=== PATIENT | female | born 1950 | race Hispanic/Latino ===

== ENCOUNTER 2022-09-12 08:51 | Emergency (ER) | payer OTHER ==
--- OUTSIDE RECORDS SUMMARY | 2022-09-12 09:04 | XMS REPORT | Continuity of Care Document ---
:1950 Author Organization [facility] t Address [address] [place] [address] Care Team Providers Name Role Phone Blane Cartwright MD Primary Care Physician DARWIN HONEYCUTT Attending Clinician Unavailable BLANE CARTWRIGHT Attending Clinician Unavailable Gypsy Edwards Attending Clinician GYPSY THOMAS Attending Clinician Unavailable Blane Cartwright MD Attending Clinician IRMA FUENTES Attending Clinician Unavailable Irma Desai Attending Clinician Doctor Unassigned, [place] Attending Clinician Unavailable Pob, [facility] Main Attending Clinician Unavailable Kristina Thomas LVN Attending Clinician Unavailable RADIOLOGY Attending Clinician Unavailable DARRYL DOTY Attending Clinician Unavailable Darryl Doty MD Attending Clinician Dashawn White MD Attending Clinician DASHAWN WHITE Attending Clinician Unavailable JACKIE DESHPANDE Attending Clinician Unavailable Jackie Willard Attending Clinician Radiology Attending Clinician Unavailable Lab, Ang - Db Attending Clinician Unavailable LAXMI REJI S Attending Clinician Unavailable Reji López S Attending Clinician JENNIFER SERNA Attending Clinician Unavailable Jennifer Serna DO Attending Clinician Katrina Sullivan MD Attending Clinician KATRINA SULLIVAN Attending Clinician Unavailable RIKKI CARTER Attending Clinician Unavailable RIKKI CARTER Attending Clinician Unavailable Rikki Carter MD Attending Clinician , [facility] Sleep Lab Bed Attending Clinician Unavailable Omaghansa MATERIALS BRANCH CHIEFThongayemgerardo Attending Clinician Gina Light Attending Clinician GINA CASTANEDA Attending Clinician Unavailable Provider, [facility] Attending Clinician Unavailable [facility], [facility] Fam Pob I Attending Clinician Unavailable NORA HAYDEN Attending Clinician Unavailable Ashvin Sarmiento DO Attending Clinician GARY MCGILL Attending Clinician Unavailable Manjit Candelaria MD Attending Clinician MANJIT CANDELARIA Attending Clinician Unavailable Kg Villegas MD Attending Clinician KG VILLEGAS Attending Clinician Unavailable Zi Story MD Attending Clinician David Mcguire MD Attending Clinician DARWIN HONEYCUTT Admitting Clinician Unavailable EMMA GRAY Admitting Clinician Unavailable CARLINE ESPINAL Admitting Clinician Unavailable Payers Payer Name Policy Type Policy Number Effective Date Expiration Date S pako MEDICARE PART [id number] 2015 A \T\ B 00:00:00 [id number] 2021 00:00:00 [employer] [id number] 2014 [facility] [id number] 00:00:00 [facility] [id number]-PresentTri Branch care Problems Condition Condition Condition Status Onset Resolution Last Treating Co mments Source Name Details Category Date Date Treatment Clinician Date Oral Oral Disease Active 2021-10 Univers lesion lesion 11-06 ity of 00:00: [place] 00 Medical Branch Urge Urge Disease Active Overview: Univer s incontinen incontinen 06-01 Formattin ity of ce ce 00:00: g of this [place] 00 note Medical might be Branch different from the original. Added automatic ally from request for surgery [id number] Neuropathy Neuropathy Disease Active U nivers 2-07 ity of 00:00: [place] [facility] Rash Rash Disease Active Univers 2-07 ity of 00:00: [place] 00 Medical Branch OAB OAB Disease Active Univers (overactiv (overactiv 2-05 it y of e bladder) e bladder[place] [facility] [place] Screening Screening Disease Active Overview: Univers for for 05-31 Formattin ity of colorectal colorectal 00:00: g of this [place] cancer cancer 00 note Medical might be Branch different from the original. Added automatic ally from request for surgery [id number] Elevated Elevated Disease Active Unive rs AST (SGOT) AST (SGOT) 6-15 it y of 00:00: [place] 00 Medical Branch Anxiety Anxiety Disease Active Univers 3-08 ity of 00:00: [place] 00 Medical Branch Other Other Disease Active Univers fatigue fatigue 3-08 ity of 00:00: [place] 00 Medical Branch Depression Depression Disease Active 2014-10 U nivers 1-19 ity of 00:00: [place] 00 Medical Branch Herpes Herpes Disease Active 2014-10 Univers simplex simplex 1-19 ity of without without 00:00: [place] complicati complicati 00 Me dical on on Branch Insomnia Insomnia Disease Active 2014-10 Unive rs 1-19 ity of 00:00: [place] 00 Medical Branch Reflux Reflux Disease Active 2014-10 Univers esophagiti esophagiti -19 it y of s s 00:00: [place] 00 Medical Branch Hyperlipid Hyperlipid Disease Active 2014-10 U nivers emia emia -19 ity of 00:00: [place] 00 Medical Branch Menopausal Menopausal Disease Active 2014-10 U nivers syndrome syndrome -19 ity of 00:00: [place] 00 Medical Branch Migraine Migraine Disease Active 2014-10 Unive rs 1-19 ity of 00:00: [place] 00 Medical Branch Hypothyroi Hypothyroi Disease Active 2014-10 U nivers dism dism - ity of 00:00: [place] 00 Medical Branch Hypertensi Hypertensi Disease Active U nivers on on 12-21 ity of 00:00: [place] 00 Medical Branch Chronic Chronic Disease Active Univers pain pain -12 ity of disorder disorder 00:00: [place] 00 Medical [place] Allergies, Adverse Reactions, Alerts Allergy Allergy Status Severity Reaction(s) Onset Inactive Treating Comm ents Source Name Type Date Date Clinician HYDROXYC DRUG Active High Rash Univers HLOROQUI INGREDI 06-04 ity of NE 00:00: [place] 00 Medical Branch Hydroxyc Propensi Active Rash Patient Unive rs hloroqui ty to 06-04 reports ity of ne adverse 00:00: sever [place] reaction 00 rash. Medical s to Branch drug NO KNOWN Drug Active Univers ALLERGIE Class ity of S [facility] Social History Social Habit Start Date Stop Date Quantity Comments Source Exposure to 2022-08-27 2022-09-06 Not sure [facility] SARS-CoV-2 00:00:00 10:39:00 [facility] [place] [facility] (event) [place] Alcohol intake 2022-09-06 2022-09-06 0 /d University of 00:00:00 00:00:00 [facility] Tobacco use and 2022-04-29 2022-04-29 Smokeless tobacco Un iversity of exposure 00:00:00 00:00:00 non-user [facility] Sex [birth year] At [birth year] Universit y of 00:00:00 00:00:00 [facility] Smoking Status Start Date Stop Date Source Never smoked tobacco [facility] Medications Ordered Filled Start Stop Current Ordering Indication Dosage Frequency Signature Comments Components Source Medication Medication Date Date Medication? Clinician (SIG) Name Name predniSONE 2021-10 Yes [id number] 20mg Take 1 Univers 20 mg 1- 07 tablet by ity of tablet 00:00: mouth in [place] 00 the Medical morning. Branch predniSONE 2021-10 Yes [id number] 20mg Take 1 Univers 20 mg 1- 07 tablet by ity of tablet 00:00: mouth in [place] 00 the Medical morning. Branch predniSONE 2021-10 Yes [id number] 20mg Take 1 Univers 20 mg 1- 07 tablet by ity of tablet 00:00: mouth in [place] 00 the Medical morning. Branch nystatin 2021-10 Yes [id number] Apply to Univers 100,000 1-09 area(s) 2 ity of unit/gram 00:00: (two) [place] cream 00 times Medical daily. Branch triamcinolo 2021- Yes [id number] Apply TID Univers ne 10-18 07 after ity of acetonide 00:00: meals. [place] 0.1 % 00 Follow-up Medical dental with Branch paste dentist. nystatin 2021-10 Yes [id number] Apply to Univers 100,000 1-09 area(s) 2 ity of unit/gram 00:00: (two) [place] cream 00 times Medical daily. Branch triamcinolo 2021- Yes [id number] Apply TID Univers ne 10-18 07 after ity of acetonide 00:00: meals. [place] 0.1 % 00 Follow-up Medical dental with Branch paste dentist. nystatin 2021-10 Yes [id number] Apply to Univers 100,000 1-09 area(s) 2 ity of unit/gram 00:00: (two) [place] cream 00 times Medical daily. Branch triamcinolo 2021- Yes [id number] Apply TID Univers ne 10-18 07 after ity of acetonide 00:00: meals. [place] 0.1 % 00 Follow-up Medical dental with Branch paste dentist. nystatin 2021-10 Yes [id number] Apply to Univers 100,000 1-09 area(s) 2 ity of unit/gram 00:00: (two) [place] cream 00 times Medical daily. Branch triamcinolo 2021- Yes [id number] Apply TID Univers ne 10-18 07 after ity of acetonide 00:00: meals. [place] 0.1 % 00 Follow-up Medical dental with Branch paste dentist. nystatin 2021-10 Yes [id number] Apply to Univers 100,000 1-09 area(s) 2 ity of unit/gram 00:00: (two) [place] cream 00 times Medical daily. Branch triamcinolo 2021- Yes [id number] Apply TID Univers ne 1 07 after ity of acetonide 00:00: meals. [place] 0.1 % 00 Follow-up Medical dental with Branch paste dentist. nystatin 2021-10 Yes [id number] Apply to Univers 100,000 10-18 area(s) 2 ity of unit/gram 00:00: (two) [place] cream 00 times Medical daily. Branch triamcinolo 2021-10 Yes [id number] Apply TID Univers ne 10-18 07 after ity of acetonide 00:00: meals. [place] 0.1 % 00 Follow-up Medical dental with Branch paste dentist. nystatin 2021-10 Yes [id number] Apply to Univers 100,000 10-18 area(s) 2 ity of unit/gram 00:00: (two) [place] cream 00 times Medical daily. Branch triamcinolo 2021-10 Yes [id number] Apply TID Univers ne 10-18 07 after ity of acetonide 00:00: meals. [place] 0.1 % 00 Follow-up Medical dental with Branch paste dentist. HYDROcodone 2021-10 Yes [id number] 1{tbl} Take 1 Un enrique -acetaminop 1-03 tablet by ity of hen 10-325 00:00: mouth [place] mg tablet 00 every 6 Medical (six) Branch hours as needed for Pain (scale 4-6). Indication s: chronic pain valACYclovi 2021-10 Yes [id number] 500mg Take 1 Univers r (VALTREX) 1-03 tablet by ity of 500 mg 00:00: mouth in [place] tablet 00 the Medical morning Branch and 1 tablet at noon and 1 tablet in the evening. HYDROcodone 2021-10 Yes [id number] 1{tbl} Take 1 Un enrique -acetaminop 1-03 tablet by ity of hen 10-325 00:00: mouth [place] mg tablet 00 every 6 Medical (six) Branch hours as needed for Pain (scale 4-6). Indication s: chronic pain valACYclovi 2021-10 Yes [id number] 500mg Take 1 Univers r (VALTREX) 1-03 tablet by ity of 500 mg 00:00: mouth in [place] tablet 00 the Medical morning Branch and 1 tablet at noon and 1 tablet in the evening. HYDROcodone 2021-10 Yes [id number] 1{tbl} Take 1 Un enrique -acetaminop 1-03 tablet by ity of hen 10-325 00:00: mouth [place] mg tablet 00 every 6 Medical (six) Branch hours as needed for Pain (scale 4-6). Indication s: chronic pain valACYclovi 2021-10 Yes [id number] 500mg Take 1 Univers r (VALTREX) 1-03 tablet by ity of 500 mg 00:00: mouth in [place] tablet 00 the Medical morning Branch and 1 tablet at noon and 1 tablet in the evening. HYDROcodone 2021-10 Yes [id number] 1{tbl} Take 1 Un enrique -acetaminop 1-03 tablet by ity of hen 10-325 00:00: mouth [place] mg tablet 00 every 6 Medical (six) Branch hours as needed for Pain (scale 4-6). Indication s: chronic pain valACYclovi 2021-10 Yes [id number] 500mg Take 1 Univers r (VALTREX) 1-03 tablet by ity of 500 mg 00:00: mouth in [place] tablet 00 the Medical morning Branch and 1 tablet at noon and 1 tablet in the evening. HYDROcodone 2021-10 Yes [id number] 1{tbl} Take 1 Un enrique -acetaminop 1-03 tablet by ity of hen 10-325 00:00: mouth [place] mg tablet 00 every 6 Medical (six) Branch hours as needed for Pain (scale 4-6). Indication s: chronic pain valACYclovi 2021-10 Yes [id number] 500mg Take 1 Univers r (VALTREX) 1-03 tablet by ity of 500 mg 00:00: mouth in [place] tablet the Medical morning Branch and 1 tablet at noon and 1 tablet in the evening. HYDROcodone 2021-10 Yes [id number] 1{tbl} Take 1 Un enrique -acetaminop 1-03 tablet by ity of hen 10-325 00:00: mouth [place] mg tablet 00 every 6 Medical (six) Branch hours as needed for Pain (scale 4-6). Indication s: chronic pain valACYclovi 2021-10 Yes [id number] 500mg Take 1 Univers r (VALTREX) 1-03 tablet by ity of 500 mg 00:00: mouth in [place] tablet 00 the Medical morning Branch and 1 tablet at noon and 1 tablet in the evening. HYDROcodone 2021-10 Yes [id number] 1{tbl} Take 1 Un enrique -acetaminop 1-03 tablet by ity of hen 10-325 00:00: mouth [place] mg tablet 00 every 6 Medical (six) Branch hours as needed for Pain (scale 4-6). Indication s: chronic pain valACYclovi 2021-10 Yes [id number] 500mg Take 1 Univers r (VALTREX) 1-03 tablet by ity of 500 mg 00:00: mouth in [place] tablet 00 the Medical morning Branch and 1 tablet at noon and 1 tablet in the evening. HYDROcodone 2021-10 Yes [id number] 1{tbl} Take 1 Un enrique -acetaminop 1-03 tablet by ity of hen 10-325 00:00: mouth [place] mg tablet 00 every 6 Medical (six) Branch hours as needed for Pain (scale 4-6). Indication s: chronic pain valACYclovi 2021-10 Yes [id number] 500mg Take 1 Univers r (VALTREX) 1-03 tablet by ity of 500 mg 00:00: mouth in [place] tablet 00 the Medical morning Branch and 1 tablet at noon and 1 tablet in the evening. HYDROcodone 2021-10 Yes [id number] 1{tbl} Take 1 Un enrique -acetaminop 1-03 tablet by ity of hen 10-325 00:00: mouth [place] mg tablet 00 every 6 Medical (six) Branch hours as needed for Pain (scale 4-6). Indication s: chronic pain valACYclovi 2021-10 Yes [id number] 500mg Take 1 Univers r (VALTREX) 1-03 tablet by ity of 500 mg 00:00: mouth in [place] tablet 00 the Medical morning Branch and 1 tablet at noon and 1 tablet in the evening. HYDROcodone 2021-10 Yes [id number] 1{tbl} Take 1 Un enrique -acetaminop 1-03 tablet by ity of hen 10-325 00:00: mouth [place] mg tablet 00 every 6 Medical (six) Branch hours as needed for Pain (scale 4-6). Indication s: chronic pain valACYclovi 2021-10 Yes [id number] 500mg Take 1 Univers r (VALTREX) 1-03 tablet by ity of 500 mg 00:00: mouth in [place] tablet 00 the Medical morning Branch and 1 tablet at noon and 1 tablet in the evening. valACYclovi 2021-10 [id number] 500mg Take 1 Univers r (VALTREX) 1-03 11-03 tablet by it y of 500 mg 00:00: 00:00 mouth in [place] tablet 00 :00 the Medical morning Branch and 1 tablet at noon and 1 tablet in the evening. HYDROcodone 2021-10 No [id number] 1{tbl} Take 1 U nivers -acetaminop 10-12 tablet by it y of hen 10-325 00:00: 00:00 mouth [place] mg tablet 00 :00 every 6 Medical (six) Branch hours as needed for Pain (scale 4-6). Indication s: chronic pain valACYclovi 2021-10- No [id number] 500mg Take 1 Univers r (VALTREX) 10-12 tablet by it y of 500 mg 00:00: 00:00 mouth in [place] tablet 00 :00 the Medical morning Branch and 1 tablet at noon and 1 tablet in the evening. HYDROcodone 2021-10 No [id number] 1{tbl} Take 1 U nivers -acetaminop 10-12 tablet by it y of hen 10-325 00:00: 00:00 mouth [place] mg tablet 00 :00 every 6 Medical (six) Branch hours as needed for Pain (scale 4-6). Indication s: chronic pain lovastatin 2021-10 Yes [id number] 40mg Take 1 Univers 40 mg 1-01 tablet by ity of tablet 00:00: mouth at [place] [address] bedtime. Medical Branch lovastatin 2021-10 Yes [id number] 40mg Take 1 Univers 40 mg 1-01 tablet by ity of tablet 00:00: mouth at [place] [address] bedtime. Medical Branch lovastatin 2021-10 Yes [id number] 40mg Take 1 Univers 40 mg 1-01 tablet by ity of tablet 00:00: mouth at [place] [address] bedtime. Medical Branch lovastatin 2021-10 Yes [id number] 40mg Take 1 Univers 40 mg 1-01 tablet by ity of tablet 00:00: mouth at [place] [address] bedtime. Medical Branch lovastatin 2021-10 Yes [id number] 40mg Take 1 Univers 40 mg 1-01 tablet by ity of tablet 00:00: mouth at [place] [address] bedtime. Medical Branch lovastatin 2021-10 Yes [id number] 40mg Take 1 Univers 40 mg 1-01 tablet by ity of tablet 00:00: mouth at [place] [address] bedtime. Medical Branch lovastatin 2021-10 Yes [id number] 40mg Take 1 Univers 40 mg 1-01 tablet by ity of tablet 00:00: mouth at [place] [address] bedtime. [facility] lovastatin 2021-10 Yes [id number] 40mg Take 1 Univers 40 mg 1-01 tablet by ity of tablet 00:00: mouth at [place] 00 bedtime. [facility] lovastatin 2021-10 Yes [id number] 40mg Take 1 Univers 40 mg 1-01 tablet by ity of tablet 00:00: mouth at [place] 00 bedtime. [facility] lovastatin 2021-10 Yes [id number] 40mg Take 1 Univers 40 mg 1-01 tablet by ity of tablet 00:00: mouth at [place] 00 bedtime. [facility] lovastatin 2021-10 Yes [id number] 40mg Take 1 Univers 40 mg 1-01 tablet by ity of tablet 00:00: mouth at [place] 00 bedtime. [facility] lovastatin 2021-10 Yes [id number] 40mg Take 1 Univers 40 mg 1-01 tablet by ity of tablet 00:00: mouth at [place] [address] bedtime. [facility] levothyroxi 2021-10 Yes [id number] TAKE ONE Univers ne 0-25 TABLET BY ity of (SYNTHROID) 00:00: MOUTH [place] 50 mcg 00 EVERY DAY Medical tablet IN THE [place] MORNING levothyroxi 2021-10 Yes [id number] TAKE ONE Univers ne 0-25 TABLET BY ity of (SYNTHROID) 00:00: MOUTH [place] 50 mcg 00 EVERY DAY Medical tablet IN THE [facility] levothyroxi 2021-10 Yes [id number] TAKE ONE Univers ne 0-25 TABLET BY ity of (SYNTHROID) 00:00: MOUTH [place] 50 mcg 00 EVERY DAY Medical tablet IN THE [place] MORNING levothyroxi 2021-10 Yes [id number] TAKE ONE Univers ne 0-25 TABLET BY ity of (SYNTHROID) 00:00: MOUTH [place] 50 mcg 00 EVERY DAY Medical tablet IN THE [place] MORNING levothyroxi 2021-10 Yes [id number] TAKE ONE Univers ne 0-25 TABLET BY ity of (SYNTHROID) 00:00: MOUTH [place] 50 mcg 00 EVERY DAY Medical tablet IN THE [place] MORNING levothyroxi 2021-10 Yes [id number] TAKE ONE Univers ne 0-25 TABLET BY ity of (SYNTHROID) 00:00: MOUTH [place] 50 mcg 00 EVERY DAY Medical tablet IN THE [place] MORNING levothyroxi 2021-10 Yes [id number] TAKE ONE Univers ne 0-25 TABLET BY ity of (SYNTHROID) 00:00: MOUTH [place] 50 mcg 00 EVERY DAY Medical tablet IN THE [place] MORNING levothyroxi 2021-10 Yes [id number] TAKE ONE Univers ne 0-25 TABLET BY ity of (SYNTHROID) 00:00: MOUTH [place] 50 mcg 00 EVERY DAY Medical tablet IN THE [place] MORNING levothyroxi 2021-10 Yes [id number] TAKE ONE Univers ne 0-25 TABLET BY ity of (SYNTHROID) 00:00: MOUTH [place] 50 mcg 00 EVERY DAY Medical tablet IN THE [place] MORNING levothyroxi 2021-10 Yes [id number] TAKE ONE Univers ne 0-25 TABLET BY ity of (SYNTHROID) 00:00: MOUTH [place] 50 mcg 00 EVERY DAY Medical tablet IN THE [place] MORNING levothyroxi 2021-10 Yes [id number] TAKE ONE Univers ne 0-25 TABLET BY ity of (SYNTHROID) 00:00: MOUTH [place] 50 mcg 00 EVERY DAY Medical tablet IN THE [place] MORNING levothyroxi 2021-10 Yes [id number] TAKE ONE Univers ne 0-25 TABLET BY ity of (SYNTHROID) 00:00: MOUTH [place] 50 mcg 00 EVERY DAY Medical tablet IN THE [place] MORNING levothyroxi 2021-10 Yes [id number] TAKE ONE Univers ne 0-25 TABLET BY ity of (SYNTHROID) 00:00: MOUTH [place] 50 mcg 00 EVERY DAY Medical tablet IN THE [place] MORNING azithromyci 2021-10 Yes [id number] 250mg Z-Giacomo = Univers n 250 mg 0-20 500 mg day ity o f tablet 00:00: 1, then [place] 00 250 mg Medical days 2 to Branch 5. azithromyci 2021-10 Yes [id number] 250mg Z-Giacomo = Univers n 250 mg 0-20 500 mg day ity o f tablet 00:00: 1, then [place] 00 250 mg Medical days 2 to Branch 5. azithromyci 2021-10 Yes [id number] 250mg Z-Giacomo = Univers n 250 mg 0-20 500 mg day ity o f tablet 00:00: 1, then [place] 00 250 mg Medical days 2 to Branch 5. azithromyci 2021-10 Yes [id number] 250mg Z-Giacomo = Univers n 250 mg 0-20 500 mg day ity o f tablet 00:00: 1, then [place] 00 250 mg Medical days 2 to Branch 5. azithromyci 2021-10 Yes [id number] 250mg Z-Giacomo = Univers n 250 mg 0-20 500 mg day ity o f tablet 00:00: 1, then [place] 00 250 mg Medical days 2 to Branch 5. azithromyci 2021-10 Yes [id number] 250mg Z-Giacomo = Univers n 250 mg 0-20 500 mg day ity o f tablet 00:00: 1, then [place] 00 250 mg Medical days 2 to Branch 5. azithromyci 2021-10 Yes [id number] 250mg Z-Giacomo = Univers n 250 mg 0-20 500 mg day ity o f tablet 00:00: 1, then [place] 00 250 mg Medical days 2 to Branch 5. azithromyci 2021-10 Yes [id number] 250mg Z-Giacomo = Univers n 250 mg 0-20 500 mg day ity o f tablet 00:00: 1, then [place] 00 250 mg Medical days 2 to Branch 5. azithromyci 2021-10 Yes [id number] 250mg Z-Giacomo = Univers n 250 mg 0-20 500 mg day ity o f tablet 00:00: 1, then [place] 00 250 mg Medical days 2 to Branch 5. azithromyci 2021-10- No [id number] 250mg Z-Giacomo = Univers n 250 mg 0-20 11-09 500 mg day ity of tablet 00:00: 00:00 1, then [place] 00 :00 250 mg Medical days 2 to Branch 5. azithromyci 2021-10- No [id number] 250mg Z-Giacomo = Univers n 250 mg 0-20 11-09 500 mg day ity of tablet 00:00: 00:00 1, then [place] 00 :00 250 mg Medical days 2 to Branch 5. montelukast 2021-10 Yes [id number] 10mg Take 1 Univers 10 mg 0-13 tablet by ity of tablet 00:00: mouth in [place] 00 the Medical morning. Branch montelukast 2021-10 Yes [id number] 10mg Take 1 Univers 10 mg 0-13 tablet by ity of tablet 00:00: mouth in [place] 00 the Medical morning. Branch montelukast 2021-10 Yes [id number] 10mg Take 1 Univers 10 mg 0-13 tablet by ity of tablet 00:00: mouth in [place] 00 the Medical morning. Branch montelukast 2021-10 Yes [id number] 10mg Take 1 Univers 10 mg 0-13 tablet by ity of tablet 00:00: mouth in [place] 00 the Medical morning. Branch montelukast 2021-10 Yes [id number] 10mg Take 1 Univers 10 mg 0-13 tablet by ity of tablet 00:00: mouth in [place] 00 the Medical morning. Branch montelukast 2021-10 Yes [id number] 10mg Take 1 Univers 10 mg 0-13 tablet by ity of tablet 00:00: mouth in [place] 00 the Medical morning. Branch montelukast 2021-10 Yes [id number] 10mg Take 1 Univers 10 mg 0-13 tablet by ity of tablet 00:00: mouth in [place] 00 the Medical morning. [place] montelukast 2021-10 Yes [id number] 10mg Take 1 Univers 10 mg 0-13 tablet by ity of tablet 00:00: mouth in [place] the Medical morning. [place] montelukast 2021-10 Yes [id number] 10mg Take 1 Univers 10 mg 0-13 tablet by ity of tablet 00:00: mouth in [place] 00 the Medical morning. [place] montelukast 2021-10 Yes [id number] 10mg Take 1 Univers 10 mg 0-13 tablet by ity of tablet 00:00: mouth in [place] 00 the Medical morning. [place] montelukast 2021-10 Yes [id number] 10mg Take 1 Univers 10 mg 0-13 tablet by ity of tablet 00:00: mouth in [place] 00 the Medical morning. [place] montelukast 2021-10 Yes [id number] 10mg Take 1 Univers 10 mg 0-13 tablet by ity of tablet 00:00: mouth in [place] 00 the Medical morning. [place] montelukast 2021-10 Yes [id number] 10mg Take 1 Univers 10 mg 0-13 tablet by ity of tablet 00:00: mouth in [place] 00 the Medical morning. [place] montelukast 2021-10 Yes [id number] 10mg Take 1 Univers 10 mg 0-13 tablet by ity of tablet 00:00: mouth in [place] 00 the Medical morning. [place] montelukast 2021-10 Yes [id number] 10mg Take 1 Univers 10 mg 0-13 tablet by ity of tablet 00:00: mouth in [place] 00 the Medical morning. Branch montelukast 2021-10 Yes [id number] 10mg Take 1 Univers 10 mg 0-13 tablet by ity of tablet 00:00: mouth in [place] the Medical morning. Branch montelukast 2021-10 Yes [id number] 10mg Take 1 Univers 10 mg 0-13 tablet by ity of tablet 00:00: mouth in [place] the morning. Branch montelukast 2021-10 Yes [id number] 10mg Take 1 Univers 10 mg 0-13 tablet by ity of tablet 00:00: mouth in [place] the Medical morning. Branch montelukast 2021-10 Yes [id number] 10mg Take 1 Univers 10 mg 0-13 tablet by ity of tablet 00:00: mouth in [place] the Medical morning. Branch econazole 2021-10 Yes ON THE Univer s nitrate 1 % 0-11 SKIN ity o f cream 00:00: DIRECTED [place] 00 APPLY A Medical THIN FILM Branch TO AFFECTED AREAS OF FEET ONCE DAILY AFTER SHOWER econazole 2021-10 Yes ON THE Univer s nitrate 1 % 0-11 SKIN ity o f cream 00:00: DIRECTED [place] 00 APPLY A Medical THIN FILM Branch TO AFFECTED AREAS OF FEET ONCE DAILY AFTER SHOWER econazole 2021-10 Yes ON THE Univer s nitrate 1 % 0-11 SKIN ity o f cream 00:00: DIRECTED [place] 00 APPLY A Medical THIN FILM Branch TO AFFECTED AREAS OF FEET ONCE DAILY AFTER SHOWER econazole 2021-10 Yes ON THE Univer s nitrate 1 % 0-11 SKIN ity o f cream 00:00: DIRECTED [place] 00 APPLY A Medical THIN FILM Branch TO AFFECTED AREAS OF FEET ONCE DAILY AFTER SHOWER econazole 2021-10 Yes ON THE Univer s nitrate 1 % 0-11 SKIN ity o f cream 00:00: DIRECTED [place] 00 APPLY A Medical THIN FILM Branch TO AFFECTED AREAS OF FEET ONCE DAILY AFTER SHOWER econazole 2021-10 Yes ON THE Univer s nitrate 1 % 0-11 SKIN ity o f cream 00:00: DIRECTED [place] 00 APPLY A Medical THIN FILM Branch TO AFFECTED AREAS OF FEET ONCE DAILY AFTER SHOWER econazole 2021-10 Yes ON THE Univer s nitrate 1 % 0-11 SKIN ity o f cream 00:00: DIRECTED [place] 00 APPLY A Medical THIN FILM Branch TO AFFECTED AREAS OF FEET ONCE DAILY AFTER SHOWER econazole 2021-10 Yes ON THE [facility] nitrate 1 % 0-11 SKIN ity o f cream 00:00: DIRECTED [place] 00 APPLY A Medical THIN FILM Branch TO AFFECTED AREAS OF FEET ONCE DAILY AFTER SHOWER econazole 2021-10 Yes ON THE [facility] nitrate 1 % 0-11 SKIN ity o f cream 00:00: DIRECTED [place] 00 APPLY A Medical THIN FILM Branch TO AFFECTED AREAS OF FEET ONCE DAILY AFTER SHOWER econazole 2021-10 202- No ON THE Un[facility] rs nitrate 1 % 0-11 11-09 SKIN ity of cream 00:00: 00:00 DIRECTED [place] 00 :00 APPLY A Medical THIN FILM Branch TO AFFECTED AREAS OF FEET ONCE DAILY AFTER SHOWER econazole 2021-10- No ON THE Un[facility] rs nitrate 1 % 0-11 11-09 SKIN ity of cream 00:00: 00:00 DIRECTED [place] 00 :00 APPLY A Medical THIN FILM Branch TO AFFECTED AREAS OF FEET ONCE DAILY AFTER SHOWER traMADoL 50 2021-10 Yes TAKE 1 Univ ers mg tablet 0-07 TABLET BY ity o f 00:00: MOUTH 00 TWICE A Medical DAY FOR 15 Branch DAYS traMADoL 50 2021-10 Yes TAKE 1 Univ ers mg tablet 0-07 TABLET BY ity o f 00:00: MOUTH 00 TWICE A Medical DAY FOR 15 Branch DAYS traMADoL 50 2021-10 Yes TAKE 1 [facility] ers mg tablet 0-07 TABLET BY ity o f 00:00: MOUTH 00 TWICE A Medical DAY FOR 15 Branch DAYS traMADoL 50 2021-10 Yes TAKE 1 [facility] mg tablet 0-07 TABLET BY ity o f 00:00: MOUTH [place] 00 TWICE A Medical DAY FOR 15 Branch DAYS traMADoL 50 2021-10 Yes TAKE 1 [facility] mg tablet 0-07 TABLET BY ity o f 00:00: MOUTH 00 TWICE A Medical DAY FOR 15 Branch DAYS traMADoL 50 2021-10 Yes TAKE 1 [facility] mg tablet 0-07 TABLET BY ity o f 00:00: MOUTH 00 TWICE A Medical DAY FOR 15 Branch DAYS traMADoL 50 2021-10 Yes TAKE 1 [facility] mg tablet 0-07 TABLET BY ity o f 00:00: MOUTH 00 TWICE A Medical DAY FOR 15 Branch DAYS traMADoL 50 2021-10 Yes TAKE 1 [facility] mg tablet 0-07 TABLET BY ity o f 00:00: MOUTH [place] 00 TWICE A Medical DAY FOR 15 Branch DAYS traMADoL 50 2021-10 Yes TAKE 1 [facility] mg tablet 0-07 TABLET BY ity o f 00:00: MOUTH [place] 00 TWICE A Medical DAY FOR 15 Branch DAYS traMADoL 50 2021-10 Yes TAKE 1 [facility] mg tablet 0-07 TABLET BY ity o f 00:00: MOUTH [place] 00 TWICE A Medical DAY FOR 15 Branch DAYS traMADoL 50 2021-10 Yes TAKE 1 [facility] mg tablet 0-07 TABLET BY ity o f 00:00: MOUTH [place] 00 TWICE A Medical DAY FOR 15 Branch DAYS traMADoL 50 2021-10 Yes TAKE 1 [facility] mg tablet 0-07 TABLET BY ity o f 00:00: MOUTH [place] 00 TWICE A Medical DAY FOR 15 Branch DAYS traMADoL 50 2021-10 Yes TAKE 1 [facility] mg tablet 0-07 TABLET BY ity o f 00:00: MOUTH [place] 00 TWICE A Medical DAY FOR 15 Branch DAYS traMADoL 50 2021-10 Yes TAKE 1 [facility] mg tablet 0-07 TABLET BY ity o f 00:00: MOUTH [place] 00 TWICE A Medical DAY FOR 15 Branch DAYS traMADoL 50 2021-10 Yes TAKE 1 [facility] mg tablet 0-07 TABLET BY ity o f 00:00: MOUTH [place] 00 TWICE A Medical DAY FOR 15 Branch DAYS traMADoL 50 2021-10 Yes TAKE 1 [facility] mg tablet 0-07 TABLET BY ity o f 00:00: MOUTH [place] 00 TWICE A Medical DAY FOR 15 Branch DAYS traMADoL 50 2021-10 Yes TAKE 1 [facility] mg tablet 0-07 TABLET BY ity o f 00:00: MOUTH [place] 00 TWICE A Medical DAY FOR 15 Branch DAYS traMADoL 50 2021-10 Yes TAKE 1 [facility] mg tablet 0-07 TABLET BY ity o f 00:00: MOUTH [place] 00 TWICE A Medical DAY FOR 15 Branch DAYS traMADoL 50 2021-10 Yes TAKE 1 [facility] mg tablet 0-07 TABLET BY ity o f 00:00: MOUTH [place] 00 TWICE A Medical DAY FOR 15 Branch DAYS olmesartan Yes [id number] 20mg Take 1 U nivers 20 mg 9-19 tablet by ity of tablet 00:00: mouth in [place] 00 the Medical morning. Branch olmesartan Yes [id number] 20mg Take 1 U nivers 20 mg 9-19 tablet by ity of tablet 00:00: mouth in [place] 00 the Medical morning. Branch olmesartan 2022-0 Yes [id number] 20mg Take 1 U nivers 20 mg 9-19 tablet by ity of tablet 00:00: mouth in [place] 00 the Medical morning. Branch olmesartan 2022-0 Yes [id number] 20mg Take 1 [facility]ivers 20 mg 9-19 tablet by ity of tablet 00:00: mouth in [place] 00 the Medical morning. Branch olmesartan 2022-0 Yes [id number] 20mg Take 1 [facility] 20 mg 9-19 tablet by ity of tablet 00:00: mouth in [place] the Medical morning. Branch olmesartan 2022-0 Yes [id number] 20mg Take 1 U [facility] 20 mg 9-19 tablet by ity of tablet 00:00: mouth in [place] the Medical morning. Branch olmesartan 2022-0 Yes [id number] 20mg Take 1 U [facility]ivers 20 mg 9-19 tablet by ity of tablet 00:00: mouth in [place] the Medical morning. Branch olmesartan 2022-0 Yes [id number] 20mg Take 1 [facility]ivers 20 mg 9-19 tablet by ity of tablet 00:00: mouth in [place] the Medical morning. Branch olmesartan 2022-0 Yes [id number] 20mg Take 1 [facility] 20 mg 9-19 tablet by ity of tablet 00:00: mouth in [place] the Medical morning. Branch olmesartan 2022-0 Yes [id number] 20mg Take 1 U nivers 20 mg 9-19 tablet by ity of tablet 00:00: mouth in [place] the Medical morning. Branch olmesartan 2022-0 Yes [id number] 20mg Take 1 [facility] 20 mg 9-19 tablet by ity of tablet 00:00: mouth in [place] 00 the Medical morning. Branch olmesartan 2022-0 Yes [id number] 20mg Take 1 [facility]ivers 20 mg 9-19 tablet by ity of tablet 00:00: mouth in [place] 00 the Medical morning. Branch olmesartan 2022-0 Yes [id number] 20mg Take 1 [facility]ivers 20 mg 9-19 tablet by ity of tablet 00:00: mouth in [place] 00 the Medical morning. Branch olmesartan 2022-0 Yes [id number] 20mg Take 1 U [facility]ivers 20 mg 9-19 tablet by ity of tablet 00:00: mouth in [place] the Medical morning. Branch olmesartan 2021-0 Yes [id number] 20mg Take 1 U nivers 20 mg 9-19 tablet by ity of tablet 00:00: mouth in [place] the Medical morning. Branch olmesartan 2021-0 Yes [id number] 20mg Take 1 U nivers 20 mg 9-19 tablet by ity of tablet 00:00: mouth in [place] the Medical morning. Branch olmesartan 2021-0 Yes [id number] 20mg Take 1 U [facility]ivers 20 mg 9-19 tablet by ity of tablet 00:00: mouth in [place] the morning. Branch olmesartan 2021-0 Yes [id number] 20mg Take 1 [facility] 20 mg 9-19 tablet by ity of tablet 00:00: mouth in [place] the morning. Branch olmesartan 2021-0 Yes [id number] 20mg Take 1 U [facility] 20 mg 9-19 tablet by ity of tablet 00:00: mouth in [place] the morning. Branch olmesartan 2021-0 Yes [id number] 20mg Take 1 [facility] 20 mg 9-19 tablet by ity of tablet 00:00: mouth in [place] the morning. Branch aspirin 81 0 Yes 81mg Take 81 mg U nivers mg EC 9-02 by mouth ity of tablet 23:26: in the [place] morning. Medical Branch conjugated 0 Yes 1g Insert 1 g U nivers estrogens 06-11 into ity of (PREMARIN) 23:26: vagina 2 [place] 0.625 03 (two) Medical mg/gram times per Branch vaginal week. cream cycloSPORIN 0 Yes 1[drp] Place 1 U nivers E 9-02 Drop in ity of (RESTASIS) 23:26: both eyes [place] 0.05 % 03 every 12 Medical drops (twelve) Branch hours. OXcarbazepi 0 Yes 150mg Take 150 U nivers ne 150 mg 9-02 mg by ity of tablet 23:26: mouth in [place] 03 the Medical morning Branch and 150 mg in the evening. aspirin 81 2021-0 Yes 81mg Take 81 mg U nivers mg EC 9-02 by mouth ity of tablet 23:26: in the [place] 03 morning. Medical Branch conjugated 2-0 Yes 1g Insert 1 g U nivers estrogens 9-02 into ity of (PREMARIN) 23:26: vagina 2 [place] 0.625 03 (two) Medical mg/gram times per Branch vaginal week. cream cycloSPORIN 2022-0 Yes 1[drp] Place 1 U nivers E 9-02 Drop in ity of (RESTASIS) 23:26: both eyes [place] 0.05 % 03 every 12 Medical drops (twelve) Branch hours. OXcarbazepi 2022-0 Yes 150mg Take 150 U nivers ne 150 mg 9-02 mg by ity of tablet 23:26: mouth in [place] 03 the Medical morning Branch and 150 mg in the evening. aspirin 81 2-0 Yes 81mg Take 81 mg U nivers mg EC 9-02 by mouth ity of tablet 23:26: in the [place] morning. Medical Branch conjugated 2-0 Yes 1g Insert 1 g U nivers estrogens - into ity of (PREMARIN) 23:26: vagina 2 [place] 0.625 03 (two) Medical mg/gram times per Branch vaginal week. cream cycloSPORIN 2-0 Yes 1[drp] Place 1 U nivers E 9-02 Drop in ity of (RESTASIS) 23:26: both eyes [place] 0.05 % 03 every 12 Medical drops (twelve) Branch hours. OXcarbazepi 2022-0 Yes 150mg Take 150 U nivers ne 150 mg 9-02 mg by ity of tablet 23:26: mouth in [place] 03 the Medical morning Branch and 150 mg in the evening. aspirin 81 2-0 Yes 81mg Take 81 mg U nivers mg EC 9-02 by mouth ity of tablet 23:26: in the [place] 03 morning. Medical Branch conjugated 2-0 Yes 1g Insert 1 g U nivers estrogens 9-02 into ity of (PREMARIN) 23:26: vagina 2 [place] 0.625 03 (two) Medical mg/gram times per Branch vaginal week. cream cycloSPORIN 2022-0 Yes 1[drp] Place 1 U nivers E 9-02 Drop in ity of (RESTASIS) 23:26: both eyes [place] 0.05 % 03 every 12 Medical drops (twelve) Branch hours. OXcarbazepi 2022-0 Yes 150mg Take 150 U nivers ne 150 mg 9-02 mg by ity of tablet 23:26: mouth in [place] 03 the Medical morning Branch and 150 mg in the evening. aspirin 81 2022-0 Yes 81mg Take 81 mg U nivers mg EC 9-02 by mouth ity of tablet 23:26: in the [place] 03 morning. Medical Branch conjugated 2022-0 Yes 1g Insert 1 g U nivers estrogens 9-02 into ity of (PREMARIN) 23:26: vagina 2 [place] 0.625 03 (two) Medical mg/gram times per Branch vaginal week. cream cycloSPORIN 2022-0 Yes 1[drp] Place 1 U nivers E 9-02 Drop in ity of (RESTASIS) 23:26: both eyes [place] 0.05 % 03 every 12 Medical drops (twelve) Branch hours. OXcarbazepi 2022-0 Yes 150mg Take 150 U nivers ne 150 mg 9-02 mg by ity of tablet 23:26: mouth in [place] the Medical morning Branch and 150 mg in the evening. aspirin 81 2022-0 Yes 81mg Take 81 mg U nivers mg EC 9-02 by mouth ity of tablet 23:26: in the [place] morning. Medical Branch conjugated 2-0 Yes 1g Insert 1 g U nivers estrogens 9-02 into ity of (PREMARIN) 23:26: vagina 2 [place] 0.625 03 (two) Medical mg/gram times per Branch vaginal week. cream cycloSPORIN 2022-0 Yes 1[drp] Place 1 U nivers E 9-02 Drop in ity of (RESTASIS) 23:26: both eyes [place] 0.05 % 03 every 12 Medical drops (twelve) Branch hours. OXcarbazepi 2022-0 Yes 150mg Take 150 U nivers ne 150 mg 9-02 mg by ity of tablet 23:26: mouth in [place] the Medical morning Branch and 150 mg in the evening. aspirin 81 2022-0 Yes 81mg Take 81 mg U nivers mg EC 9-02 by mouth ity of tablet 23:26: in the [place] 03 morning. Medical Branch conjugated 2022-0 Yes 1g Insert 1 g U nivers estrogens 9-02 into ity of (PREMARIN) 23:26: vagina 2 [place] 0.625 03 (two) Medical mg/gram times per Branch vaginal week. cream cycloSPORIN 2022-0 Yes 1[drp] Place 1 U nivers E 9-02 Drop in ity of (RESTASIS) 23:26: both eyes [place] 0.05 % 03 every 12 Medical drops (twelve) Branch hours. OXcarbazepi 2022-0 Yes 150mg Take 150 U nivers ne 150 mg 9-02 mg by ity of tablet 23:26: mouth in [place] 03 the Medical morning Branch and 150 mg in the evening. aspirin 81 2-0 Yes 81mg Take 81 mg U nivers mg EC 9-02 by mouth ity of tablet 23:26: in the [place] 03 morning. Medical Branch conjugated 2021-0 Yes 1g Insert 1 g U nivers estrogens - into ity of (PREMARIN) 23:26: vagina 2 [place] 0.625 03 (two) Medical mg/gram times per Branch vaginal week. cream cycloSPORIN 2022-0 Yes 1[drp] Place 1 U nivers E 9-02 Drop in ity of (RESTASIS) 23:26: both eyes [place] 0.05 % 03 every 12 Medical drops (twelve) Branch hours. OXcarbazepi 2022-0 Yes 150mg Take 150 U nivers ne 150 mg 9-02 mg by ity of tablet 23:26: mouth in [place] 03 the Medical morning Branch and 150 mg in the evening. aspirin 81 2022-0 Yes 81mg Take 81 mg U nivers mg EC 9-02 by mouth ity of tablet 23:26: in the [place] 03 morning. Medical Branch conjugated 2-0 Yes 1g Insert 1 g U nivers estrogens 9-02 into ity of (PREMARIN) 23:26: vagina 2 [place] 0.625 03 (two) Medical mg/gram times per Branch vaginal week. cream cycloSPORIN 2022-0 Yes 1[drp] Place 1 U nivers E 9-02 Drop in ity of (RESTASIS) 23:26: both eyes [place] 0.05 % 03 every 12 Medical drops (twelve) Branch hours. OXcarbazepi 2022-0 Yes 150mg Take 150 U nivers ne 150 mg 9-02 mg by ity of tablet 23:26: mouth in [place] 03 the Medical morning Branch and 150 mg in the evening. aspirin 81 2022-0 Yes 81mg Take 81 mg U nivers mg EC 9-02 by mouth ity of tablet 23:26: in the [place] morning. Medical Branch conjugated 2-0 Yes 1g Insert 1 g U nivers estrogens - into ity of (PREMARIN) 23:26: vagina 2 [place] 0.625 03 (two) Medical mg/gram times per Branch vaginal week. cream cycloSPORIN 2022-0 Yes 1[drp] Place 1 U nivers E 9-02 Drop in ity of (RESTASIS) 23:26: both eyes [place] 0.05 % 03 every 12 Medical drops (twelve) Branch hours. OXcarbazepi 2022-0 Yes 150mg Take 150 U nivers ne 150 mg 9-02 mg by ity of tablet 23:26: mouth in [place] the Medical morning Branch and 150 mg in the evening. aspirin 81 2-0 Yes 81mg Take 81 mg U nivers mg EC 06-11 by mouth ity of tablet 23:26: in the [place] morning. Medical Branch conjugated 2021-0 Yes 1g Insert 1 g U nivers estrogens - into ity of (PREMARIN) 23:26: vagina 2 [place] 0.625 03 (two) Medical mg/gram times per Branch vaginal week. cream cycloSPORIN 2-0 Yes 1[drp] Place 1 U nivers E 9-02 Drop in ity of (RESTASIS) 23:26: both eyes [place] 0.05 % 03 every 12 Medical drops (twelve) Branch hours. OXcarbazepi 2022-0 Yes 150mg Take 150 U nivers ne 150 mg 9-02 mg by ity of tablet 23:26: mouth in [place] the Medical morning Branch and 150 mg in the evening. aspirin 81 2022-0 Yes 81mg Take 81 mg U nivers mg EC 9-02 by mouth ity of tablet 23:26: in the [place] morning. Medical Branch conjugated 2-0 Yes 1g Insert 1 g U nivers estrogens -02 into ity of (PREMARIN) 23:26: vagina 2 [place] 0.625 03 (two) Medical mg/gram times per Branch vaginal week. cream cycloSPORIN 2022-0 Yes 1[drp] Place 1 U nivers E 9-02 Drop in ity of (RESTASIS) 23:26: both eyes [place] 0.05 % 03 every 12 Medical drops (twelve) Branch hours. OXcarbazepi 2022-0 Yes 150mg Take 150 U nivers ne 150 mg 9-02 mg by ity of tablet 23:26: mouth in [place] 03 the Medical morning Branch and 150 mg in the evening. aspirin 81 2-0 Yes 81mg Take 81 mg U nivers mg EC 9-02 by mouth ity of tablet 23:26: in the [place] 03 morning. Medical Branch conjugated 2021-0 Yes 1g Insert 1 g U nivers estrogens 9-02 into ity of (PREMARIN) 23:26: vagina 2 [place] 0.625 03 (two) Medical mg/gram times per Branch vaginal week. cream cycloSPORIN 2-0 Yes 1[drp] Place 1 U nivers E 9-02 Drop in ity of (RESTASIS) 23:26: both eyes [place] 0.05 % 03 every 12 Medical drops (twelve) Branch hours. OXcarbazepi 2022-0 Yes 150mg Take 150 U nivers ne 150 mg 9-02 mg by ity of tablet 23:26: mouth in [place] the Medical morning Branch and 150 mg in the evening. aspirin 81 2-0 Yes 81mg Take 81 mg U nivers mg EC 9-02 by mouth ity of tablet 23:26: in the [place] 03 morning. Medical Branch conjugated 2021-0 Yes 1g Insert 1 g U nivers estrogens 9-02 into ity of (PREMARIN) 23:26: vagina 2 [place] 0.625 03 (two) Medical mg/gram times per Branch vaginal week. cream cycloSPORIN 2-0 Yes 1[drp] Place 1 U nivers E 9-02 Drop in ity of (RESTASIS) 23:26: both eyes [place] 0.05 % 03 every 12 Medical drops (twelve) Branch hours. OXcarbazepi 2022-0 Yes 150mg Take 150 U nivers ne 150 mg 9-02 mg by ity of tablet 23:26: mouth in [place] 03 the Medical morning Branch and 150 mg in the evening. aspirin 81 2022-0 Yes 81mg Take 81 mg U nivers mg EC 9-02 by mouth ity of tablet 23:26: in the [place] 03 morning. Medical Branch conjugated 2-0 Yes 1g Insert 1 g U nivers estrogens 9-02 into ity of (PREMARIN) 23:26: vagina 2 [place] 0.625 03 (two) Medical mg/gram times per Branch vaginal week. cream cycloSPORIN 2022-0 Yes 1[drp] Place 1 U nivers E 9-02 Drop in ity of (RESTASIS) 23:26: both eyes [place] 0.05 % 03 every 12 Medical drops (twelve) Branch hours. OXcarbazepi 2022-0 Yes 150mg Take 150 U nivers ne 150 mg 9-02 mg by ity of tablet 23:26: mouth in [place] 03 the Medical morning Branch and 150 mg in the evening. aspirin 81 2-0 Yes 81mg Take 81 mg U nivers mg EC 9-02 by mouth ity of tablet 23:26: in the [place] 03 morning. Medical Branch conjugated 2-0 Yes 1g Insert 1 g U nivers estrogens - into ity of (PREMARIN) 23:26: vagina 2 [place] 0.625 03 (two) Medical mg/gram times per Branch vaginal week. cream cycloSPORIN 2022-0 Yes 1[drp] Place 1 U nivers E 9-02 Drop in ity of (RESTASIS) 23:26: both eyes [place] 0.05 % 03 every 12 Medical drops (twelve) Branch hours. OXcarbazepi 2022-0 Yes 150mg Take 150 U nivers ne 150 mg 9-02 mg by ity of tablet 23:26: mouth in [place] 03 the Medical morning Branch and 150 mg in the evening. aspirin 81 2-0 Yes 81mg Take 81 mg U nivers mg EC 9-02 by mouth ity of tablet 23:26: in the [place] 03 morning. Medical Branch conjugated 2-0 Yes 1g Insert 1 g U nivers estrogens 9-02 into ity of (PREMARIN) 23:26: vagina 2 [place] 0.625 03 (two) Medical mg/gram times per Branch vaginal week. cream cycloSPORIN 2022-0 Yes 1[drp] Place 1 U nivers E 9-02 Drop in ity of (RESTASIS) 23:26: both eyes [place] 0.05 % 03 every 12 Medical drops (twelve) Branch hours. OXcarbazepi 2022-0 Yes 150mg Take 150 U nivers ne 150 mg 9-02 mg by ity of tablet 23:26: mouth in [place] 03 the Medical morning Branch and 150 mg in the evening. aspirin 81 2022-0 Yes 81mg Take 81 mg U nivers mg EC 9-02 by mouth ity of tablet 23:26: in the [place] 03 morning. Medical Branch conjugated 2022-0 Yes 1g Insert 1 g U nivers estrogens 9-02 into ity of (PREMARIN) 23:26: vagina 2 [place] 0.625 03 (two) Medical mg/gram times per Branch vaginal week. cream cycloSPORIN 2022-0 Yes 1[drp] Place 1 U nivers E 9-02 Drop in ity of (RESTASIS) 23:26: both eyes [place] 0.05 % 03 every 12 Medical drops (twelve) Branch hours. OXcarbazepi 2022-0 Yes 150mg Take 150 U nivers ne 150 mg 9-02 mg by ity of tablet 23:26: mouth in [place] the Medical morning Branch and 150 mg in the evening. aspirin 81 2-0 Yes 81mg Take 81 mg U nivers mg EC 9-02 by mouth ity of tablet 23:26: in the [place] 03 morning. Medical Branch conjugated 2-0 Yes 1g Insert 1 g U nivers estrogens 9-02 into ity of (PREMARIN) 23:26: vagina 2 [place] 0.625 03 (two) Medical mg/gram times per Branch vaginal week. cream cycloSPORIN 2022-0 Yes 1[drp] Place 1 U nivers E 9-02 Drop in ity of (RESTASIS) 23:26: both eyes [place] 0.05 % 03 every 12 Medical drops (twelve) Branch hours. OXcarbazepi 2022-0 Yes 150mg Take 150 U nivers ne 150 mg 9-02 mg by ity of tablet 23:26: mouth in [place] 03 the Medical morning Branch and 150 mg in the evening. aspirin 81 2022-0 Yes 81mg Take 81 mg U nivers mg EC 9-02 by mouth ity of tablet 23:26: in the [place] 03 morning. Medical Branch conjugated 2022-0 Yes 1g Insert 1 g U nivers estrogens 9-02 into ity of (PREMARIN) 23:26: vagina 2 [place] 0.625 03 (two) Medical mg/gram times per Branch vaginal week. cream cycloSPORIN Yes 1[drp] Place 1 U nivers E 9-02 Drop in ity of (RESTASIS) 23:26: both eyes [place] 0.05 % 03 every 12 Medical drops (twelve) Branch hours. OXcarbazepi Yes 150mg Take 150 U nivers ne 150 mg 9-02 mg by ity of tablet 23:26: mouth in [place] 03 the Medical morning Branch and 150 mg in the evening. bacteriosta 2021- No PRN, [facility] tic saline 06-10 Starting ity of 0.9 % 15:24: 16:00 on [place] injection 00 :42 06/10/22 at Medic al 1024, Branch Until [place] 06/10/22 at 1100, Routine, Intra-op water for 2021- No PRN, [facility] irrigation 06-10 Starting ity of irrigation 15:18: 16:00 on [facility] [place] solution 00 :42 06/10/22 at Medica l 1018, Branch Until [place] 06/10/22 at 1100, Routine, Intra-op clostridium 2021- No 100U 100 Units, Univers botulinum 06-10 Intramuscu ity of toxin 13:15: 15:24 lar, JAIME, [place] (BOTOX) 00 :00 1 dose, On Medica l injection [place] 06/10/22 Bran ch 100 Units at 0815, Routine, Intra-op<b r>council member approving Restricted medication : DARWIN HONEYCUTT lactated 2021- No 1000mL at 42 [facility] rs ringers IV 06-10 mL/hr, ity of infusion 12:15: 12:16 1,000 mL, [place] 1,000 mL 00 :00 IV Medical Infusion, Branch ONCE, 1 dose, On [place] 06/10/22 at 0715, Routine, [facility] Pre-op lactated 2021- No 1000mL at 42 [facility] rs ringers IV 06-10 mL/hr, ity of infusion 12:15: 12:16 1,000 mL, [place] 1,000 mL 00 :00 IV Medical Infusion, Branch ONCE, 1 dose, On [place] 06/10/22 at 0715, Routine, [facility] Pre-op Milnacipran 2022-0 Yes 100mg Take 100 U nivers 100 mg Tab 9-01 mg by ity of 11:28: mouth 2 [place] [address] (two) Medical times [place] daily. aspirin 81 2022-0 Yes 81mg Take 81 mg U nivers mg EC 9-01 by mouth ity of tablet 11:28: in the [place] [address] morning. Medical Branch conjugated 2022-0 Yes 1g Insert 1 g U nivers estrogens 9-01 into ity of (PREMARIN) 11:28: vagina 2 [place] 0.625 31 (two) Medical mg/gram times per Branch vaginal week. cream cycloSPORIN 2022-0 Yes 1[drp] Place 1 U nivers E 9-01 Drop in ity of (RESTASIS) 11:28: both eyes [place] 0.05 % 31 every 12 Medical drops (twelve) Branch hours. OXcarbazepi 2022-0 Yes 150mg Take 150 U nivers ne 150 mg 9-01 mg by ity of tablet 11:28: mouth in [place] [address] the Medical morning Branch and 150 mg in the evening. Milnacipran 2022-0 Yes 100mg Take 100 U nivers 100 mg Tab 9-01 mg by ity of 11:28: mouth 2 [place] [address] (two) Medical times [place] daily. aspirin 81 2022-0 Yes 81mg Take 81 mg U nivers mg EC 9-01 by mouth ity of tablet 11:28: in the [place] [address] morning. Medical Branch conjugated 2022-0 Yes 1g Insert 1 g U nivers estrogens 9-01 into ity of (PREMARIN) 11:28: vagina 2 [place] 0.625 31 (two) Medical mg/gram times per Branch vaginal week. cream cycloSPORIN 2022-0 Yes 1[drp] Place 1 U nivers E 9-01 Drop in ity of (RESTASIS) 11:28: both eyes [place] 0.05 % 31 every 12 Medical drops (twelve) Branch hours. OXcarbazepi 2022-0 Yes 150mg Take 150 U nivers ne 150 mg 9-01 mg by ity of tablet 11:28: mouth in [place] [address] the Medical morning Branch and 150 mg in the evening. Milnacipran 2022-0 Yes 100mg Take 100 U nivers 100 mg Tab 9-01 mg by ity of 11:28: mouth 2 [place] [address] (two) Medical times Branch daily. aspirin 81 2021-0 Yes 81mg Take 81 mg U nivers mg EC 9-01 by mouth ity of tablet 11:28: in the [place] [address] morning. Medical Branch conjugated 2021-0 Yes 1g Insert 1 g U nivers estrogens 9-01 into ity of (PREMARIN) 11:28: vagina 2 [place] 0.625 31 (two) Medical mg/gram times per Branch vaginal week. cream cycloSPORIN 2021-0 Yes 1[drp] Place 1 U nivers E 9-01 Drop in ity of (RESTASIS) 11:28: both eyes [place] 0.05 % 31 every 12 Medical drops (twelve) Branch hours. OXcarbazepi 2021-0 Yes 150mg Take 150 U nivers ne 150 mg 9-01 mg by ity of tablet 11:28: mouth in [place] [address] the Medical morning Branch and 150 mg in the evening. Milnacipran 2022-0 Yes 100mg Take 100 U nivers 100 mg Tab 9-01 mg by ity of 11:28: mouth 2 [place] [address] (two) Medical times Branch daily. Milnacipran 2022-0 Yes 100mg Take 100 U nivers 100 mg Tab 9-01 mg by ity of 11:28: mouth 2 [place] [address] (two) Medical times Branch daily. Milnacipran 2022-0 Yes 100mg Take 100 U nivers 100 mg Tab 9-01 mg by ity of 11:28: mouth 2 [place] [address] (two) Medical times Branch daily. Milnacipran 2022-0 Yes 100mg Take 100 U nivers 100 mg Tab 9-01 mg by ity of 11:28: mouth 2 [place] [address] (two) Medical times Branch daily. Milnacipran 2022-0 Yes 100mg Take 100 U nivers 100 mg Tab 9-01 mg by ity of 11:28: mouth 2 [place] [address] (two) Medical times Branch daily. Milnacipran 2022-0 Yes 100mg Take 100 U nivers 100 mg Tab 9-01 mg by ity of 11:28: mouth 2 [place] [address] (two) Medical times Branch daily. Milnacipran 2022-0 Yes 100mg Take 100 U nivers 100 mg Tab 9-01 mg by ity of 11:28: mouth 2 [place] [address] (two) Medical times Branch daily. Milnacipran 2022-0 Yes 100mg Take 100 U nivers 100 mg Tab 9-01 mg by ity of 11:28: mouth 2 [place] [address] (two) Medical times Branch daily. Milnacipran 2022-0 Yes 100mg Take 100 U nivers 100 mg Tab 9-01 mg by ity of 11:28: mouth 2 [place] [address] (two) Medical times Branch daily. Milnacipran 2022-0 Yes 100mg Take 100 U nivers 100 mg Tab 9-01 mg by ity of 11:28: mouth 2 [place] [address] (two) Medical times Branch daily. Milnacipran 2022-0 Yes 100mg Take 100 U nivers 100 mg Tab 9-01 mg by ity of 11:28: mouth 2 [place] [address] (two) Medical times Branch daily. Milnacipran 2022-0 Yes 100mg Take 100 U nivers 100 mg Tab 9-01 mg by ity of 11:28: mouth 2 [place] [address] (two) Medical times Branch daily. Milnacipran 2022-0 Yes 100mg Take 100 U nivers 100 mg Tab 9-01 mg by ity of 11:28: mouth 2 [place] [address] (two) Medical times Branch daily. Milnacipran 2022-0 Yes 100mg Take 100 U nivers 100 mg Tab 9-01 mg by ity of 11:28: mouth 2 [place] [address] (two) Medical times Branch daily. Milnacipran 2022-0 Yes 100mg Take 100 [facility] nivers 100 mg Tab 9-01 mg by ity of 11:28: mouth 2 [place] [address] (two) Medical times Branch daily. Milnacipran 2022-0 Yes 100mg Take 100 U nivers 100 mg Tab 9-01 mg by ity of 11:28: mouth 2 [place] [address] (two) Medical times Branch daily. Milnacipran 2022-0 Yes 100mg Take 100 U nivers 100 mg Tab 9-01 mg by ity of 11:28: mouth 2 [place] [address] (two) Medical times Branch daily. Milnacipran 2022-0 Yes 100mg Take 100 U nivers 100 mg Tab 9-01 mg by ity of 11:28: mouth 2 [place] [address] (two) Medical times Branch daily. Milnacipran 2022-0 Yes 100mg Take 100 U nivers 100 mg Tab 9-01 mg by ity of 11:28: mouth 2 [place] 31 (two) Medical times Branch daily. Milnacipran 2022-0 Yes 100mg Take 100 U nivers 100 mg Tab 9-01 mg by ity of 11:28: mouth 2 [place] [address] (two) Medical times Branch daily. Milnacipran 2022-0 Yes 100mg Take 100 U nivers 100 mg Tab 9-01 mg by ity of 11:28: mouth 2 [place] [address] (two) Medical times Branch daily. cycloSPORIN 2021-0 Yes 1[drp] Place 1 U nivers E 8-26 Drop in ity of (RESTASIS) 14:47: both eyes [place] 0.05 % 50 every 12 Medical drops (twelve) Branch hours. OXcarbazepi 2021-0 Yes 150mg Take 150 U nivers ne 150 mg 8-26 mg by ity of tablet 14:47: mouth in [place] 50 the Medical morning Branch and 150 mg in the evening. aspirin 81 2021-0 Yes 81mg Take 81 mg U nivers mg EC 8-26 by mouth ity of tablet 14:45: in the [place] 46 morning. Medical Branch conjugated 2021-0 Yes 1g Insert 1 g U nivers estrogens 8-26 into ity of (PREMARIN) 14:45: vagina 2 [place] 0.625 46 (two) Medical mg/gram times per Branch vaginal week. cream Milnacipran 2021-0 Yes 100mg Take 100 U nivers 100 mg Tab 8-26 mg by ity of 14:43: mouth 2 [place] 09 (two) Medical times Branch daily. Nitrofurant 2021-0 2022- No [id number] 100mg Take 1 [facility] oin&Nit. 05-31- capsule by ity of [place] 00:00: 04:59 mouth at [place] (MACROBID) 00 :00 bedtime Medica l 100 mg for 6 Branch capsule doses. 3 days prior to procedure and 3 days after Nitrofurant 2021-0 202- No [id number] 100mg Take 1 [facility] oin&Nit. 8-31 05-29 capsule by ity of [place] 00:00: 04:59 mouth at [place] (MACROBID) 00 :00 bedtime Medica l 100 mg for 6 Branch capsule doses. 3 days prior to procedure and 3 days after Nitrofurant 2021- No [id number] 100mg Take 1 [facility] oin&Nit. 05-31 capsule by ity of [place] 00:00: 04:59 mouth at [place] (MACROBID) 00 :00 bedtime Medica l 100 mg for 6 Branch capsule doses. 3 days prior to procedure and 3 days after Nitrofurant 2021- No [id number] 100mg Take 1 [facility] oin&Nit. 05-31 capsule by ity of [place] 00:00: 04:59 mouth at [place] (MACROBID) 00 :00 bedtime Medica l 100 mg for 6 Branch capsule doses. 3 days prior to procedure and 3 days after estradioL Yes [id number] Apply 1g [facility] (ESTRACE) 8-15 vaginally ity o f 0.01 % (0.1 00:00: at bedtime [place] mg/gram) 00 every Medical vaginal night for Branch cream 2 weeks and then apply 1g vaginally at bedtime 3 times per week ( dn/ ida) estradioL Yes [id number] Apply 1g [facility] (ESTRACE) 8-15 vaginally ity o f 0.01 % (0.1 00:00: at bedtime [place] mg/gram) 00 every Medical vaginal night for Branch cream 2 weeks and then apply 1g vaginally at bedtime 3 times per week ( dn iday) estradioL Yes [id number] Apply 1g [facility] (ESTRACE) 8-15 vaginally ity o f 0.01 % (0.1 00:00: at bedtime [place] mg/gram) 00 every Medical vaginal night for Branch cream 2 weeks and then apply 1g vaginally at bedtime 3 times per week ( dn iday) estradioL Yes [id number] Apply 1g [facility] (ESTRACE) 8-15 vaginally ity o f 0.01 % (0.1 00:00: at bedtime [place] mg/gram) 00 every Medical vaginal night for Branch cream 2 weeks and then apply 1g vaginally at bedtime 3 times per week ( ida) estradioL Yes [id number] Apply 1g [facility] (ESTRACE) 8-15 vaginally ity o f 0.01 % (0.1 00:00: at bedtime [place] mg/gram) 00 every Medical vaginal night for Branch cream 2 weeks and then apply 1g vaginally at bedtime 3 times per week ( ida) estradioL Yes [id number] Apply 1g [facility] (ESTRACE) 8-15 vaginally ity o f 0.01 % (0.1 00:00: at bedtime [place] mg/gram) 00 every Medical vaginal night for Branch cream 2 weeks and then apply 1g vaginally at bedtime 3 times per week ( ida) estradioL Yes [id number] Apply 1g [facility] (ESTRACE) 8-15 vaginally ity o f 0.01 % (0.1 00:00: at bedtime [place] mg/gram) 00 every Medical vaginal night for Branch cream 2 weeks and then apply 1g vaginally at bedtime 3 times per week ( ida) estradioL Yes [id number] Apply 1g [facility] (ESTRACE) 8-15 vaginally ity o f 0.01 % (0.1 00:00: at bedtime [place] mg/gram) 00 every Medical vaginal night for Branch cream 2 weeks and then apply 1g vaginally at bedtime 3 times per week ( ida) estradioL Yes [id number] Apply 1g [facility] (ESTRACE) 8-15 vaginally ity o f 0.01 % (0.1 00:00: at bedtime [place] mg/gram) 00 every Medical vaginal night for Branch cream 2 weeks and then apply 1g vaginally at bedtime 3 times per week ( ida) estradioL Yes [id number] Apply 1g [facility] (ESTRACE) 8-15 vaginally ity o f 0.01 % (0.1 00:00: at bedtime [place] mg/gram) 00 every Medical vaginal night for Branch cream 2 weeks and then apply 1g vaginally at bedtime 3 times per week ( ida) estradioL Yes [id number] Apply 1g [facility] (ESTRACE) 8-15 vaginally ity o f 0.01 % (0.1 00:00: at bedtime [place] mg/gram) 00 every Medical vaginal night for Branch cream 2 weeks and then apply 1g vaginally at bedtime 3 times per week ( ida) estradioL 2021-0 Yes [id number] Apply 1g [facility] (ESTRACE) 8-15 vaginally ity o f 0.01 % (0.1 00:00: at bedtime [place] mg/gram) 00 every Medical vaginal night for Branch cream 2 weeks and then apply 1g vaginally at bedtime 3 times per week ( dn ida) estradioL Yes [id number] Apply 1g [facility] (ESTRACE) 8-15 vaginally ity o f 0.01 % (0.1 00:00: at bedtime [place] mg/gram) 00 every Medical vaginal night for Branch cream 2 weeks and then apply 1g vaginally at bedtime 3 times per week ( ida) estradioL Yes [id number] Apply 1g [facility] (ESTRACE) 8-15 vaginally ity o f 0.01 % (0.1 00:00: at bedtime [place] mg/gram) 00 every Medical vaginal night for Branch cream 2 weeks and then apply 1g vaginally at bedtime 3 times per week ( ida) estradioL 0 Yes [id number] Apply 1g [facility] (ESTRACE) 8-15 vaginally ity o f 0.01 % (0.1 00:00: at bedtime [place] mg/gram) 00 every Medical vaginal night for Branch cream 2 weeks and then apply 1g vaginally at bedtime 3 times per week ( dn iday) estradioL Yes [id number] Apply 1g [facility] (ESTRACE) 8-15 vaginally ity o f 0.01 % (0.1 00:00: at bedtime [place] mg/gram) 00 every Medical vaginal night for Branch cream 2 weeks and then apply 1g vaginally at bedtime 3 times per week ( dn iday) estradioL Yes [id number] Apply 1g [facility] (ESTRACE) 8-15 vaginally ity o f 0.01 % (0.1 00:00: at bedtime [place] mg/gram) 00 every Medical vaginal night for Branch cream 2 weeks and then apply 1g vaginally at bedtime 3 times per week ( ida) estradioL Yes [id number] Apply 1g [facility] (ESTRACE) 8-15 vaginally ity o f 0.01 % (0.1 00:00: at bedtime [place] mg/gram) 00 every Medical vaginal night for Branch cream 2 weeks and then apply 1g vaginally at bedtime 3 times per week ( ida) estradioL Yes [id number] Apply 1g [facility] (ESTRACE) 8-15 vaginally ity o f 0.01 % (0.1 00:00: at bedtime [place] mg/gram) 00 every Medical vaginal night for Branch cream 2 weeks and then apply 1g vaginally at bedtime 3 times per week ( ida) estradioL Yes [id number] Apply 1g [facility] (ESTRACE) 8-15 vaginally ity o f 0.01 % (0.1 00:00: at bedtime [place] mg/gram) 00 every Medical vaginal night for Branch cream 2 weeks and then apply 1g vaginally at bedtime 3 times per week ( ida) estradioL Yes [id number] Apply 1g [facility] (ESTRACE) 8-15 vaginally ity o f 0.01 % (0.1 00:00: at bedtime [place] mg/gram) 00 every Medical vaginal night for Branch cream 2 weeks and then apply 1g vaginally at bedtime 3 times per week ( ida) estradioL 0 Yes [id number] Apply 1g [facility] (ESTRACE) 8-15 vaginally ity o f 0.01 % (0.1 00:00: at bedtime [place] mg/gram) 00 every Medical vaginal night for Branch cream 2 weeks and then apply 1g vaginally at bedtime 3 times per week ( dn ida) estradioL Yes [id number] Apply 1g [facility] (ESTRACE) 8-15 vaginally ity o f 0.01 % (0.1 00:00: at bedtime [place] mg/gram) 00 every Medical vaginal night for Branch cream 2 weeks and then apply 1g vaginally at bedtime 3 times per week ( ida) estradioL Yes [id number] Apply 1g [facility] (ESTRACE) 8-15 vaginally ity o f 0.01 % (0.1 00:00: at bedtime [place] mg/gram) 00 every Medical vaginal night for Branch cream 2 weeks and then apply 1g vaginally at bedtime 3 times per week ( ida) estradioL Yes [id number] Apply 1g [facility] (ESTRACE) 8-15 vaginally ity o f 0.01 % (0.1 00:00: at bedtime [place] mg/gram) 00 every Medical vaginal night for Branch cream 2 weeks and then apply 1g vaginally at bedtime 3 times per week ( ida) estradioL Yes [id number] Apply 1g [facility] (ESTRACE) 8-15 vaginally ity o f 0.01 % (0.1 00:00: at bedtime [place] mg/gram) 00 every Medical vaginal night for Branch cream 2 weeks and then apply 1g vaginally at bedtime 3 times per week ( ida) estradioL Yes [id number] Apply 1g [facility] (ESTRACE) 8-15 vaginally ity o f 0.01 % (0.1 00:00: at bedtime [place] mg/gram) 00 every Medical vaginal night for Branch cream 2 weeks and then apply 1g vaginally at bedtime 3 times per week ( ida) azelastine Yes [id number] 1{spray Use 1 [facility] 137 mcg 7-21 } [place] in ity of (0.1 %) 00:00: each [place] nasal spray 00 nostril in Me dical the morning and 1 [place] in the evening. Use in each nostril as directed azelastine Yes [id number] 1{spray Use 1 [facility] 137 mcg 7-21 } [place] in ity of (0.1 %) 00:00: each [place] nasal spray 00 nostril in [facility] the morning and 1 [place] in the evening. Use in each nostril as directed azelastine 2022-0 Yes [id number] 1{spray Use 1 [facility] 137 mcg 7-21 } [place] in ity of (0.1 %) 00:00: each [place] nasal spray 00 nostril in [facility] the Branch morning and 1 [place] in the evening. Use in each nostril as directed azelastine 2022-0 Yes [id number] 1{spray Use 1 [facility] 137 mcg 7-21 } [place] in ity of (0.1 %) 00:00: each [place] nasal spray 00 nostril in [place] the Branch morning and 1 [place] in the evening. Use in each nostril as directed azelastine 2022-0 Yes [id number] 1{spray Use 1 [facility] 137 mcg 7-21 } [place] in ity of (0.1 %) 00:00: each [place] nasal spray 00 nostril in [place] the Branch morning and 1 [place] in the evening. Use in each nostril as directed azelastine 2022-0 Yes [id number] 1{spray Use 1 [facility] 137 mcg 7-21 } [place] in ity of (0.1 %) 00:00: each [place] nasal spray 00 nostril in [place] the Branch morning and 1 [place] in the evening. Use in each nostril as directed azelastine 2022-0 Yes [id number] 1{spray Use 1 [facility] 137 mcg 7-21 } [place] in ity of (0.1 %) 00:00: each [place] nasal spray 00 nostril in [place] [facility] the Branch morning and 1 [place] in the evening. Use in each nostril as directed azelastine 2022-0 Yes [id number] 1{spray Use 1 [facility] 137 mcg 7-21 } [place] in ity of (0.1 %) 00:00: each [place] nasal spray 00 nostril in [place] [facility] the Branch morning and 1 [place] in the evening. Use in each nostril as directed azelastine 2022-0 Yes [id number] 1{spray Use 1 [facility] 137 mcg 7-21 } [place] in ity of (0.1 %) 00:00: each [place] nasal spray 00 nostril in [place] [facility] the Branch morning and 1 [place] in the evening. Use in each nostril as directed azelastine 2022-0 Yes [id number] 1{spray Use 1 [facility] 137 mcg 7-21 } [place] in ity of (0.1 %) 00:00: each [place] nasal spray 00 nostril in [facility] the Branch morning and 1 [place] in the evening. Use in each nostril as directed azelastine 2022-0 Yes [id number] 1{spray Use 1 [facility] 137 mcg 7-21 } [place] in ity of (0.1 %) 00:00: each [place] nasal spray 00 nostril in [facility] the Branch morning and 1 [place] in the evening. Use in each nostril as directed azelastine 2022-0 Yes [id number] 1{spray Use 1 [facility] 137 mcg 7-21 } [place] in ity of (0.1 %) 00:00: each [place] nasal spray 00 nostril in [place] [facility] the Branch morning and 1 [place] in the evening. Use in each nostril as directed azelastine 2022-0 Yes [id number] 1{spray Use 1 [facility] 137 mcg 7-21 } [place] in ity of (0.1 %) 00:00: each [place] nasal spray 00 nostril in [place] [facility] the Branch morning and 1 [place] in the evening. Use in each nostril as directed azelastine 2022-0 Yes [id number] 1{spray Use 1 [facility] 137 mcg 7-21 } [place] in ity of (0.1 %) 00:00: each [place] nasal spray 00 nostril in [place] [facility] the Branch morning and 1 [place] in the evening. Use in each nostril as directed azelastine 2022-0 Yes [id number] 1{spray Use 1 [facility] 137 mcg 7-21 } [place] in ity of (0.1 %) 00:00: each [place] nasal spray 00 nostril in [place] [facility] the Branch morning and 1 [place] in the evening. Use in each nostril as directed azelastine 2022-0 Yes [id number] 1{spray Use 1 [facility] 137 mcg 7-21 } [place] in ity of (0.1 %) 00:00: each [place] nasal spray 00 nostril in [place] [facility] the Branch morning and 1 [place] in the evening. Use in each nostril as directed azelastine 2022-0 Yes [id number] 1{spray Use 1 [facility] 137 mcg 7-21 } [place] in ity of (0.1 %) 00:00: each [place] nasal spray 00 nostril in [place] [facility] the Branch morning and 1 [place] in the evening. Use in each nostril as directed azelastine 2022-0 Yes [id number] 1{spray Use 1 [facility] 137 mcg 7-21 } [place] in ity of (0.1 %) 00:00: each [place] nasal spray 00 nostril in [place] [facility] the Branch morning and 1 [place] in the evening. Use in each nostril as directed azelastine 2022-0 Yes [id number] 1{spray Use 1 [facility] 137 mcg 7-21 } [place] in ity of (0.1 %) 00:00: each [place] nasal spray 00 nostril in [place] [facility] the Branch morning and 1 [place] in the evening. Use in each nostril as directed azelastine 2-0 Yes [id number] 1{spray Use 1 [facility] 137 mcg 7-21 } [place] in ity of (0.1 %) 00:00: each [place] nasal spray 00 nostril in [place] [facility] the Branch morning and 1 [place] in the evening. Use in each nostril as directed azelastine 2-0 Yes [id number] 1{spray Use 1 [facility] 137 mcg 7-21 } [place] in ity of (0.1 %) 00:00: each [place] nasal spray 00 nostril in [facility] the Branch morning and 1 [place] in the evening. Use in each nostril as directed azelastine 2022-0 Yes [id number] 1{spray Use 1 [facility] 137 mcg 7-21 } [place] in ity of (0.1 %) 00:00: each [place] nasal spray 00 nostril in [place] [facility] the Branch morning and 1 [place] in the evening. Use in each nostril as directed azelastine 2022-0 Yes [id number] 1{spray Use 1 [facility] 137 mcg 7-21 } [place] in ity of (0.1 %) 00:00: each [place] nasal spray 00 nostril in [place] [facility] the Branch morning and 1 [place] in the evening. Use in each nostril as directed azelastine 2022-0 Yes [id number] 1{spray Use 1 [facility] 137 mcg 7-21 } [place] in ity of (0.1 %) 00:00: each [place] nasal spray 00 nostril in [facility] the Branch morning and 1 [place] in the evening. Use in each nostril as directed azelastine 2-0 Yes [id number] 1{spray Use 1 [facility] 137 mcg 7-21 } [place] in ity of (0.1 %) 00:00: each [place] [facility] and 1 [place] in the evening. Use in each nostril as directed azelastine 2-0 Yes [id number] 1{spray Use 1 [facility] 137 mcg 7-21 } [place] in ity of (0.1 %) 00:00: each [place] nasal spray 00 nostril in [facility] the Branch morning and 1 [place] in the evening. Use in each nostril as directed azelastine 2021-0 Yes [id number] 1{spray Use 1 [facility] 137 mcg 7-21 } [place] in ity of (0.1 %) 00:00: each [place] nasal spray 00 nostril in [facility] the [place] morning and 1 [place] in the evening. Use in each nostril as directed fenofibrate 2021-0 Yes [id number] 54mg Take 1 [facility] 54 mg 7-18 tablet by ity of tablet 00:00: mouth in [place] the Medical morning. Branch lovastatin 2021-0 Yes [id number] 40mg Take 1 [facility] 40 mg 7-18 tablet by ity of tablet 00:00: mouth at [place] [address] bedtime. Medical Branch fenofibrate 2-0 Yes [id number] 54mg Take 1 [facility] 54 mg 7-18 tablet by ity of tablet 00:00: mouth in [place] the Medical morning. Branch lovastatin 2-0 Yes [id number] 40mg Take 1 [facility] 40 mg 7-18 tablet by ity of tablet 00:00: mouth at [place] [address] bedtime. Medical Branch fenofibrate 2-0 Yes [id number] 54mg Take 1 [facility] 54 mg 7-18 tablet by ity of tablet 00:00: mouth in [place] the Medical morning. Branch lovastatin 2-0 Yes [id number] 40mg Take 1 [facility] 40 mg 7-18 tablet by ity of tablet 00:00: mouth at [place] [address] bedtime. Medical Branch fenofibrate 2021-0 Yes [id number] 54mg Take 1 [facility] 54 mg 7-18 tablet by ity of tablet 00:00: mouth in [place] the Medical morning. Branch lovastatin 2021-0 Yes [id number] 40mg Take 1 [facility] 40 mg 7-18 tablet by ity of tablet 00:00: mouth at [place] [address] bedtime. Medical Branch fenofibrate 2021-0 Yes [id number] 54mg Take 1 [facility] 54 mg 7-18 tablet by ity of tablet 00:00: mouth in [place] the Medical morning. Branch lovastatin 2021-0 Yes [id number] 40mg Take 1 [facility] 40 mg 7-18 tablet by ity of tablet 00:00: mouth at [place] [address] bedtime. Medical Branch fenofibrate 2021-0 Yes [id number] 54mg Take 1 [facility] 54 mg 7-18 tablet by ity of tablet 00:00: mouth in [place] the Medical morning. Branch lovastatin 2021-0 Yes [id number] 40mg Take 1 [facility] 40 mg 7-18 tablet by ity of tablet 00:00: mouth at [place] [address] bedtime. Medical Branch fenofibrate 2021-0 Yes [id number] 54mg Take 1 [facility] 54 mg 7-18 tablet by ity of tablet 00:00: mouth in [place] the Medical morning. Branch lovastatin 2021-0 Yes [id number] 40mg Take 1 [facility] 40 mg 7-18 tablet by ity of tablet 00:00: mouth at [place] [address] bedtime. Medical Branch fenofibrate 2021-0 Yes [id number] 54mg Take 1 [facility] 54 mg 7-18 tablet by ity of tablet 00:00: mouth in [place] the Medical morning. Branch lovastatin 2021-0 Yes [id number] 40mg Take 1 [facility] 40 mg 7-18 tablet by ity of tablet 00:00: mouth at [place] [address] bedtime. Medical Branch fenofibrate 2021-0 Yes [id number] 54mg Take 1 [facility] 54 mg 7-18 tablet by ity of tablet 00:00: mouth in [place] the Medical morning. Branch lovastatin 2-0 Yes [id number] 40mg Take 1 [facility] 40 mg 7-18 tablet by ity of tablet 00:00: mouth at [place] [address] bedtime. Medical Branch fenofibrate 2021-0 Yes [id number] 54mg Take 1 [facility] 54 mg 7-18 tablet by ity of tablet 00:00: mouth in [place] the Medical morning. Branch lovastatin 2021-0 Yes [id number] 40mg Take 1 [facility] 40 mg 7-18 tablet by ity of tablet 00:00: mouth at [place] [address] bedtime. Medical Branch fenofibrate 2021-0 Yes [id number] 54mg Take 1 [facility] 54 mg 7-18 tablet by ity of tablet 00:00: mouth in [place] the Medical morning. Branch lovastatin 2021-0 Yes [id number] 40mg Take 1 [facility] 40 mg 7-18 tablet by ity of tablet 00:00: mouth at [place] 00 bedtime. Medical Branch fenofibrate 2021-0 Yes [id number] 54mg Take 1 [facility] 54 mg 7-18 tablet by ity of tablet 00:00: mouth in [place] the Medical morning. Branch lovastatin 2021-0 Yes [id number] 40mg Take 1 [facility] 40 mg 7-18 tablet by ity of tablet 00:00: mouth at [place] [address] bedtime. Medical Branch fenofibrate 2021-0 Yes [id number] 54mg Take 1 [facility] 54 mg 7-18 tablet by ity of tablet 00:00: mouth in [place] the Medical morning. Branch lovastatin 2021-0 Yes [id number] 40mg Take 1 [facility] 40 mg 7-18 tablet by ity of tablet 00:00: mouth at [place] [address] bedtime. Medical Branch fenofibrate 2021-0 Yes [id number] 54mg Take 1 [facility] 54 mg 7-18 tablet by ity of tablet 00:00: mouth in [place] the Medical morning. Branch lovastatin 2021-0 Yes [id number] 40mg Take 1 [facility] 40 mg 7-18 tablet by ity of tablet 00:00: mouth at [place] [address] bedtime. Medical Branch fenofibrate 2021-0 Yes [id number] 54mg Take 1 [facility] 54 mg 7-18 tablet by ity of tablet 00:00: mouth in [place] the Medical morning. Branch lovastatin 2021-0 Yes [id number] 40mg Take 1 [facility] 40 mg 7-18 tablet by ity of tablet 00:00: mouth at [place] [address] bedtime. Medical Branch fenofibrate 2021-0 Yes [id number] 54mg Take 1 [facility] 54 mg 7-18 tablet by ity of tablet 00:00: mouth in [place] 00 the Medical morning. Branch fenofibrate 2-0 Yes [id number] 54mg Take 1 [facility] 54 mg 7-18 tablet by ity of tablet 00:00: mouth in [place] the Medical morning. Branch fenofibrate 2-0 Yes [id number] 54mg Take 1 [facility] 54 mg 7-18 tablet by ity of tablet 00:00: mouth in [place] the Medical morning. Branch fenofibrate 2-0 Yes [id number] 54mg Take 1 [facility] 54 mg 7-18 tablet by ity of tablet 00:00: mouth in [place] the Medical morning. Branch fenofibrate 2-0 Yes [id number] 54mg Take 1 [facility] 54 mg 7-18 tablet by ity of tablet 00:00: mouth in [place] the Medical morning. Branch fenofibrate 2-0 Yes [id number] 54mg Take 1 [facility] 54 mg 7-18 tablet by ity of tablet 00:00: mouth in [place] the Medical morning. Branch fenofibrate 2-0 Yes [id number] 54mg Take 1 [facility] 54 mg 7-18 tablet by ity of tablet 00:00: mouth in [place] the Medical morning. Branch fenofibrate 2-0 Yes [id number] 54mg Take 1 [facility] 54 mg 7-18 tablet by ity of tablet 00:00: mouth in [place] the Medical morning. Branch fenofibrate 2-0 Yes [id number] 54mg Take 1 [facility] 54 mg 7-18 tablet by ity of tablet 00:00: mouth in [place] the Medical morning. Branch fenofibrate 2-0 Yes [id number] 54mg Take 1 [facility] 54 mg 7-18 tablet by ity of tablet 00:00: mouth in [place] the Medical morning. Branch fenofibrate 2-0 Yes [id number] 54mg Take 1 [facility] 54 mg 7-18 tablet by ity of tablet 00:00: mouth in [place] the Medical morning. Branch fenofibrate 2-0 Yes [id number] 54mg Take 1 [facility] 54 mg 7-18 tablet by ity of tablet 00:00: mouth in [place] 00 the Medical morning. Branch lovastatin 2-0 2022- No [id number] 40mg Take 1 [facility] 40 mg 7-18 10-31 tablet by ity of tablet 00:00: 00:00 mouth at [place] 00 :00 bedtime. Medical Branch amLODIPine 2022-0 Yes [id number] 5mg Take 1 U nivers 5 mg tablet 7-06 tablet by ity of 00:00: mouth [place] 00 daily. Medical Branch amLODIPine 2022-0 Yes [id number] 5mg Take 1 U nivers 5 mg tablet 7-06 tablet by ity of 00:00: mouth [place] 00 daily. Medical Branch amLODIPine 2022-0 Yes [id number] 5mg Take 1 U nivers 5 mg tablet 7-06 tablet by ity of 00:00: mouth [place] 00 daily. Medical Branch amLODIPine 2022-0 Yes [id number] 5mg Take 1 U nivers 5 mg tablet 7-06 tablet by ity of 00:00: mouth [place] 00 daily. Medical Branch amLODIPine 2022-0 Yes [id number] 5mg Take 1 U nivers 5 mg tablet 7-06 tablet by ity of 00:00: mouth [place] 00 daily. Medical Branch amLODIPine 2022-0 Yes [id number] 5mg Take 1 U nivers 5 mg tablet 7-06 tablet by ity of 00:00: mouth [place] 00 daily. Medical Branch amLODIPine 2022-0 Yes [id number] 5mg Take 1 U nivers 5 mg tablet 7-06 tablet by ity of 00:00: mouth [place] 00 daily. Medical Branch amLODIPine 2022-0 Yes [id number] 5mg Take 1 U nivers 5 mg tablet 7-06 tablet by ity of 00:00: mouth [place] 00 daily. Medical Branch amLODIPine 2022-0 Yes [id number] 5mg Take 1 U nivers 5 mg tablet 7-06 tablet by ity of 00:00: mouth [place] 00 daily. Medical Branch amLODIPine 2022-0 Yes [id number] 5mg Take 1 U nivers 5 mg tablet 7-06 tablet by ity of 00:00: mouth [place] 00 daily. Medical Branch amLODIPine 2022-0 Yes [id number] 5mg Take 1 U nivers 5 mg tablet 7-06 tablet by ity of 00:00: mouth [place] 00 daily. Medical Branch amLODIPine 2022-0 Yes [id number] 5mg Take 1 U nivers 5 mg tablet 7-06 tablet by ity of 00:00: mouth [place] 00 daily. Medical Branch amLODIPine 2022-0 Yes [id number] 5mg Take 1 U nivers 5 mg tablet 7-06 tablet by ity of 00:00: mouth [place] 00 daily. Medical Branch amLODIPine 2-0 Yes [id number] 5mg Take 1 U nivers 5 mg tablet 7-06 tablet by ity of 00:00: mouth [place] 00 daily. Medical Branch amLODIPine 2-0 Yes [id number] 5mg Take 1 U nivers 5 mg tablet 7-06 tablet by ity of 00:00: mouth [place] 00 daily. Medical Branch amLODIPine 2-0 Yes [id number] 5mg Take 1 U nivers 5 mg tablet 7-06 tablet by ity of 00:00: mouth [place] 00 daily. Medical Branch amLODIPine 2-0 Yes [id number] 5mg Take 1 [facility] nivers 5 mg tablet 7-06 tablet by ity of 00:00: mouth [place] 00 daily. Medical Branch amLODIPine 2-0 Yes [id number] 5mg Take 1 U nivers 5 mg tablet 7-06 tablet by ity of 00:00: mouth [place] 00 daily. [facility] amLODIPine 2-0 Yes [id number] 5mg Take 1 [facility] nivers 5 mg tablet 7-06 tablet by ity of 00:00: mouth [place] 00 daily. [facility] amLODIPine 2-0 Yes [id number] 5mg Take 1 [facility] 5 mg tablet 7-06 tablet by ity of 00:00: mouth [place] 00 daily. [facility] amLODIPine 2-0 Yes [id number] 5mg Take 1 [facility] 5 mg tablet 7-06 tablet by ity of 00:00: mouth [place] 00 daily. [facility] amLODIPine 2-0 Yes [id number] 5mg Take 1 [facility] n[facility] 5 mg tablet 7-06 tablet by ity of 00:00: mouth [place] 00 daily. [facility] amLODIPine 2022-0 Yes [id number] 5mg Take 1 [facility] n[facility] 5 mg tablet 7-06 tablet by ity of 00:00: mouth [place] 00 daily. [facility] amLODIPine 2022-0 Yes [id number] 5mg Take 1 [facility] 5 mg tablet 7-06 tablet by ity of 00:00: mouth [place] 00 daily. [facility] amLODIPine 2022-0 Yes [id number] 5mg Take 1 [facility] 5 mg tablet 7-06 tablet by ity of 00:00: mouth [place] 00 daily. [facility] Branch amLODIPine 2022-0 Yes [id number] 5mg Take 1 [facility] 5 mg tablet 7-06 tablet by ity of 00:00: mouth [place] 00 daily. [facility] amLODIPine 2021-0 Yes [id number] 5mg Take 1 [facility] nivers 5 mg tablet 7-06 tablet by ity of 00:00: mouth [place] 00 daily. [facility] levothyroxi 2021-0 Yes [id number] TAKE ONE [facility] ne 6-29 TABLET BY ity of (SYNTHROID) 00:00: MOUTH [place] 50 mcg 00 EVERY DAY Medical tablet IN THE [place] MORNING levothyroxi 2021-0 Yes [id number] TAKE ONE [facility] ne 6-29 TABLET BY ity of (SYNTHROID) 00:00: MOUTH [place] 50 mcg 00 EVERY DAY Medical tablet IN THE [place] MORNING levothyroxi 2021-0 Yes [id number] TAKE ONE [facility] ne 6-29 TABLET BY ity of (SYNTHROID) 00:00: MOUTH [place] 50 mcg 00 EVERY DAY Medical tablet IN THE [place] MORNING levothyroxi 2021-0 Yes [id number] TAKE ONE [facility] ne 6-29 TABLET BY ity of (SYNTHROID) 00:00: MOUTH [place] 50 mcg 00 EVERY DAY Medical tablet IN THE [place] MORNING levothyroxi 2021-0 Yes [id number] TAKE ONE [facility] ne 6-29 TABLET BY ity of (SYNTHROID) 00:00: MOUTH [place] 50 mcg 00 EVERY DAY Medical tablet IN THE [place] MORNING levothyroxi 2021-0 Yes [id number] TAKE ONE [facility] ne 6-29 TABLET BY ity of (SYNTHROID) 00:00: MOUTH [place] 50 mcg 00 EVERY DAY Medical tablet IN THE [place] MORNING levothyroxi 2021-0 Yes [id number] TAKE ONE [facility] ne 6-29 TABLET BY ity of (SYNTHROID) 00:00: MOUTH [place] 50 mcg 00 EVERY DAY Medical tablet IN THE [place] MORNING levothyroxi 2021-0 Yes [id number] TAKE ONE [facility] ne 6-29 TABLET BY ity of (SYNTHROID) 00:00: MOUTH [place] 50 mcg 00 EVERY DAY Medical tablet IN THE [place] MORNING levothyroxi 2021-0 Yes [id number] TAKE ONE [facility] ne 6-29 TABLET BY ity of (SYNTHROID) 00:00: MOUTH [place] 50 mcg 00 EVERY DAY Medical tablet IN THE [place] MORNING levothyroxi 2021-0 Yes [id number] TAKE ONE [facility] ne 6-29 TABLET BY ity of (SYNTHROID) 00:00: MOUTH [place] 50 mcg 00 EVERY DAY Medical tablet IN THE Branch MORNING levothyroxi 0 Yes [id number] TAKE ONE [facility] ne 6-29 TABLET BY ity of (SYNTHROID) 00:00: MOUTH [place] 50 mcg 00 EVERY DAY Medical tablet IN THE Branch MORNING levothyroxi 0 Yes [id number] TAKE ONE [facility] ne 6-29 TABLET BY ity of (SYNTHROID) 00:00: MOUTH [place] 50 mcg 00 EVERY DAY Medical tablet IN THE Branch MORNING levothyroxi 0 Yes [id number] TAKE ONE [facility] ne 6-29 TABLET BY ity of (SYNTHROID) 00:00: MOUTH [place] 50 mcg 00 EVERY DAY Medical tablet IN THE Branch MORNING levothyroxi Yes [id number] TAKE ONE [facility] ne 6-29 TABLET BY ity of (SYNTHROID) 00:00: MOUTH [place] 50 mcg 00 EVERY DAY Medical tablet IN THE [place] MORNING levothyroxi 0 2021- No [id number] TAKE ONE [facility] ne 6-29 10-25 TABLET BY ity of (SYNTHROID) 00:00: 00:00 MOUTH [place] 50 mcg 00 :00 EVERY DAY Medical tablet IN THE Branch MORNING Diflupredna 0 Yes INSTILL 1 [facility] nivers te 0.05 % 6-21 DROP TO ity of 00:00: THE LEFT [place] 00 EYE 4 Medical TIMES Branch DAILY atropine 1 0 Yes INSTILL 1 [facility] % 6-21 DROP TO ity of ophthalmic 00:00: THE LEFT [place] drops 00 EYE 4 Medical TIMES Branch DAILY START 04/03/2022* * BESIVANCE 0 Yes INSTILL 1 [facility] vers 0.6 % drops 6-21 DROP TO ity o f 00:00: THE LEFT [place] 00 EYE 2 Medical TIMES A Branch DAY START 04/03/2022* * Diflupredna 2021-0 Yes INSTILL 1 [facility] nivers te 0.05 % 6-21 DROP TO ity of 00:00: THE LEFT [place] 00 EYE 4 Medical TIMES Branch DAILY atropine 1 2021-0 Yes INSTILL 1 [facility] [place] % 6-21 DROP TO ity of ophthalmic 00:00: THE LEFT [place] drops 00 EYE 4 Medical TIMES Branch DAILY START 04/03/2022* * BESIVANCE 2021-0 Yes INSTILL 1 [facility] vers 0.6 % drops 6-21 DROP TO ity o f 00:00: THE LEFT [place] 00 EYE 2 Medical TIMES A Branch DAY START 04/03/2022* * Diflupredna 2021-0 Yes INSTILL 1 [facility] nivers te 0.05 % 6-21 DROP TO ity of 00:00: THE LEFT [place] 00 EYE 4 Medical TIMES Branch DAILY atropine 1 2021-0 Yes INSTILL 1 [facility] [place] % 6-21 DROP TO ity of ophthalmic 00:00: THE LEFT [place] drops 00 EYE 4 Medical TIMES Branch DAILY START 04/03/2022* * BESIVANCE 2021-0 Yes INSTILL 1 [facility] vers 0.6 % drops 6-21 DROP TO ity o f 00:00: THE LEFT [place] 00 EYE 2 Medical TIMES A Branch DAY START 04/03/2022* * Diflupredna 2021-0 Yes INSTILL 1 [facility] nivers te 0.05 % 6-21 DROP TO ity of 00:00: THE LEFT [place] 00 EYE 4 Medical TIMES Branch DAILY atropine 1 2021-0 Yes INSTILL 1 [facility] [place] % 6-21 DROP TO ity of ophthalmic 00:00: THE LEFT [place] drops 00 EYE 4 Medical TIMES Branch DAILY START 04/03/2022* * BESIVANCE 2021-0 Yes INSTILL 1 [facility] vers 0.6 % drops 6-21 DROP TO ity o f 00:00: THE LEFT [place] 00 EYE 2 Medical TIMES A Branch DAY START 04/03/2022* * Diflupredna 2021-0 Yes INSTILL 1 [facility] nivers te 0.05 % 6-21 DROP TO ity of 00:00: THE LEFT [place] 00 EYE 4 Medical TIMES Branch DAILY atropine 1 2021-0 Yes INSTILL 1 [facility] [place] % 6-21 DROP TO ity of ophthalmic 00:00: THE LEFT [place] drops 00 EYE 4 Medical TIMES Branch DAILY START 04/03/2022* * BESIVANCE 2021-0 Yes INSTILL 1 [facility] vers 0.6 % drops 6-21 DROP TO ity o f 00:00: THE LEFT [place] 00 EYE 2 Medical TIMES A Branch DAY START 04/03/2022* * Diflupredna 2021-0 Yes INSTILL 1 [facility] nivers te 0.05 % 6-21 DROP TO ity of 00:00: THE LEFT [place] 00 EYE 4 Medical TIMES Branch DAILY atropine 1 2021-0 Yes INSTILL 1 [facility] [place] % 6-21 DROP TO ity of ophthalmic 00:00: THE LEFT [place] drops 00 EYE 4 Medical TIMES Branch DAILY START 04/03/2022* * BESIVANCE 2021-0 Yes INSTILL 1 [facility] vers 0.6 % drops 6-21 DROP TO ity o f 00:00: THE LEFT [place] 00 EYE 2 Medical TIMES A Branch DAY START 04/03/2022* * Diflupredna 0 Yes INSTILL 1 [facility] nivers te 0.05 % 6-21 DROP TO ity of 00:00: THE LEFT [place] 00 EYE 4 Medical TIMES Branch DAILY atropine 1 2021-0 Yes INSTILL 1 [facility] [place] % 6-21 DROP TO ity of ophthalmic 00:00: THE LEFT [place] drops 00 EYE 4 Medical TIMES Branch DAILY START 04/03/2022* * BESIVANCE 2021-0 Yes INSTILL 1 [facility] vers 0.6 % drops 6-21 DROP TO ity o f 00:00: THE LEFT [place] 00 EYE 2 Medical TIMES A Branch DAY START 04/03/2022* * Diflupredna 2021-0 Yes INSTILL 1 [facility] nivers te 0.05 % 6-21 DROP TO ity of 00:00: THE LEFT [place] 00 EYE 4 Medical TIMES Branch DAILY atropine 1 2021-0 Yes INSTILL 1 [facility] [place] % 6-21 DROP TO ity of ophthalmic 00:00: THE LEFT [place] drops 00 EYE 4 Medical TIMES Branch DAILY START 04/03/2022* * BESIVANCE 2021-0 Yes INSTILL 1 [facility] vers 0.6 % drops 6-21 DROP TO ity o f 00:00: THE LEFT [place] 00 EYE 2 Medical TIMES A Branch DAY START 04/03/2022* * Diflupredna 2021-0 Yes INSTILL 1 [facility] nivers te 0.05 % 6-21 DROP TO ity of 00:00: THE LEFT [place] 00 EYE 4 Medical TIMES Branch DAILY atropine 1 2021-0 Yes INSTILL 1 [facility] [place] % 6-21 DROP TO ity of ophthalmic 00:00: THE LEFT [place] drops 00 EYE 4 Medical TIMES Branch DAILY START 04/03/2022* * BESIVANCE 2021-0 Yes INSTILL 1 [facility] vers 0.6 % drops 6-21 DROP TO ity o f 00:00: THE LEFT [place] 00 EYE 2 Medical TIMES A Branch DAY START 04/03/2022* * Diflupredna 2021-0 Yes INSTILL 1 [facility] nivers te 0.05 % 6-21 DROP TO ity of 00:00: THE LEFT [place] 00 EYE 4 Medical TIMES Branch DAILY atropine 1 2021-0 Yes INSTILL 1 [facility] [place] % 6-21 DROP TO ity of ophthalmic 00:00: THE LEFT [place] drops 00 EYE 4 Medical TIMES Branch DAILY START 04/03/2022* * BESIVANCE 2021-0 Yes INSTILL 1 [facility] vers 0.6 % drops 6-21 DROP TO ity o f 00:00: THE LEFT [place] 00 EYE 2 Medical TIMES A Branch DAY START 04/03/2022* * Diflupredna 2021-0 Yes INSTILL 1 [facility] nivers te 0.05 % 6-21 DROP TO ity of 00:00: THE LEFT [place] 00 EYE 4 Medical TIMES Branch DAILY atropine 1 2021-0 Yes INSTILL 1 [facility] [place] % 6-21 DROP TO ity of ophthalmic 00:00: THE LEFT [place] drops 00 EYE 4 Medical TIMES Branch DAILY START 04/03/2022* * BESIVANCE 2021-0 Yes INSTILL 1 [facility] vers 0.6 % drops 6-21 DROP TO ity o f 00:00: THE LEFT [place] 00 EYE 2 Medical TIMES A Branch DAY START 04/03/2022* * Diflupredna 2021-0 Yes INSTILL 1 [facility] nivers te 0.05 % 6-21 DROP TO ity of 00:00: THE LEFT [place] 00 EYE 4 Medical TIMES Branch DAILY atropine 1 2021-0 Yes INSTILL 1 [place] % 6-21 DROP TO ity of ophthalmic 00:00: THE LEFT [place] drops 00 EYE 4 Medical TIMES Branch DAILY START 04/03/2022* * BESIVANCE 2021-0 Yes INSTILL 1 [facility] vers 0.6 % drops 6-21 DROP TO ity o f 00:00: THE LEFT [place] 00 EYE 2 Medical TIMES A Branch DAY START 04/03/2022* * Diflupredna 2021-0 Yes INSTILL 1 [facility] nivers te 0.05 % 6-21 DROP TO ity of 00:00: THE LEFT [place] 00 EYE 4 Medical TIMES Branch DAILY atropine 1 2021-0 Yes INSTILL 1 [place] % 6-21 DROP TO ity of ophthalmic 00:00: THE LEFT [place] drops 00 EYE 4 Medical TIMES Branch DAILY START 04/03/2022* * BESIVANCE 2021-0 Yes INSTILL 1 [facility] vers 0.6 % drops 6-21 DROP TO ity o f 00:00: THE LEFT [place] 00 EYE 2 Medical TIMES A Branch DAY START 04/03/2022* * Diflupredna 2021-0 Yes INSTILL 1 [facility] nivers te 0.05 % 6-21 DROP TO ity of 00:00: THE LEFT [place] 00 EYE 4 Medical TIMES Branch DAILY atropine 1 2021-0 Yes INSTILL 1 [place] % 6-21 DROP TO ity of ophthalmic 00:00: THE LEFT [place] drops 00 EYE 4 Medical TIMES Branch DAILY START 04/03/2022* * BESIVANCE 2021-0 Yes INSTILL 1 [facility] vers 0.6 % drops 6-21 DROP TO ity o f 00:00: THE LEFT [place] 00 EYE 2 Medical TIMES A Branch DAY START 04/03/2022* * Diflupredna 2021-0 Yes INSTILL 1 [facility] nivers te 0.05 % 6-21 DROP TO ity of 00:00: THE LEFT [place] 00 EYE 4 Medical TIMES Branch DAILY atropine 1 2021-0 Yes INSTILL 1 [place] % 6-21 DROP TO ity of ophthalmic 00:00: THE LEFT [place] drops 00 EYE 4 Medical TIMES Branch DAILY START 04/03/2022* * BESIVANCE 2021-0 Yes INSTILL 1 [facility] vers 0.6 % drops 6-21 DROP TO ity o f 00:00: THE LEFT [place] 00 EYE 2 Medical TIMES A Branch DAY START 04/03/2022* * Diflupredna 2021-0 Yes INSTILL 1 [facility] nivers te 0.05 % 6-21 DROP TO ity of 00:00: THE LEFT [place] 00 EYE 4 Medical TIMES Branch DAILY atropine 1 2021-0 Yes INSTILL 1 [place] % 6-21 DROP TO ity of ophthalmic 00:00: THE LEFT [place] drops 00 EYE 4 Medical TIMES Branch DAILY START 04/03/2022* * BESIVANCE 2021-0 Yes INSTILL 1 [facility] vers 0.6 % drops 6-21 DROP TO ity o f 00:00: THE LEFT [place] 00 EYE 2 Medical TIMES A Branch DAY START 04/03/2022* * Diflupredna 2021-0 Yes INSTILL 1 [facility] nivers te 0.05 % 6-21 DROP TO ity of 00:00: THE LEFT [place] 00 EYE 4 Medical TIMES Branch DAILY atropine 1 2021-0 Yes INSTILL 1 [place] % 6-21 DROP TO ity of ophthalmic 00:00: THE LEFT [place] drops 00 EYE 4 Medical TIMES Branch DAILY START 04/03/2022* * BESIVANCE 2021- Yes INSTILL 1 [facility] vers 0.6 % drops 6-21 DROP TO ity o f 00:00: THE LEFT [place] 00 EYE 2 Medical TIMES A Branch DAY START 04/03/2022* * Diflupredna 2021-0 Yes INSTILL 1 [facility] nivers te 0.05 % 6-21 DROP TO ity of 00:00: THE LEFT [place] 00 EYE 4 Medical TIMES Branch DAILY atropine 1 2021-0 Yes INSTILL 1 [place] % 6-21 DROP TO ity of ophthalmic 00:00: THE LEFT [place] drops 00 EYE 4 Medical TIMES Branch DAILY START 04/03/2022* * BESIVANCE 2021-0 Yes INSTILL 1 [facility] vers 0.6 % drops 6-21 DROP TO ity o f 00:00: THE LEFT [place] 00 EYE 2 Medical TIMES A Branch DAY START 04/03/2022* * Diflupredna 2021-0 Yes INSTILL 1 [facility] nivers te 0.05 % 6-21 DROP TO ity of 00:00: THE LEFT [place] 00 EYE 4 Medical TIMES Branch DAILY atropine 1 2021-0 Yes INSTILL 1 [place] % 6-21 DROP TO ity of ophthalmic 00:00: THE LEFT [place] drops 00 EYE 4 Medical TIMES Branch DAILY START 04/03/2022* * BESIVANCE 2021-0 Yes INSTILL 1 [facility] vers 0.6 % drops 6-21 DROP TO ity o f 00:00: THE LEFT [place] 00 EYE 2 Medical TIMES A Branch DAY START 04/03/2022* * Diflupredna 2021-0 Yes INSTILL 1 [facility] nivers te 0.05 % 6-21 DROP TO ity of 00:00: THE LEFT [place] 00 EYE 4 Medical TIMES Branch DAILY atropine 1 2021-0 Yes INSTILL 1 [place] % 6-21 DROP TO ity of ophthalmic 00:00: THE LEFT [place] drops 00 EYE 4 Medical TIMES Branch DAILY START 04/03/2022* * BESIVANCE 2021-0 Yes INSTILL 1 [facility] vers 0.6 % drops 6-21 DROP TO ity o f 00:00: THE LEFT [place] 00 EYE 2 Medical TIMES A Branch DAY START 04/03/2022* * Diflupredna 2021-0 Yes INSTILL 1 [facility] nivers te 0.05 % 6-21 DROP TO ity of 00:00: THE LEFT [place] 00 EYE 4 Medical TIMES Branch DAILY atropine 1 2021-0 Yes INSTILL 1 [place] % 6-21 DROP TO ity of ophthalmic 00:00: THE LEFT [place] as drops 00 EYE 4 Medical TIMES Branch DAILY START 04/03/2022* * BESIVANCE 2021-0 Yes INSTILL 1 [facility] vers 0.6 % drops 6-21 DROP TO ity o f 00:00: THE LEFT [place] 00 EYE 2 Medical TIMES A Branch DAY START 04/03/2022* * Diflupredna 2021-0 Yes INSTILL 1 [facility] nivers te 0.05 % 6-21 DROP TO ity of 00:00: THE LEFT [place] 00 EYE 4 Medical TIMES Branch DAILY atropine 1 2021-0 Yes INSTILL 1 [place] % 6-21 DROP TO ity of ophthalmic 00:00: THE LEFT [place] drops 00 EYE 4 Medical TIMES Branch DAILY START 04/03/2022* * BESIVANCE 2021-0 Yes INSTILL 1 [facility] vers 0.6 % drops 6-21 DROP TO ity o f 00:00: THE LEFT [place] 00 EYE 2 Medical TIMES A Branch DAY START 04/03/2022* * Diflupredna 2021-0 Yes INSTILL 1 [facility] nivers te 0.05 % 6-21 DROP TO ity of 00:00: THE LEFT [place] 00 EYE 4 Medical TIMES Branch DAILY atropine 1 2021-0 Yes INSTILL 1 [place] % 6-21 DROP TO ity of ophthalmic 00:00: THE LEFT [place] as drops 00 EYE 4 Medical TIMES Branch DAILY START 04/03/2022* * BESIVANCE 2021-0 Yes INSTILL 1 [facility] vers 0.6 % drops 6-21 DROP TO ity o f 00:00: THE LEFT [place] 00 EYE 2 Medical TIMES A Branch DAY START 04/03/2022* * Diflupredna 2021-0 Yes INSTILL 1 [facility] nivers te 0.05 % 6-21 DROP TO ity of 00:00: THE LEFT [place] 00 EYE 4 Medical TIMES Branch DAILY atropine 1 2021-0 Yes INSTILL 1 [place] % 6-21 DROP TO ity of ophthalmic 00:00: THE LEFT [place] as drops 00 EYE 4 Medical TIMES Branch DAILY START 04/03/2022* * BESIVANCE 2021- Yes INSTILL 1 [facility] vers 0.6 % drops 6-21 DROP TO ity o f 00:00: THE LEFT [place] 00 EYE 2 Medical TIMES A Branch DAY START 04/03/2022* * Diflupredna 2021-0 Yes INSTILL 1 [facility] nivers te 0.05 % 6-21 DROP TO ity of 00:00: THE LEFT [place] 00 EYE 4 Medical TIMES Branch DAILY atropine 1 2021-0 Yes INSTILL 1 [place] % 6-21 DROP TO ity of ophthalmic 00:00: THE LEFT [place] drops 00 EYE 4 Medical TIMES Branch DAILY START 04/03/2022* * BESIVANCE 2021-0 Yes INSTILL 1 [facility] vers 0.6 % drops 6-21 DROP TO ity o f 00:00: THE LEFT [place] 00 EYE 2 Medical TIMES A Branch DAY START 04/03/2022* * Diflupredna 2021-0 Yes INSTILL 1 [facility] nivers te 0.05 % 6-21 DROP TO ity of 00:00: THE LEFT [place] 00 EYE 4 Medical TIMES Branch DAILY atropine 1 2021-0 Yes INSTILL 1 [place] % 6-21 DROP TO ity of ophthalmic 00:00: THE LEFT [place] drops 00 EYE 4 Medical TIMES Branch DAILY START 04/03/2022* * BESIVANCE 2022-0 Yes INSTILL 1 [facility] vers 0.6 % drops 6-21 DROP TO ity o f 00:00: THE LEFT [place] 00 EYE 2 Medical TIMES A Branch DAY START 04/03/2022* * Diflupredna Yes INSTILL 1 [facility] nivers te 0.05 % 6-21 DROP TO ity of 00:00: THE LEFT [place] 00 EYE 4 Medical TIMES Branch DAILY atropine 1 Yes INSTILL 1 [place] % 6-21 DROP TO ity of ophthalmic 00:00: THE LEFT [place] drops 00 EYE 4 Medical TIMES Branch DAILY START 04/03/2022* * BESIVANCE Yes INSTILL 1 [facility] vers 0.6 % drops 6-21 DROP TO ity o f 00:00: THE LEFT [place] 00 EYE 2 Medical TIMES A Branch DAY START 04/03/2022* * Milnacipran Yes Take by Uni vers 100 mg Tab 5-19 mouth. ity of 15:12: [address] Branch Milnacipran Yes Take by [facility] vers 100 mg Tab 5-19 mouth. ity of 15:12: [address] HYDROcodone Yes 2745 1{tbl} Take 1 [facility] -acetaminop 5-19 tablet by ity of hen 10-325 00:00: mouth [place] mg tablet 00 every 6 Medical (six) Branch hours as needed for Pain (scale 4-6). Indication s: chronic pain HYDROcodone Yes 2745 1{tbl} Take 1 [facility] -acetaminop 5-19 tablet by ity of hen 10-325 00:00: mouth [place] mg tablet 00 every 6 Medical (six) Branch hours as needed for Pain (scale 4-6). Indication s: chronic pain HYDROcodone Yes 2745 1{tbl} Take 1 [facility] -acetaminop 5-19 tablet by ity of hen 10-325 00:00: mouth [place] mg tablet 00 every 6 Medical (six) Branch hours as needed for Pain (scale 4-6). Indication s: chronic pain HYDROcodone Yes 2745 1{tbl} Take 1 [facility] -acetaminop 5-19 tablet by ity of hen 10-325 00:00: mouth [place] mg tablet 00 every 6 Medical (six) Branch hours as needed for Pain (scale 4-6). Indication s: chronic pain HYDROcodone 2-0 Yes 2745 1{tbl} Take 1 [facility] -acetaminop 5-19 tablet by ity of hen 10-325 00:00: mouth [place] mg tablet 00 every 6 Medical (six) Branch hours as needed for Pain (scale 4-6). Indication s: chronic pain HYDROcodone 2021-0 Yes 2745 1{tbl} Take 1 [facility] -acetaminop 5-19 tablet by ity of hen 10-325 00:00: mouth [place] mg tablet 00 every 6 Medical (six) Branch hours as needed for Pain (scale 4-6). Indication s: chronic pain HYDROcodone 2021-0 Yes 2745 1{tbl} Take 1 [facility] -acetaminop 5-19 tablet by ity of hen 10-325 00:00: mouth [place] mg tablet 00 every 6 Medical (six) Branch hours as needed for Pain (scale 4-6). Indication s: chronic pain HYDROcodone 2021-0 Yes 2745 1{tbl} Take 1 [facility] -acetaminop 5-19 tablet by ity of hen 10-325 00:00: mouth [place] mg tablet 00 every 6 Medical (six) Branch hours as needed for Pain (scale 4-6). Indication s: chronic pain HYDROcodone 2021-0 Yes 2745 1{tbl} Take 1 [facility] -acetaminop 5-19 tablet by ity of hen 10-325 00:00: mouth [place] mg tablet 00 every 6 Medical (six) Branch hours as needed for Pain (scale 4-6). Indication s: chronic pain HYDROcodone 2-0 Yes 2745 1{tbl} Take 1 [facility] -acetaminop 5-19 tablet by ity of hen 10-325 00:00: mouth [place] mg tablet 00 every 6 Medical (six) Branch hours as needed for Pain (scale 4-6). Indication s: chronic pain HYDROcodone 2-0 Yes 2745 1{tbl} Take 1 [facility] -acetaminop 5-19 tablet by ity of hen 10-325 00:00: mouth [place] mg tablet 00 every 6 Medical (six) Branch hours as needed for Pain (scale 4-6). Indication s: chronic pain HYDROcodone 2022-0 Yes 2745 1{tbl} Take 1 [facility] -acetaminop 5-19 tablet by ity of hen 10-325 00:00: mouth [place] mg tablet 00 every 6 Medical (six) Branch hours as needed for Pain (scale 4-6). Indication s: chronic pain HYDROcodone 2021-0 Yes 2745 1{tbl} Take 1 [facility] -acetaminop 5-19 tablet by ity of hen 10-325 00:00: mouth [place] mg tablet 00 every 6 Medical (six) Branch hours as needed for Pain (scale 4-6). Indication s: chronic pain HYDROcodone 2021-0 Yes 2745 1{tbl} Take 1 [facility] -acetaminop 5-19 tablet by ity of hen 10-325 00:00: mouth [place] mg tablet 00 every 6 Medical (six) Branch hours as needed for Pain (scale 4-6). Indication s: chronic pain HYDROcodone 2021-0 Yes 2745 1{tbl} Take 1 [facility] -acetaminop 5-19 tablet by ity of hen 10-325 00:00: mouth [place] mg tablet 00 every 6 Medical (six) Branch hours as needed for Pain (scale 4-6). Indication s: chronic pain HYDROcodone 2021-0 Yes 2745 1{tbl} Take 1 [facility] -acetaminop 5-19 tablet by ity of hen 10-325 00:00: mouth [place] mg tablet 00 every 6 Medical (six) Branch hours as needed for Pain (scale 4-6). Indication s: chronic pain HYDROcodone 2021-0 Yes 2745 1{tbl} Take 1 [facility] -acetaminop 5-19 tablet by ity of hen 10-325 00:00: mouth [place] mg tablet 00 every 6 Medical (six) Branch hours as needed for Pain (scale 4-6). Indication s: chronic pain HYDROcodone 2021-0 2021- No 2745 1{tbl} Take 1 [facility] -acetaminop 5-19 11-03 tablet by it y of hen 10-325 00:00: 00:00 mouth [place] mg tablet 00 :00 every 6 Medical (six) Branch hours as needed for Pain (scale 4-6). Indication s: chronic pain HYDROcodone 2021-0 2021- No 2745 1{tbl} Take 1 [facility] -acetaminop 5-19 11-03 tablet by it y of hen 10-325 00:00: 00:00 mouth [place] mg tablet 00 :00 every 6 Medical (six) Branch hours as needed for Pain (scale 4-6). Indication s: chronic pain mirabegron Yes [id number] 50mg Take 1 [facility] (MYRBETRIQ) 4-13 tablet by ity of 50 mg 00:00: mouth [place] tablet 00 daily. Medical Branch mirabegron Yes [id number] 50mg Take 1 [facility] (MYRBETRIQ) 4-13 tablet by ity of 50 mg 00:00: mouth [place] tablet 00 daily. Medical Branch mirabegron Yes [id number] 50mg Take 1 [facility] (MYRBETRIQ) 4-13 tablet by ity of 50 mg 00:00: mouth [place] tablet 00 daily. Medical Branch mirabegron Yes [id number] 50mg Take 1 [facility] (MYRBETRIQ) 4-13 tablet by ity of 50 mg 00:00: mouth [place] tablet 00 daily. Medical Branch mirabegron Yes [id number] 50mg Take 1 [facility] (MYRBETRIQ) 4-13 tablet by ity of 50 mg 00:00: mouth [place] tablet 00 daily. Medical Branch mirabegron Yes [id number] 50mg Take 1 [facility] (MYRBETRIQ) 4-13 tablet by ity of 50 mg 00:00: mouth [place] tablet 00 daily. Medical Branch mirabegron Yes [id number] 50mg Take 1 [facility] (MYRBETRIQ) 4-13 tablet by ity of 50 mg 00:00: mouth [place] tablet 00 daily. Medical Branch mirabegron Yes [id number] 50mg Take 1 [facility] (MYRBETRIQ) 4-13 tablet by ity of 50 mg 00:00: mouth [place] tablet 00 daily. Medical Branch mirabegron Yes [id number] 50mg Take 1 [facility] (MYRBETRIQ) 4-13 tablet by ity of 50 mg 00:00: mouth [place] tablet 00 daily. Medical Branch mirabegron Yes [id number] 50mg Take 1 [facility] (MYRBETRIQ) 4-13 tablet by ity of 50 mg 00:00: mouth [place] tablet 00 daily. [facility] mirabegron 0 Yes [id number] 50mg Take 1 Univers (MYRBETRIQ) 4-13 tablet by ity of 50 mg 00:00: mouth [place] tablet 00 daily. [facility] mirabegron 0 Yes [id number] 50mg Take 1 Univers (MYRBETRIQ) 4-13 tablet by ity of 50 mg 00:00: mouth [place] tablet 00 daily. [facility] mirabegron 0 Yes [id number] 50mg Take 1 Univers (MYRBETRIQ) 4-13 tablet by ity of 50 mg 00:00: mouth [place] tablet 00 daily. [facility] mirabegron 0 Yes [id number] 50mg Take 1 Univers (MYRBETRIQ) 4-13 tablet by ity of 50 mg 00:00: mouth [place] tablet 00 daily. [facility] mirabegron 0 Yes [id number] 50mg Take 1 Univers (MYRBETRIQ) 4-13 tablet by ity of 50 mg 00:00: mouth [place] tablet 00 daily. [facility] mirabegron 0 Yes [id number] 50mg Take 1 Univers (MYRBETRIQ) 4-13 tablet by ity of 50 mg 00:00: mouth [place] tablet 00 daily. [facility] mirabegron 0 Yes [id number] 50mg Take 1 Univers (MYRBETRIQ) 4-13 tablet by ity of 50 mg 00:00: mouth [place] tablet 00 daily. [facility] mirabegron 0 Yes [id number] 50mg Take 1 [facility] (MYRBETRIQ) 4-13 tablet by ity of 50 mg 00:00: mouth [place] tablet 00 daily. [facility] mirabegron 0 Yes [id number] 50mg Take 1 [facility] (MYRBETRIQ) 4-13 tablet by ity of 50 mg 00:00: mouth [place] tablet 00 daily. [facility] mirabegron 0 Yes [id number] 50mg Take 1 [facility] (MYRBETRIQ) 4-13 tablet by ity of 50 mg 00:00: mouth [place] tablet 00 daily. [facility] mirabegron 0 Yes [id number] 50mg Take 1 [facility] (MYRBETRIQ) 4-13 tablet by ity of 50 mg 00:00: mouth [place] tablet 00 daily. Medical Branch mirabegron 2021-0 Yes [id number] 50mg Take 1 [facility] (MYRBETRIQ) 4-13 tablet by ity of 50 mg 00:00: mouth [place] tablet 00 daily. Medical Branch mirabegron 2021-0 Yes [id number] 50mg Take 1 [facility] (MYRBETRIQ) 4-13 tablet by ity of 50 mg 00:00: mouth [place] tablet 00 daily. Medical Branch mirabegron 2021-0 Yes [id number] 50mg Take 1 [facility] (MYRBETRIQ) 4-13 tablet by ity of 50 mg 00:00: mouth [place] tablet 00 daily. Medical Branch mirabegron 2021-0 Yes [id number] 50mg Take 1 [facility] (MYRBETRIQ) 4-13 tablet by ity of 50 mg 00:00: mouth [place] tablet 00 daily. Medical Branch mirabegron 2021-0 Yes [id number] 50mg Take 1 [facility] (MYRBETRIQ) 4-13 tablet by ity of 50 mg 00:00: mouth [place] tablet 00 daily. Medical Branch mirabegron 2021-0 Yes [id number] 50mg Take 1 [facility] (MYRBETRIQ) 4-13 tablet by ity of 50 mg 00:00: mouth [place] tablet 00 daily. [facility] foLIC acid 2021-0 Yes TAKE 1 [facility] 1 mg tablet 2-23 TABLET BY ity of 00:00: ORAL ROUTE [place] 00 EVERY DAY Medical FOR WITH Branch MTX methotrexat 2021-0 Yes TAKE 4 [facility] e 2.5 mg 2-23 TABLET BY ity of tablet 00:00: ORAL ROUTE [place] 00 EVERY WEEK Medical FOR RA Branch foLIC acid 2021-0 Yes TAKE 1 [facility] 1 mg tablet 2-23 TABLET BY ity of 00:00: ORAL ROUTE [place] 00 EVERY DAY Medical FOR WITH Branch MTX methotrexat 2021-0 Yes TAKE 4 [facility] e 2.5 mg 2-23 TABLET BY ity of tablet 00:00: ORAL ROUTE [place] 00 EVERY WEEK Medical FOR RA Branch foLIC acid 2021-0 Yes TAKE 1 [facility] 1 mg tablet 2-23 TABLET BY ity of 00:00: ORAL ROUTE [place] 00 EVERY DAY Medical FOR WITH Branch MTX methotrexat 2022-0 Yes TAKE 4 [facility] e 2.5 mg 2-23 TABLET BY ity of tablet 00:00: ORAL ROUTE [place] EVERY WEEK Medical FOR RA Branch foLIC acid 2022-0 Yes TAKE 1 [facility] 1 mg tablet 2-23 TABLET BY ity of 00:00: ORAL ROUTE [place] EVERY DAY Medical FOR WITH Branch MTX methotrexat 2022-0 Yes TAKE 4 [facility] e 2.5 mg 2-23 TABLET BY ity of tablet 00:00: ORAL ROUTE [place] EVERY WEEK Medical FOR RA Branch foLIC acid 2022-0 Yes TAKE 1 [facility] 1 mg tablet 2-23 TABLET BY ity of 00:00: ORAL ROUTE [place] EVERY DAY Medical FOR WITH Branch MTX methotrexat 2-0 Yes TAKE 4 [facility] e 2.5 mg 2-23 TABLET BY ity of tablet 00:00: ORAL ROUTE [place] EVERY WEEK Medical FOR RA Branch foLIC acid 2022-0 Yes TAKE 1 [facility] 1 mg tablet 2-23 TABLET BY ity of 00:00: ORAL ROUTE [place] EVERY DAY Medical FOR WITH Branch MTX methotrexat 2022-0 Yes TAKE 4 [facility] e 2.5 mg 2-23 TABLET BY ity of tablet 00:00: ORAL ROUTE [place] EVERY WEEK Medical FOR RA Branch foLIC acid 2022-0 Yes TAKE 1 [facility] 1 mg tablet 2-23 TABLET BY ity of 00:00: ORAL ROUTE [place] EVERY DAY Medical FOR WITH Branch MTX methotrexat 2022-0 Yes TAKE 4 [facility] 2.5 mg 2-23 TABLET BY ity of tablet 00:00: ORAL ROUTE [place] EVERY WEEK Medical FOR RA Branch foLIC acid 2022-0 Yes TAKE 1 [facility] 1 mg tablet 2-23 TABLET BY ity of 00:00: ORAL ROUTE [place] EVERY DAY Medical FOR WITH Branch MTX methotrexat 2022-0 Yes TAKE 4 [facility] e 2.5 mg 2-23 TABLET BY ity of tablet 00:00: ORAL ROUTE [place] EVERY WEEK Medical FOR RA Branch foLIC acid 2022-0 Yes TAKE 1 [facility] 1 mg tablet 2-23 TABLET BY ity of 00:00: ORAL ROUTE [place] EVERY DAY Medical FOR WITH Branch MTX methotrexat 2022-0 Yes TAKE 4 [facility] 2.5 mg 2-23 TABLET BY ity of tablet 00:00: ORAL ROUTE [place] EVERY WEEK Medical FOR RA Branch foLIC acid 2022-0 Yes TAKE 1 [facility] 1 mg tablet 2-23 TABLET BY ity of 00:00: ORAL ROUTE EVERY DAY Medical FOR WITH Branch MTX methotrexat 2022-0 Yes TAKE 4 [facility] 2.5 mg 2-23 TABLET BY ity of tablet 00:00: ORAL ROUTE EVERY WEEK Medical FOR RA Branch foLIC acid 2022-0 Yes TAKE 1 [facility] 1 mg tablet 2-23 TABLET BY ity of 00:00: ORAL ROUTE [place] EVERY DAY Medical FOR WITH Branch MTX methotrexat 2-0 Yes TAKE 4 [facility] e 2.5 mg 2-23 TABLET BY ity of tablet 00:00: ORAL ROUTE EVERY WEEK Medical FOR RA Branch foLIC acid 2-0 Yes TAKE 1 [facility] 1 mg tablet 2-23 TABLET BY ity of 00:00: ORAL ROUTE EVERY DAY Medical FOR WITH Branch MTX methotrexat 2-0 Yes TAKE 4 [facility] 2.5 mg 2-23 TABLET BY ity of tablet 00:00: ORAL ROUTE EVERY WEEK Medical FOR RA Branch foLIC acid 2022-0 Yes TAKE 1 [facility] 1 mg tablet 2-23 TABLET BY ity of 00:00: ORAL ROUTE EVERY DAY Medical FOR WITH Branch MTX methotrexat 2-0 Yes TAKE 4 [facility] 2.5 mg 2-23 TABLET BY it[facility] of tablet 00:00: ORAL ROUTE EVERY WEEK Medical FOR RA Branch foLIC acid 2022-0 Yes TAKE 1 [facility] 1 mg tablet 2-23 TABLET BY ity of 00:00: ORAL ROUTE EVERY DAY Medical FOR WITH Branch MTX methotrexat 2022-0 Yes TAKE 4 [facility] 2.5 mg 2-23 TABLET BY ity of tablet 00:00: ORAL ROUTE EVERY WEEK Medical FOR RA Branch foLIC acid 2022-0 Yes TAKE 1 [facility] 1 mg tablet 2-23 TABLET BY ity of 00:00: ORAL ROUTE EVERY DAY Medical FOR WITH Branch MTX methotrexat 2022-0 Yes TAKE 4 [facility] 2.5 mg 2-23 TABLET BY it[facility] of tablet 00:00: ORAL ROUTE [place] EVERY WEEK Medical FOR RA Branch foLIC acid 2022-0 Yes TAKE 1 [facility] 1 mg tablet 2-23 TABLET BY it[facility] of 00:00: ORAL ROUTE [place] EVERY DAY Medical FOR WITH Branch MTX methotrexat 2022-0 Yes TAKE 4 [facility] 2.5 mg 2-23 TABLET BY ity of tablet 00:00: ORAL ROUTE EVERY WEEK Medical FOR RA Branch foLIC acid 2022-0 Yes TAKE 1 [facility] 1 mg tablet 2-23 TABLET BY ity of 00:00: ORAL ROUTE EVERY DAY Medical FOR WITH Branch MTX methotrexat 2-0 Yes TAKE 4 [facility] 2.5 mg 2-23 TABLET BY it[facility] of tablet 00:00: ORAL ROUTE EVERY WEEK Medical FOR RA Branch foLIC acid 2-0 Yes TAKE 1 [facility] 1 mg tablet 2-23 TABLET BY ity of 00:00: ORAL ROUTE [place] EVERY DAY Medical FOR WITH Branch MTX methotrexat 2-0 Yes TAKE 4 [facility] 2.5 mg 2-23 TABLET BY ity of tablet 00:00: ORAL ROUTE [place] EVERY WEEK Medical FOR RA Branch foLIC acid 2-0 Yes TAKE 1 [facility] 1 mg tablet 2-23 TABLET BY ity of 00:00: ORAL ROUTE [place] EVERY DAY Medical FOR WITH Branch MTX methotrexat 2-0 Yes TAKE 4 [facility] 2.5 mg 2-23 TABLET BY ity of tablet 00:00: ORAL ROUTE [place] EVERY WEEK Medical FOR RA Branch foLIC acid 2-0 Yes TAKE 1 [facility] 1 mg tablet 2-23 TABLET BY it[facility] of 00:00: ORAL ROUTE [place] EVERY DAY Medical FOR WITH Branch MTX methotrexat 2022-0 Yes TAKE 4 [facility] 2.5 mg 2-23 TABLET BY ity of tablet 00:00: ORAL ROUTE [place] EVERY WEEK Medical FOR RA Branch foLIC acid 2022-0 Yes TAKE 1 [facility] 1 mg tablet 2-23 TABLET BY ity of 00:00: ORAL ROUTE [place] EVERY DAY Medical FOR WITH Branch MTX methotrexat 2-0 Yes TAKE 4 [facility] 2.5 mg 2-23 TABLET BY it[facility] of tablet 00:00: ORAL ROUTE [place] EVERY WEEK Medical FOR RA Branch foLIC acid 2022-0 Yes TAKE 1 [facility] 1 mg tablet 2-23 TABLET BY ity of 00:00: ORAL ROUTE [place] EVERY DAY Medical FOR WITH Branch MTX methotrexat 2022-0 Yes TAKE 4 [facility] 2.5 mg 2-23 TABLET BY ity of tablet 00:00: ORAL ROUTE EVERY WEEK Medical FOR RA Branch foLIC acid 2022-0 Yes TAKE 1 [facility] 1 mg tablet 2-23 TABLET BY ity of 00:00: ORAL ROUTE [place] EVERY DAY Medical FOR WITH Branch MTX methotrexat 2-0 Yes TAKE 4 [facility] 2.5 mg 2-23 TABLET BY ity of tablet 00:00: ORAL ROUTE EVERY WEEK Medical FOR RA Branch foLIC acid 2021-0 Yes TAKE 1 [facility] 1 mg tablet 2-23 TABLET BY it[facility] of 00:00: ORAL ROUTE [place] EVERY DAY Medical FOR WITH Branch MTX methotrexat 2021-0 Yes TAKE 4 [facility] 2.5 mg 2-23 TABLET BY it[facility] of tablet 00:00: ORAL ROUTE [place] EVERY WEEK Medical FOR RA Branch foLIC acid 2-0 Yes TAKE 1 [facility] 1 mg tablet 2-23 TABLET BY [facility] of 00:00: ORAL ROUTE [place] EVERY DAY Medical FOR WITH Branch MTX methotrexat 2021-0 Yes TAKE 4 [facility] 2.5 mg 2-23 TABLET BY [facility] of tablet 00:00: ORAL ROUTE [place] EVERY WEEK Medical FOR RA Branch foLIC acid 2-0 Yes TAKE 1 [facility] 1 mg tablet 2-23 TABLET BY it[facility] of 00:00: ORAL ROUTE [place] EVERY DAY Medical FOR WITH Branch MTX methotrexat 2-0 Yes TAKE 4 [facility] 2.5 mg 2-23 TABLET BY [facility] of tablet 00:00: ORAL ROUTE [place] EVERY WEEK Medical FOR RA Branch foLIC acid 2022-0 Yes TAKE 1 [facility] 1 mg tablet 2-23 TABLET BY it[facility] of 00:00: ORAL ROUTE [place] EVERY DAY Medical FOR WITH Branch MTX methotrexat 2-0 Yes TAKE 4 [facility] 2.5 mg 2-23 TABLET BY [facility] of tablet 00:00: ORAL ROUTE [place] EVERY WEEK Medical FOR RA Branch triamcinolo 2-0 Yes APPLY THIN [facility] ne 2-14 LAYER TO [facility] acetonide 00:00: [place] 0.1 % 00 AREA ON Medical ointment TRUNK AND Branch EXTREMITIE S TWICE A DAY FOR 2 WEEKS/AMY H FOR ITCHING triamcinolo 2022-0 Yes APPLY THIN [facility] ne 2-14 LAYER TO [facility]y of acetonide 00:00: [place] 0.1 % 00 AREA ON Medical ointment TRUNK AND Branch EXTREMITIE S TWICE A DAY FOR 2 WEEKS/AMY H FOR ITCHING triamcinolo 2021-0 Yes APPLY THIN [facility] ne 2-14 LAYER TO ity of acetonide 00:00: [place]ED [place] 0.1 % 00 AREA ON Medical ointment TRUNK AND Branch EXTREMITIE S TWICE A DAY FOR 2 WEEKS/AMY H FOR ITCHING triamcinolo 2021-0 Yes APPLY THIN [facility] ne 2-14 LAYER TO [facility]y of acetonide 00:00: [place]ED [place] 0.1 % 00 AREA ON Medical ointment TRUNK AND Branch EXTREMITIE S TWICE A DAY FOR 2 WEEKS/AMY H FOR ITCHING triamcinolo 2021-0 Yes APPLY THIN [facility] ne 2-14 LAYER TO [facility]y of acetonide 00:00: [place]ED [place] 0.1 % 00 AREA ON Medical ointment TRUNK AND Branch EXTREMITIE S TWICE A DAY FOR 2 WEEKS/AMY H FOR ITCHING triamcinolo 2021-0 Yes APPLY THIN [facility] ne 2-14 LAYER TO ity of acetonide 00:00: [place]FFECTED [place] 0.1 % 00 AREA ON Medical ointment TRUNK AND Branch EXTREMITIE S TWICE A DAY FOR 2 WEEKS/AMY H FOR ITCHING triamcinolo 2021-0 Yes APPLY THIN [facility] ne 2-14 LAYER TO ity of acetonide 00:00: [place]ECTED [place] 0.1 % 00 AREA ON Medical ointment TRUNK AND Branch EXTREMITIE S TWICE A DAY FOR 2 WEEKS/AMY H FOR ITCHING triamcinolo 2021-0 Yes APPLY THIN [facility] ne 2-14 LAYER TO ity of acetonide 00:00: [place]FFECTED [place] 0.1 % 00 AREA ON Medical ointment TRUNK AND Branch EXTREMITIE S TWICE A DAY FOR 2 WEEKS/AMY H FOR ITCHING triamcinolo 2021-0 Yes APPLY THIN [facility] ne 2-14 LAYER TO ity of acetonide 00:00: [place]FFECTED [place] 0.1 % 00 AREA ON Medical ointment TRUNK AND Branch EXTREMITIE S TWICE A DAY FOR 2 WEEKS/AMY H FOR ITCHING triamcinolo 2021-0 Yes APPLY THIN [facility] ne 2-14 LAYER TO ity of acetonide 00:00: [place]FFECTED [place] 0.1 % 00 AREA ON Medical ointment TRUNK AND Branch EXTREMITIE S TWICE A DAY FOR 2 WEEKS/AMY H FOR ITCHING triamcinolo 2021-0 Yes APPLY THIN [facility] ne 2-14 LAYER TO ity of acetonide 00:00: [place]FFECTED [place] 0.1 % 00 AREA ON Medical ointment TRUNK AND Branch EXTREMITIE S TWICE A DAY FOR 2 WEEKS/AMY H FOR ITCHING triamcinolo 2021-0 Yes APPLY THIN [facility] ne 2-14 LAYER TO ity of acetonide 00:00: [place]FFECTED [place] 0.1 % 00 AREA ON Medical ointment TRUNK AND Branch EXTREMITIE S TWICE A DAY FOR 2 WEEKS/AMY H FOR ITCHING triamcinolo 2021-0 Yes APPLY THIN [facility] ne 2-14 LAYER TO ity of acetonide 00:00: [place]ECTED [place] 0.1 % 00 AREA ON Medical ointment TRUNK AND Branch EXTREMITIE S TWICE A DAY FOR 2 WEEKS/AMY H FOR ITCHING triamcinolo 2021-0 Yes APPLY THIN [facility] ne 2-14 LAYER TO ity of acetonide 00:00: [place]ECTED [place] 0.1 % 00 AREA ON Medical ointment TRUNK AND Branch EXTREMITIE S TWICE A DAY FOR 2 WEEKS/AMY H FOR ITCHING triamcinolo 2021-0 Yes APPLY THIN [facility] 2-14 LAYER TO ity of acetonide 00:00: [place]FFECTED [place] 0.1 % 00 AREA ON Medical ointment TRUNK AND Branch EXTREMITIE S TWICE A DAY FOR 2 WEEKS/AMY H FOR ITCHING triamcinolo 2021-0 Yes APPLY THIN [facility] ne 2-14 LAYER TO ity of acetonide 00:00: [place]ECTED [place] 0.1 % 00 AREA ON Medical ointment TRUNK AND Branch EXTREMITIE S TWICE A DAY FOR 2 WEEKS/AMY H FOR ITCHING triamcinolo 2021-0 Yes APPLY THIN [facility] ne 2-14 LAYER TO ity of acetonide 00:00: [place]FFECTED [place] 0.1 % 00 AREA ON Medical ointment TRUNK AND Branch EXTREMITIE S TWICE A DAY FOR 2 WEEKS/AMY H FOR ITCHING triamcinolo 2021-0 Yes APPLY THIN [facility] ne 2-14 LAYER TO ity of acetonide 00:00: [place]ECTED [place] 0.1 % 00 AREA ON Medical ointment TRUNK AND Branch EXTREMITIE S TWICE A DAY FOR 2 WEEKS/AMY H FOR ITCHING triamcinolo 2022-0 Yes APPLY THIN [facility] ne 2-14 LAYER TO ity of acetonide 00:00: [place]ECTED [place] 0.1 % 00 AREA ON Medical ointment TRUNK AND Branch EXTREMITIE S TWICE A DAY FOR 2 WEEKS/AMY H FOR ITCHING triamcinolo 2022-0 Yes APPLY THIN [facility] ne 2-14 LAYER TO ity of acetonide 00:00: [place]ECTED [place] 0.1 % 00 AREA ON Medical ointment TRUNK AND Branch EXTREMITIE S TWICE A DAY FOR 2 WEEKS/AMY H FOR ITCHING triamcinolo 2021-0 Yes APPLY THIN [facility] ne 2-14 LAYER TO ity of acetonide 00:00: [place]ECTED [place] 0.1 % 00 AREA ON Medical ointment TRUNK AND Branch EXTREMITIE S TWICE A DAY FOR 2 WEEKS/AMY H FOR ITCHING triamcinolo 2021-0 Yes APPLY THIN [facility] ne 2-14 LAYER TO ity of acetonide 00:00: [place]ECTED [place] 0.1 % 00 AREA ON Medical ointment TRUNK AND Branch EXTREMITIE S TWICE A DAY FOR 2 WEEKS/AMY H FOR ITCHING triamcinolo 2021-0 Yes APPLY THIN [facility] ne 2-14 LAYER TO ity of acetonide 00:00: [place]ECTED [place] 0.1 % 00 AREA ON Medical ointment TRUNK AND Branch EXTREMITIE S TWICE A DAY FOR 2 WEEKS/AMY H FOR ITCHING triamcinolo 2021-0 Yes APPLY THIN [facility] ne 2-14 LAYER TO ity of acetonide 00:00: [place]ECTED [place] 0.1 % 00 AREA ON Medical ointment TRUNK AND Branch EXTREMITIE S TWICE A DAY FOR 2 WEEKS/AMY H FOR ITCHING triamcinolo 2021-0 Yes APPLY THIN [facility] ne 2-14 LAYER TO ity of acetonide 00:00: [place]FFECTED [place] 0.1 % 00 AREA ON Medical ointment TRUNK AND Branch EXTREMITIE S TWICE A DAY FOR 2 WEEKS/AMY H FOR ITCHING triamcinolo 2021-0 Yes APPLY THIN [facility] ne 2-14 LAYER TO ity of acetonide 00:00: [place]FFECTED [place] 0.1 % 00 AREA ON Medical ointment TRUNK AND Branch EXTREMITIE S TWICE A DAY FOR 2 WEEKS/AMY H FOR ITCHING triamcinolo Yes APPLY THIN [facility] ne 2-14 LAYER TO ity of acetonide 00:00: [place]FFECTED [place] 0.1 % 00 AREA ON Medical ointment TRUNK AND Branch EXTREMITIE S TWICE A DAY FOR 2 WEEKS/AMY H FOR ITCHING olmesartan Yes [id number] 20mg Take 1 [facility] n[facility] 20 mg 9-16 tablet by ity of tablet 00:00: mouth [place] 00 daily. Medical Branch olmesartan 0 Yes [id number] 20mg Take 1 [facility] 20 mg 9-16 tablet by ity of tablet 00:00: mouth [place] 00 daily. Medical Branch olmesartan 0 Yes [id number] 20mg Take 1 [facility] 20 mg 9-16 tablet by ity of tablet 00:00: mouth [place] 00 daily. Medical Branch olmesartan 0 Yes [id number] 20mg Take 1 [facility] 20 mg 9-16 tablet by ity of tablet 00:00: mouth [place] 00 daily. Medical Branch olmesartan 0 Yes [id number] 20mg Take 1 [facility] 20 mg 9-16 tablet by ity of tablet 00:00: mouth [place] 00 daily. Medical Branch olmesartan 0 Yes [id number] 20mg Take 1 [facility] 20 mg 9-16 tablet by ity of tablet 00:00: mouth [place] 00 daily. Medical Branch olmesartan 0 Yes [id number] 20mg Take 1 [facility] 20 mg 9-16 tablet by ity of tablet 00:00: mouth [place] 00 daily. Medical Branch olmesartan 0 2- No [id number] 20mg Take 1 [facility] 20 mg 9-16 09-19 tablet by ity of tablet 00:00: 00:00 mouth [place] 00 :00 daily. Medical Branch eszopiclone 0 Yes 3mg Take 3 mg U nivers 3 mg tablet 6-17 by mouth ity of 00:00: at [place] 00 bedtime. Medical Branch eszopiclone 0 Yes 3mg Take 3 mg U nivers 3 mg tablet 6-17 by mouth ity of 00:00: at [place] 00 bedtime. Medical Branch eszopiclone 0 Yes 3mg Take 3 mg U nivers 3 mg tablet 6-17 by mouth ity of 00:00: at [place] [address] bedtime. Medical Branch eszopiclone 2020-0 Yes 3mg Take 3 mg U nivers 3 mg tablet 6-17 by mouth ity of 00:00: at [place] [address] bedtime. Medical Branch eszopiclone 2020-0 Yes 3mg Take 3 mg [facility] nivers 3 mg tablet 6-17 by mouth ity of 00:00: at [place] [address] bedtime. Medical Branch eszopiclone 2020-0 Yes 3mg Take 3 mg [facility] nivers 3 mg tablet 6-17 by mouth ity of 00:00: at [place] [address] bedtime. Medical Branch eszopiclone 2020-0 Yes 3mg Take 3 mg [facility] nivers 3 mg tablet 6-17 by mouth ity of 00:00: at [place] [address] bedtime. Medical Branch eszopiclone 2020-0 Yes 3mg Take 3 mg [facility] nivers 3 mg tablet 6-17 by mouth ity of 00:00: at [place] [address] bedtime. Medical Branch eszopiclone 2020-0 Yes 3mg Take 3 mg [facility] nivers 3 mg tablet 6-17 by mouth ity of 00:00: at [place] [address] bedtime. Medical Branch eszopiclone 2020-0 Yes 3mg Take 3 mg [facility] nivers 3 mg tablet 6-17 by mouth ity of 00:00: at [place] [address] bedtime. Medical Branch eszopiclone 2020-0 Yes 3mg Take 3 mg [facility] nivers 3 mg tablet 6-17 by mouth ity of 00:00: at [place] [address] bedtime. Medical Branch eszopiclone 2020-0 Yes 3mg Take 3 mg [facility] nivers 3 mg tablet 6-17 by mouth ity of 00:00: at [place] [address] bedtime. Medical Branch eszopiclone 2020-0 Yes 3mg Take 3 mg [facility] nivers 3 mg tablet 6-17 by mouth ity of 00:00: at [place] [address] bedtime. Medical Branch eszopiclone 2020-0 Yes 3mg Take 3 mg [facility] nivers 3 mg tablet 6-17 by mouth ity of 00:00: at [place] [address] bedtime. Medical Branch eszopiclone 2020-0 Yes 3mg Take 3 mg [facility] nivers 3 mg tablet 6-17 by mouth ity of 00:00: at [place] [address] bedtime. Medical Branch eszopiclone 2020-0 Yes 3mg Take 3 mg [facility] nivers 3 mg tablet 6-17 by mouth ity of 00:00: at [place] [address] bedtime. Medical Branch eszopiclone 2020-0 Yes 3mg Take 3 mg [facility] n[facility] 3 mg tablet 6-17 by mouth ity of 00:00: at [place] [address] bedtime. Medical Branch eszopiclone 0 Yes 3mg Take 3 mg [facility] nivers 3 mg tablet 6-17 by mouth ity of 00:00: at [place] [address] bedtime. Medical Branch eszopiclone 2020-0 Yes 3mg Take 3 mg [facility] nivers 3 mg tablet 6-17 by mouth ity of 00:00: at [place] [address] bedtime. Medical Branch eszopiclone 0 Yes 3mg Take 3 mg [facility] nivers 3 mg tablet 6-17 by mouth ity of 00:00: at [place] [address] bedtime. Medical Branch eszopiclone 0 Yes 3mg Take 3 mg [facility] 3 mg tablet 6-17 by mouth ity of 00:00: at [place] [address] bedtime. Medical Branch eszopiclone 0 Yes 3mg Take 3 mg [facility]ivers 3 mg tablet 6-17 by mouth ity of 00:00: at [place] [address] bedtime. Medical Branch eszopiclone 2020-0 Yes 3mg Take 3 mg [facility] 3 mg tablet 6-17 by mouth ity of 00:00: at [place] [address] bedtime. Medical Branch eszopiclone 2020-0 Yes 3mg Take 3 mg [facility] 3 mg tablet 6-17 by mouth ity of 00:00: at [place] [address] bedtime. Medical Branch eszopiclone 2020-0 Yes 3mg Take 3 mg [facility] 3 mg tablet 6-17 by mouth ity of 00:00: at [place] [address] bedtime. Medical Branch eszopiclone 0 Yes 3mg Take 3 mg [facility] 3 mg tablet 6-17 by mouth ity of 00:00: at [place] [address] bedtime. Medical Branch eszopiclone 2020-0 Yes 3mg Take 3 mg [facility] 3 mg tablet 6-17 by mouth ity of 00:00: at [place] [address] bedtime. Medical Branch busPIRone 5 1-0 Yes 5mg Take 5 mg [facility] nivers mg tablet 6-12 by mouth 3 ity of 00:00: (three) [place] 00 times Medical daily. Branch busPIRone 5 1-0 Yes 5mg Take 5 mg [facility] n[facility] mg tablet 6-12 by mouth 3 ity of 00:00: (three) [place] 00 times Medical daily. Branch busPIRone 5 1-0 Yes 5mg Take 5 mg [facility] n[facility] mg tablet 6-12 by mouth 3 ity of 00:00: (three) [place] 00 times Medical daily. Branch busPIRone 5 1-0 Yes 5mg Take 5 mg [facility] mg tablet 6-12 by mouth 3 ity of 00:00: (three) [place] 00 times Medical daily. Branch busPIRone 5 1-0 Yes 5mg Take 5 mg [facility]ivers mg tablet 6-12 by mouth 3 ity of 00:00: (three) [place] 00 times Medical daily. Branch busPIRone 5 1-0 Yes 5mg Take 5 mg [facility] mg tablet 6-12 by mouth 3 ity of 00:00: (three) [place] 00 times Medical daily. Branch busPIRone 5 1-0 Yes 5mg Take 5 mg [facility] nivers mg tablet 6-12 by mouth 3 ity of 00:00: (three) [place] 00 times Medical daily. Branch busPIRone 5 1-0 Yes 5mg Take 5 mg [facility] n[facility] mg tablet 6-12 by mouth 3 ity of 00:00: (three) [place] 00 times Medical daily. Branch busPIRone 5 1-0 Yes 5mg Take 5 mg [facility] mg tablet 6-12 by mouth 3 ity of 00:00: (three) [place] 00 times Medical daily. Branch busPIRone 5 1-0 Yes 5mg Take 5 mg [facility] nivers mg tablet 6-12 by mouth 3 ity of 00:00: (three) [place] 00 times Medical daily. Branch busPIRone 5 1-0 Yes 5mg Take 5 mg [facility] nivers mg tablet 6-12 by mouth 3 ity of 00:00: (three) [place] 00 times Medical daily. Branch busPIRone 5 1-0 Yes 5mg Take 5 mg [facility] nivers mg tablet 6-12 by mouth 3 ity of 00:00: (three) [place] 00 times Medical daily. Branch busPIRone 5 1-0 Yes 5mg Take 5 mg [facility] nivers mg tablet 6-12 by mouth 3 ity of 00:00: (three) [place] 00 times Medical daily. Branch busPIRone 5 1-0 Yes 5mg Take 5 mg [facility] n[facility] mg tablet 6-12 by mouth 3 ity of 00:00: (three) [place] 00 times Medical daily. Branch busPIRone 5 1-0 Yes 5mg Take 5 mg [facility] mg tablet 6-12 by mouth 3 ity of 00:00: (three) [place] 00 times Medical daily. Branch busPIRone 5 1-0 Yes 5mg Take 5 mg [facility] mg tablet 6-12 by mouth 3 ity of 00:00: (three) [place] 00 times Medical daily. Branch busPIRone 5 1-0 Yes 5mg Take 5 mg [facility] n[facility] mg tablet 6-12 by mouth 3 ity of 00:00: (three) [place] 00 times Medical daily. Branch busPIRone 5 1-0 Yes 5mg Take 5 mg [facility] mg tablet 6-12 by mouth 3 ity of 00:00: (three) [place] 00 times Medical daily. Branch busPIRone 5 1-0 Yes 5mg Take 5 mg [facility] mg tablet 6-12 by mouth 3 ity of 00:00: (three) [place] 00 times Medical daily. Branch busPIRone 5 1-0 Yes 5mg Take 5 mg [facility] n[facility] mg tablet 6-12 by mouth 3 ity of 00:00: (three) [place] 00 times Medical daily. Branch busPIRone 5 1-0 Yes 5mg Take 5 mg [facility] mg tablet 6-12 by mouth 3 ity of 00:00: (three) [place] 00 times Medical daily. Branch busPIRone 5 1-0 Yes 5mg Take 5 mg [facility] mg tablet 6-12 by mouth 3 ity of 00:00: (three) [place] 00 times Medical daily. Branch busPIRone 5 1-0 Yes 5mg Take 5 mg [facility] n[facility] mg tablet 6-12 by mouth 3 ity of 00:00: (three) [place] 00 times Medical daily. Branch busPIRone 5 1-0 Yes 5mg Take 5 mg [facility] mg tablet 6-12 by mouth 3 ity of 00:00: (three) [place] 00 times Medical daily. Branch busPIRone 5 1-0 Yes 5mg Take 5 mg [facility] nivers mg tablet 6-12 by mouth 3 ity of 00:00: (three) [place] 00 times Medical daily. Branch busPIRone 5 1-0 Yes 5mg Take 5 mg [facility] n[facility] mg tablet 6-12 by mouth 3 ity of 00:00: (three) [place] 00 times Medical daily. Branch busPIRone 5 2020-0 Yes 5mg Take 5 mg [facility] mg tablet 6-12 by mouth 3 ity of 00:00: (three) [place] 00 times Medical daily. Branch ergocalcife 2021-0 Yes [id number] Take [facility] rol, 3-06 50,000 ity of vitamin d2, 00:00: Units by [place] 1,250 mcg 00 mouth Medical (50,000 weekly. Branch unit) capsule ergocalcife 2021-0 Yes [id number] Take [facility] ers rol, 3-06 50,000 ity of vitamin d2, 00:00: Units by [place] 1,250 mcg 00 mouth Medical (50,000 weekly. Branch unit) capsule ergocalcife 2021-0 Yes [id number] Take [facility] ers rol, 3-06 50,000 ity of vitamin d2, 00:00: Units by [place] 1,250 mcg 00 mouth Medical (50,000 weekly. Branch unit) capsule ergocalcife 2021-0 Yes [id number] Take [facility] ers rol, 3-06 50,000 ity of vitamin d2, 00:00: Units by [place] 1,250 mcg 00 mouth Medical (50,000 weekly. Branch unit) capsule ergocalcife 2021-0 Yes [id number] Take [facility] ers rol, 3-06 50,000 ity of vitamin d2, 00:00: Units by [place] 1,250 mcg 00 mouth Medical (50,000 weekly. Branch unit) capsule ergocalcife 2021-0 Yes [id number] Take [facility] rol, 3-06 50,000 ity of vitamin d2, 00:00: Units by [place] 1,250 mcg 00 mouth Medical (50,000 weekly. Branch unit) capsule ergocalcife 2021-0 Yes [id number] Take [facility] ers rol, 3-06 50,000 ity of vitamin d2, 00:00: Units by [place] 1,250 mcg 00 mouth Medical (50,000 weekly. Branch unit) capsule ergocalcife 2021-0 Yes [id number] Take [facility] ers rol, 3-06 50,000 ity of vitamin d2, 00:00: Units by [place] 1,250 mcg 00 mouth Medical (50,000 weekly. Branch unit) capsule ergocalcife 2021-0 Yes [id number] Take [facility] ers rol, 3-06 50,000 ity of vitamin d2, 00:00: Units by [place] 1,250 mcg 00 mouth Medical (50,000 weekly. Branch unit) capsule ergocalcife 2021-0 Yes [id number] Take [facility] rol, 3- 50,000 ity of vitamin d2, 00:00: Units by [place] 1,250 mcg 00 mouth Medical (50,000 weekly. Branch unit) capsule ergocalcife 2021-0 Yes [id number] Take [facility] rol, 3- 50,000 ity of vitamin d2, 00:00: Units by [place] 1,250 mcg 00 mouth Medical (50,000 weekly. Branch unit) capsule ergocalcife 2021-0 Yes [id number] Take [facility] rol, 3- 50,000 ity of vitamin d2, 00:00: Units by [place] 1,250 mcg 00 mouth Medical (50,000 weekly. Branch unit) capsule ergocalcife 2021-0 Yes [id number] Take [facility] rol, 3- 50,000 ity of vitamin d2, 00:00: Units by [place] 1,250 mcg 00 mouth Medical (50,000 weekly. Branch unit) capsule ergocalcife 2021-0 Yes [id number] Take [facility] rol, 3-06 50,000 ity of vitamin d2, 00:00: Units by [place] 1,250 mcg 00 mouth Medical (50,000 weekly. Branch unit) capsule ergocalcife 2021-0 Yes [id number] Take [facility] rol, 3-06 50,000 ity of vitamin d2, 00:00: Units by [place] 1,250 mcg 00 mouth Medical (50,000 weekly. Branch unit) capsule ergocalcife 2021-0 Yes [id number] Take [facility], 3-06 50,000 ity of vitamin d2, 00:00: [facility] [place] 1,250 mcg 00 [facility] (50,000 weekly. [facility] unit) capsule ergocalcife 2021-0 Yes [id number] Take [facility], 3-06 50,000 ity of vitamin d2, 00:00: [facility] [place] 1,250 mcg 00 [facility] (50,000 weekly. [facility] unit) capsule ergocalcife 2021-0 Yes [id number] Take [facility], 3-06 50,000 ity of vitamin d2, 00:00: [facility] [place] 1,250 mcg 00 [facility] (50,000 weekly. [facility] unit) capsule ergocalcife 2021-0 Yes [id number] Take [facility], 3-06 50,000 ity of vitamin d2, 00:00: [facility] [place] 1,250 mcg 00 [facility] (50,000 weekly. [facility] unit) capsule ergocalcife 2021-0 Yes [id number] Take [facility], 3-06 50,000 ity of vitamin d2, 00:00: [facility] [place] 1,250 mcg 00 [facility] (50,000 weekly. Branch unit) capsule ergocalcife 2021-0 Yes [id number] Take [facility] rol, 3-06 50,000 ity of vitamin d2, 00:00: [place] 1,250 mcg 00 mouth Medical (50,000 weekly. Branch unit) capsule ergocalcife 2021-0 Yes [id number] Take [facility] ers rol, 3-06 50,000 ity of vitamin d2, 00:00: [place] 1,250 mcg 00 mouth [facility] (50,000 weekly. Branch unit) capsule ergocalcife 2021-0 Yes [id number] Take [facility] ers rol, 3-06 50,000 ity of vitamin d2, 00:00: [place] 1,250 mcg 00 mouth Medical (50,000 weekly. Branch unit) capsule ergocalcife 2021-0 Yes [id number] Take [facility] ers rol, 3-06 50,000 ity of vitamin d2, 00:00: [place] 1,250 mcg 00 mouth Medical (50,000 weekly. Branch unit) capsule ergocalcife 2021-0 Yes [id number] Take [facility] ers rol, 3-06 50,000 ity of vitamin d2, 00:00: [place] 1,250 mcg 00 mouth Medical (50,000 weekly. Branch unit) capsule ergocalcife 2021-0 Yes [id number] Take [facility] rol, 3-06 50,000 ity of vitamin d2, 00:00: [place] 1,250 mcg 00 mouth Medical (50,000 weekly. Branch unit) capsule ergocalcife 2021-0 Yes [id number] Take [facility] rol, 3-06 50,000 ity of vitamin d2, 00:00: [place] 1,250 mcg 00 mouth Medical (50,000 weekly. Branch unit) capsule mirtazapine 2017-0 Yes 30mg Take 30 mg Univers 30 mg 9-07 by mouth ity of tablet 00:00: at [place] 00 bedtime. Medical Indication Branch s: 1.5 tab qhs mirtazapine 2017-0 Yes 30mg Take 30 mg Univers 30 mg 9-07 by mouth ity of tablet 00:00: at [place] [address] bedtime. Medical Indication Branch s: 1.5 tab qhs mirtazapine 2017-0 Yes 30mg Take 30 mg Univers 30 mg 9-07 by mouth ity of tablet 00:00: at [place] 00 bedtime. Medical Indication Branch s: 1.5 tab qhs mirtazapine 2017-0 Yes 30mg Take 30 mg Univers 30 mg 9-07 by mouth ity of tablet 00:00: at [place] 00 bedtime. Medical Indication Branch s: 1.5 tab qhs mirtazapine 2017-0 Yes 30mg Take 30 mg Univers 30 mg 9-07 by mouth ity of tablet 00:00: at [place] 00 bedtime. Medical Indication Branch s: 1.5 tab qhs mirtazapine 2017-0 Yes 30mg Take 30 mg Univers 30 mg 9-07 by mouth ity of tablet 00:00: at [place] 00 bedtime. Medical Indication Branch s: 1.5 tab qhs mirtazapine 2017-0 Yes 30mg Take 30 mg Univers 30 mg 9-07 by mouth ity of tablet 00:00: at [place] 00 bedtime. Medical Indication Branch s: 1.5 tab qhs mirtazapine 2017-0 Yes 30mg Take 30 mg Univers 30 mg 9-07 by mouth ity of tablet 00:00: at [place] 00 bedtime. Medical Indication Branch s: 1.5 tab qhs mirtazapine 2017-0 Yes 30mg Take 30 mg Univers 30 mg 07 by mouth ity of tablet 00:00: at [place] [address] bedtime. Medical Indication Branch s: 1.5 tab qhs mirtazapine 2017-0 Yes 30mg Take 30 mg Univers 30 mg 06-16 by mouth ity of tablet 00:00: at [place] [address] bedtime. Medical Indication Branch s: 1.5 tab qhs mirtazapine 2017-0 Yes 30mg Take 30 mg Univers 30 mg 06-16 by mouth ity of tablet 00:00: at [place] [address] bedtime. Medical Indication Branch s: 1.5 tab qhs mirtazapine 2017-0 Yes 30mg Take 30 mg Univers 30 mg 06-16 by mouth ity of tablet 00:00: at [place] [address] bedtime. Medical Indication Branch s: 1.5 tab qhs mirtazapine 2017-0 Yes 30mg Take 30 mg Univers 30 mg 06-16 by mouth ity of tablet 00:00: at [place] [address] bedtime. Medical Indication Branch s: 1.5 tab qhs mirtazapine 2017-0 Yes 30mg Take 30 mg Univers 30 mg 06-16 by mouth ity of tablet 00:00: at [place] [address] bedtime. Medical Indication Branch s: 1.5 tab qhs mirtazapine 2017-0 Yes 30mg Take 30 mg Univers 30 mg 06-16 by mouth ity of tablet 00:00: at [place] [address] bedtime. Medical Indication Branch s: 1.5 tab qhs mirtazapine 2017-0 Yes 30mg Take 30 mg Univers 30 mg 06-16 by mouth ity of tablet 00:00: at [place] [address] bedtime. Medical Indication Branch s: 1.5 tab qhs mirtazapine 2017-0 Yes 30mg Take 30 mg Univers 30 mg 07 by mouth ity of tablet 00:00: at [place] [address] bedtime. Medical Indication Branch s: 1.5 tab qhs mirtazapine 2017-0 Yes 30mg Take 30 mg Univers 30 mg 9-07 by mouth ity of tablet 00:00: at [place] [address] bedtime. Medical Indication Branch s: 1.5 tab qhs mirtazapine 2017-0 Yes 30mg Take 30 mg Univers 30 mg 07 by mouth ity of tablet 00:00: at [place] [address] bedtime. Medical Indication Branch s: 1.5 tab qhs mirtazapine 2017-0 Yes 30mg Take 30 mg Univers 30 mg 9-07 by mouth ity of tablet 00:00: at [place] [address] bedtime. Medical Indication Branch s: 1.5 tab qhs mirtazapine 2017-0 Yes 30mg Take 30 mg Univers 30 mg 9-07 by mouth ity of tablet 00:00: at [place] [address] bedtime. Medical Indication Branch s: 1.5 tab qhs mirtazapine 2017-0 Yes 30mg Take 30 mg Univers 30 mg 9-07 by mouth ity of tablet 00:00: at [place] [address] bedtime. Medical Indication Branch s: 1.5 tab qhs mirtazapine 2017-0 Yes 30mg Take 30 mg Univers 30 mg 9-07 by mouth ity of tablet 00:00: at [place] [address] bedtime. Medical Indication Branch s: 1.5 tab qhs mirtazapine 2017-0 Yes 30mg Take 30 mg Univers 30 mg 9-07 by mouth ity of tablet 00:00: at [place] [address] bedtime. Medical Indication Branch s: 1.5 tab qhs mirtazapine 2017-0 Yes 30mg Take 30 mg Univers 30 mg 9-07 by mouth ity of tablet 00:00: at [place] [address] bedtime. Medical Indication Branch s: 1.5 tab qhs mirtazapine 2017-0 Yes 30mg Take 30 mg Univers 30 mg 9-07 by mouth ity of tablet 00:00: at [place] [address] bedtime. Medical Indication Branch s: 1.5 tab qhs mirtazapine 2017-0 Yes 30mg Take 30 mg Univers 30 mg 9-07 by mouth ity of tablet 00:00: at [place] [address] bedtime. Medical Indication Branch s: 1.5 tab qhs Immunizations Ordered Filled Immunization Date Status Comments [facility] e Immunization Name Name SARS-COV-2 COVID-19 2021-08-24 Completed Unive rsity of PFIZER VACCINE 00:00:00 [facility] Influenza Virus 2021-08-24 Completed Universit y of Vaccine,quad 00:00:00 [place] [facility] 65+ SARS-COV-2 COVID-19 2021-08-24 Completed Unive rsity of PFIZER VACCINE 00:00:00 [facility] Influenza Virus 2021-08-24 Completed Universit y of Vaccine,quad 00:00:00 [place] [facility] 65+ SARS-COV-2 COVID-19 2021-08-24 Completed Unive rsity of PFIZER VACCINE 00:00:00 [facility] Influenza Virus 2021-08-24 Completed Universit y of Vaccine,quad 00:00:00 [place] [facility] 65+ SARS-COV-2 COVID-19 2021-08-24 Completed Unive rsity of PFIZER VACCINE 00:00:00 [facility] Branch Influenza Virus 2021-08-24 Completed Universit y of Vaccine,quad 00:00:00 [place] [facility] Branch 65+ SARS-COV-2 COVID-19 2021-08-24 Completed Unive rsity of PFIZER VACCINE 00:00:00 [facility] Influenza Virus 2021-08-24 Completed Universit y of Vaccine,quad 00:00:00 [place] [facility] 65+ SARS-COV-2 COVID-19 2021-08-24 Completed Unive rsity of PFIZER VACCINE 00:00:00 [facility] Influenza Virus 2021-08-24 Completed Universit y of Vaccine,quad 00:00:00 [place] [facility] 65+ SARS-COV-2 COVID-19 2021-08-24 Completed Unive rsity of PFIZER VACCINE 00:00:00 [facility] Influenza Virus 2021-08-24 Completed Universit y of Vaccine,quad 00:00:00 [place] [facility] 65+ SARS-COV-2 COVID-19 2021-08-24 Completed Unive rsity of PFIZER VACCINE 00:00:00 [facility] Influenza Virus 2021-08-24 Completed Universit y of Vaccine,quad 00:00:00 [place] [facility] 65+ SARS-COV-2 COVID-19 2021-08-24 Completed Unive rsity of PFIZER VACCINE 00:00:00 [facility] Branch Influenza Virus 2021-08-24 Completed Universit y of Vaccine,quad 00:00:00 [place] [facility] 65+ SARS-COV-2 COVID-19 2021-08-24 Completed Unive rsity of PFIZER VACCINE 00:00:00 [facility] Branch Influenza Virus 2021-08-24 Completed Universit y of Vaccine,quad 00:00:00 [place] [facility] Free [facility] 65+ SARS-COV-2 COVID-19 2021-08-24 Completed Unive rsity of PFIZER VACCINE 00:00:00 [place] [facility] Branch Influenza Virus 2021-08-24 Completed Universit y of Vaccine,quad 00:00:00 [place] [facility] Free [facility] 65+ SARS-COV-2 COVID-19 2021-08-24 Completed Unive rsity of PFIZER VACCINE 00:00:00 [place] [facility] Branch Influenza Virus 2021-08-24 Completed Universit y of Vaccine,quad 00:00:00 [place] [facility] 65+ SARS-COV-2 COVID-19 2021-08-24 Completed Unive rsity of PFIZER VACCINE 00:00:00 [facility] Branch Influenza Virus 2021-08-24 Completed Universit y of Vaccine,quad 00:00:00 [place] [facility] Free [facility] 65+ SARS-COV-2 COVID-19 2021-08-24 Completed Unive rsity of PFIZER VACCINE 00:00:00 [facility] Branch Influenza Virus 2021-08-24 Completed Universit y of Vaccine,quad 00:00:00 [place] [facility] Free [facility] 65+ SARS-COV-2 COVID-19 2021-08-24 Completed Unive rsity of PFIZER VACCINE 00:00:00 [facility] Branch Influenza Virus 2021-08-24 Completed Universit y of Vaccine,quad 00:00:00 [place] [facility] Free [facility] 65+ SARS-COV-2 COVID-19 2021-08-24 Completed Unive rsity of PFIZER VACCINE 00:00:00 [facility] Branch Influenza Virus 2021-08-24 Completed Universit y of Vaccine,quad 00:00:00 [place] [facility] 65+ SARS-COV-2 COVID-19 2021-08-24 Completed Unive rsity of PFIZER VACCINE 00:00:00 [facility] Branch Influenza Virus 2021-08-24 Completed Universit y of Vaccine,quad 00:00:00 [place] [facility] 65+ SARS-COV-2 COVID-19 2021-08-24 Completed Unive rsity of PFIZER VACCINE 00:00:00 [place] [facility] Branch Influenza Virus 2021-08-24 Completed Universit y of Vaccine,quad 00:00:00 [place] [facility] 65+ SARS-COV-2 COVID-19 2021-08-24 Completed Unive rsity of PFIZER VACCINE 00:00:00 [facility] Branch Influenza Virus 2021-08-24 Completed Universit y of Vaccine,quad 00:00:00 [place] [facility] 65+ SARS-COV-2 COVID-19 2021-08-24 Completed Unive rsity of PFIZER VACCINE 00:00:00 [facility] Branch Influenza Virus 2021-08-24 Completed Universit y of Vaccine,quad 00:00:00 [place] [facility] 65+ SARS-COV-2 COVID-19 2021-08-24 Completed Unive rsity of PFIZER VACCINE 00:00:00 [facility] Influenza Virus 2021-08-24 Completed Universit y of Vaccine,quad 00:00:00 [place] [facility] Free [facility] 65+ SARS-COV-2 COVID-19 2021-08-24 Completed Unive rsity of PFIZER VACCINE 00:00:00 [facility] Influenza Virus 2021-08-24 Completed Universit y of Vaccine,quad 00:00:00 [place] [facility] 65+ SARS-COV-2 COVID-19 2021-08-24 Completed Unive rsity of PFIZER VACCINE 00:00:00 [facility] Influenza Virus 2021-08-24 Completed Universit y of Vaccine,quad 00:00:00 [place] [facility] 65+ SARS-COV-2 COVID-19 2021-08-24 Completed Unive rsity of PFIZER VACCINE 00:00:00 [facility] Branch Influenza Virus 2021-08-24 Completed Universit y of Vaccine,quad 00:00:00 [place] [facility] 65+ SARS-COV-2 COVID-19 2021-08-24 Completed Unive rsity of PFIZER VACCINE 00:00:00 [facility] Branch Influenza Virus 2021-08-24 Completed Universit y of Vaccine,quad 00:00:00 [place] [facility] 65+ SARS-COV-2 COVID-19 2021-08-24 Completed Unive rsity of PFIZER VACCINE 00:00:00 [facility] Influenza Virus 2021-08-24 Completed Universit y of Vaccine,quad 00:00:00 [place] [facility],preserve Free [place] 65+ SARS-COV-2 COVID-19 2021-08-24 Completed Unive rsity of PFIZER VACCINE 00:00:00 [facility] Influenza Virus 2021-08-24 Completed Universit y of Vaccine,quad 00:00:00 [place] [facility] Free [place] 65+ SARS-COV-2 COVID-19 2020-11-19 Completed Unive rsity of PFIZER VACCINE 00:00:00 [facility] SARS-COV-2 COVID-19 2020-11-19 Completed Unive rsity of PFIZER VACCINE 00:00:00 [facility] SARS-COV-2 COVID-19 2020-11-19 Completed Unive rsity of PFIZER VACCINE 00:00:00 [facility] SARS-COV-2 COVID-19 2020-11-19 Completed Unive rsity of PFIZER VACCINE 00:00:00 [facility] SARS-COV-2 COVID-19 2020-11-19 Completed Unive rsity of PFIZER VACCINE 00:00:00 [facility] SARS-COV-2 COVID-19 2020-11-19 Completed Unive rsity of PFIZER VACCINE 00:00:00 [facility] SARS-COV-2 COVID-19 2020-11-19 Completed Unive rsity of PFIZER VACCINE 00:00:00 [facility] SARS-COV-2 COVID-19 2020-11-19 Completed Unive rsity of PFIZER VACCINE 00:00:00 [facility] SARS-COV-2 COVID-19 2020-11-19 Completed Unive rsity of PFIZER VACCINE 00:00:00 [facility] SARS-COV-2 COVID-19 2020-11-19 Completed Unive rsity of PFIZER VACCINE 00:00:00 [facility] SARS-COV-2 COVID-19 2020-11-19 Completed Unive rsity of PFIZER VACCINE 00:00:00 [facility] SARS-COV-2 COVID-19 2020-11-19 Completed Unive rsity of PFIZER VACCINE 00:00:00 [facility] Branch SARS-COV-2 COVID-19 2020-11-19 Completed Unive rsity of PFIZER VACCINE 00:00:00 [place] [facility] Branch SARS-COV-2 COVID-19 2020-11-19 Completed Unive rsity of PFIZER VACCINE 00:00:00 [facility] Branch SARS-COV-2 COVID-19 2020-11-19 Completed Unive rsity of PFIZER VACCINE 00:00:00 [place] [facility] Branch SARS-COV-2 COVID-19 2020-11-19 Completed Unive rsity of PFIZER VACCINE 00:00:00 [facility] Branch SARS-COV-2 COVID-19 2020-11-19 Completed Unive rsity of PFIZER VACCINE 00:00:00 [facility] Branch SARS-COV-2 COVID-19 2020-11-19 Completed Unive rsity of PFIZER VACCINE 00:00:00 [facility] Branch SARS-COV-2 COVID-19 2020-11-19 Completed Unive rsity of PFIZER VACCINE 00:00:00 [facility] Branch SARS-COV-2 COVID-19 2020-11-19 Completed Unive rsity of PFIZER VACCINE 00:00:00 [facility] Branch SARS-COV-2 COVID-19 2020-11-19 Completed Unive rsity of PFIZER VACCINE 00:00:00 [facility] Branch SARS-COV-2 COVID-19 2020-11-19 Completed Unive rsity of PFIZER VACCINE 00:00:00 [facility] Branch SARS-COV-2 COVID-19 2020-11-19 Completed Unive rsity of PFIZER VACCINE 00:00:00 [facility] Branch SARS-COV-2 COVID-19 2020-11-19 Completed Unive rsity of PFIZER VACCINE 00:00:00 [facility] Branch SARS-COV-2 COVID-19 2020-11-19 Completed Unive rsity of PFIZER VACCINE 00:00:00 [facility] Branch SARS-COV-2 COVID-19 2020-11-19 Completed Unive rsity of PFIZER VACCINE 00:00:00 [facility] Branch SARS-COV-2 COVID-19 2020-11-19 Completed Unive rsity of PFIZER VACCINE 00:00:00 [facility] Branch SARS-COV-2 COVID-19 2020-10-29 Completed Unive rsity of PFIZER VACCINE 00:00:00 [facility] SARS-COV-2 COVID-19 2020-10-29 Completed Unive rsity of PFIZER VACCINE 00:00:00 [facility] SARS-COV-2 COVID-19 2020-10-29 Completed Unive rsity of PFIZER VACCINE 00:00:00 [facility] SARS-COV-2 COVID-19 2020-10-29 Completed Unive rsity of PFIZER VACCINE 00:00:00 [facility] Branch SARS-COV-2 COVID-19 2020-10-29 Completed Unive rsity of PFIZER VACCINE 00:00:00 [facility] SARS-COV-2 COVID-19 2020-10-29 Completed Unive rsity of PFIZER VACCINE 00:00:00 [facility] SARS-COV-2 COVID-19 2020-10-29 Completed Unive rsity of PFIZER VACCINE 00:00:00 [facility] SARS-COV-2 COVID-19 2020-10-29 Completed Unive rsity of PFIZER VACCINE 00:00:00 [facility] Branch SARS-COV-2 COVID-19 2020-10-29 Completed Unive rsity of PFIZER VACCINE 00:00:00 [facility] SARS-COV-2 COVID-19 2020-10-29 Completed Unive rsity of PFIZER VACCINE 00:00:00 [facility] SARS-COV-2 COVID-19 2020-10-29 Completed Unive rsity of PFIZER VACCINE 00:00:00 [facility] SARS-COV-2 COVID-19 2020-10-29 Completed Unive rsity of PFIZER VACCINE 00:00:00 [facility] Branch SARS-COV-2 COVID-19 2020-10-29 Completed Unive rsity of PFIZER VACCINE 00:00:00 [facility] SARS-COV-2 COVID-19 2020-10-29 Completed Unive rsity of PFIZER VACCINE 00:00:00 [facility] SARS-COV-2 COVID-19 2020-10-29 Completed Unive rsity of PFIZER VACCINE 00:00:00 [facility] SARS-COV-2 COVID-19 2020-10-29 Completed Unive rsity of PFIZER VACCINE 00:00:00 [facility] SARS-COV-2 COVID-19 2020-10-29 Completed Unive rsity of PFIZER VACCINE 00:00:00 [facility] SARS-COV-2 COVID-19 2020-10-29 Completed Unive rsity of PFIZER VACCINE 00:00:00 [facility] SARS-COV-2 COVID-19 2020-10-29 Completed Unive rsity of PFIZER VACCINE 00:00:00 [facility] Branch SARS-COV-2 COVID-19 2020-10-29 Completed Unive rsity of PFIZER VACCINE 00:00:00 [facility] SARS-COV-2 COVID-19 2020-10-29 Completed Unive rsity of PFIZER VACCINE 00:00:00 [facility] Branch SARS-COV-2 COVID-19 2020-10-29 Completed Unive rsity of PFIZER VACCINE 00:00:00 [facility] SARS-COV-2 COVID-19 2020-10-29 Completed Unive rsity of PFIZER VACCINE 00:00:00 [facility] SARS-COV-2 COVID-19 2020-10-29 Completed Unive rsity of PFIZER VACCINE 00:00:00 [facility] SARS-COV-2 COVID-19 2020-10-29 Completed Unive rsity of PFIZER VACCINE 00:00:00 [facility] SARS-COV-2 COVID-19 2020-10-29 Completed Unive rsity of PFIZER VACCINE 00:00:00 [facility] SARS-COV-2 COVID-19 2020-10-29 Completed Unive rsity of PFIZER VACCINE 00:00:00 [facility] Influenza High Dose 2020-06-27 Completed Unive rsity of Quad 00:00:00 [facility] Influenza High Dose 2020-06-27 Completed Unive rsity of Quad 00:00:00 [facility] Influenza High Dose 2020-06-27 Completed Unive rsity of Quad 00:00:00 [facility] Influenza High Dose 2020-06-27 Completed Unive rsity of Quad 00:00:00 [facility] Influenza High Dose 2020-06-27 Completed Unive rsity of Quad 00:00:00 [facility] Influenza High Dose 2020-06-27 Completed Unive rsity of Quad 00:00:00 [facility] Influenza High Dose 2020-06-27 Completed Unive rsity of Quad 00:00:00 [facility] Influenza High Dose 2020-06-27 Completed Unive rsity of Quad 00:00:00 [facility] Influenza High Dose 2020-06-27 Completed Unive rsity of Quad 00:00:00 [facility] Influenza High Dose 2020-06-27 Completed Unive rsity of Quad 00:00:00 [facility] Influenza High Dose 2020-06-27 Completed Unive rsity of Quad 00:00:00 [facility] Influenza High Dose 2020-06-27 Completed Unive rsity of Quad 00:00:00 [facility] Influenza High Dose 2020-06-27 Completed Unive rsity of Quad 00:00:00 [facility] Influenza High Dose 2020-06-27 Completed Unive rsity of Quad 00:00:00 [facility] Influenza High Dose 2020-06-27 Completed Unive rsity of Quad 00:00:00 [facility] Influenza High Dose 2020-06-27 Completed Unive rsity of Quad 00:00:00 [facility] Influenza High Dose 2020-06-27 Completed Unive rsity of Quad 00:00:00 [facility] Influenza High Dose 2020-06-27 Completed Unive rsity of Quad 00:00:00 [facility] Influenza High Dose 2020-06-27 Completed Unive rsity of Quad 00:00:00 [facility] Influenza High Dose 2020-06-27 Completed Unive rsity of Quad 00:00:00 [facility] Influenza High Dose 2020-06-27 Completed Unive rsity of Quad 00:00:00 [facility] Influenza High Dose 2020-06-27 Completed Unive rsity of Quad 00:00:00 [facility] Influenza High Dose 2020-06-27 Completed Unive rsity of Quad 00:00:00 [facility] Influenza High Dose 2020-06-27 Completed Unive rsity of Quad 00:00:00 [facility] Influenza High Dose 2020-06-27 Completed Unive rsity of Quad 00:00:00 [facility] Influenza High Dose 2020-06-27 Completed Unive rsity of Quad 00:00:00 [facility] Influenza High Dose 2020-06-27 Completed Unive rsity of Quad 00:00:00 [facility] Pneumococcal 13 2019-04-17 Completed Universit y of Conjugate, PCV13 00:00:00 [place] [facility] (Prevnar 13) Branch Pneumococcal 13 2019-04-17 Completed Universit y of Conjugate, PCV13 00:00:00 [place] [facility] (Prevnar 13) Branch Pneumococcal 13 2019-04-17 Completed Universit y of Conjugate, PCV13 00:00:00 [place] [facility] (Prevnar 13) Branch Pneumococcal 13 2019-04-17 Completed Universit y of Conjugate, PCV13 00:00:00 [place] [facility] (Prevnar 13) Branch Pneumococcal 13 2019-04-17 Completed Universit y of Conjugate, PCV13 00:00:00 [place] [facility] (Prevnar 13) Branch Pneumococcal 13 2019-04-17 Completed Universit y of Conjugate, PCV13 00:00:00 [place] [facility] (Prevnar 13) Branch Pneumococcal 13 2019-04-17 Completed Universit y of Conjugate, PCV13 00:00:00 [place] [facility] (Prevnar 13) Branch Pneumococcal 13 2019-04-17 Completed Universit y of Conjugate, PCV13 00:00:00 [place] [facility] (Prevnar 13) Branch Pneumococcal 13 2019-04-17 Completed Universit y of Conjugate, PCV13 00:00:00 [place] [facility] (Prevnar 13) Branch Pneumococcal 13 2019-04-17 Completed Universit y of Conjugate, PCV13 00:00:00 [place] [facility] (Prevnar 13) Branch Pneumococcal 13 2019-04-17 Completed Universit y of Conjugate, PCV13 00:00:00 [place] [facility] (Prevnar 13) Branch Pneumococcal 13 2019-04-17 Completed Universit y of Conjugate, PCV13 00:00:00 [place] [facility] (Prevnar 13) Branch Pneumococcal 13 2019-04-17 Completed Universit y of Conjugate, PCV13 00:00:00 [place] [facility] (Prevnar 13) Branch Pneumococcal 13 2019-04-17 Completed Universit y of Conjugate, PCV13 00:00:00 [place] [facility] (Prevnar 13) Branch Pneumococcal 13 2019-04-17 Completed Universit y of Conjugate, PCV13 00:00:00 [place] [facility] (Prevnar 13) Branch Pneumococcal 13 2019-04-17 Completed Universit y of Conjugate, PCV13 00:00:00 [place] [facility] (Prevnar 13) Branch Pneumococcal 13 2019-04-17 Completed Universit y of Conjugate, PCV13 00:00:00 [place] [facility] (Prevnar 13) Branch Pneumococcal 13 2019-04-17 Completed Universit y of Conjugate, PCV13 00:00:00 [place] [facility] (Prevnar 13) Branch Pneumococcal 13 2019-04-17 Completed Universit y of Conjugate, PCV13 00:00:00 [place] [facility] (Prevnar 13) Branch Pneumococcal 13 2019-04-17 Completed Universit y of Conjugate, PCV13 00:00:00 [place] [facility] (Prevnar 13) Branch Pneumococcal 13 2019-04-17 Completed [facility]it y of Conjugate, PCV13 00:00:00 [place] [facility] (Prevnar 13) Branch Pneumococcal 13 2019-04-17 Completed [facility]it y of Conjugate, PCV13 00:00:00 [place] [facility] (Prevnar 13) Branch Pneumococcal 13 2019-04-17 Completed [facility] of Conjugate, PCV13 00:00:00 [place] [facility] [facility] 13[facility] Pneumococcal 13 2019-04-17 Completed [facility]it y of Conjugate, PCV13 00:00:00 [place] [facility] (Prevnar 13) Branch Pneumococcal 13 2019-04-17 Completed [facility] y of Conjugate, PCV13 00:00:00 [place] [facility] [facility] (Pre[facility] 13) [facility] Pneumococcal 13 2019-04-17 Completed Universit y of Conjugate, PCV13 00:00:00 [place] [facility] (Prevnar 13) [facility] Pneumococcal 13 2019-04-17 Completed [facility]it [facility] of Conjugate, PCV13 00:00:00 [facility] dical (Prevnar 13) Branch TDAP 2019-02-07 Completed University of 00:00:00 [facility] TDAP 2019-02-07 Completed University of 00:00:00 [facility] TDAP 2019-02-07 Completed University of 00:00:00 [facility] TDAP 2019-02-07 Completed University of 00:00:00 [facility] TDAP 2019-02-07 Completed University of 00:00:00 [facility] TDAP 2019-02-07 Completed University of 00:00:00 [facility] TDAP 2019-02-07 Completed University of 00:00:00 [facility] TDAP 2019-02-07 Completed University of 00:00:00 [facility] TDAP 2019-02-07 Completed University of 00:00:00 [facility] TDAP 2019-02-07 Completed University of 00:00:00 [facility] TDAP 2019-02-07 Completed [facility] 00:00:00 [facility] TDAP 2019-02-07 Completed [facility] of 00:00:00 [facility] TDAP 2019-02-07 Completed [facility] of 00:00:00 [facility] TDAP 2019-02-07 Completed [facility] of 00:00:00 [facility] TDAP 2019-02-07 Completed [facility] of 00:00:00 [facility] TDAP 2019-02-07 Completed [facility] of 00:00:00 [facility] TDAP 2019-02-07 Completed [facility] of 00:00:00 [facility] TDAP 2019-02-07 Completed [facility] of 00:00:00 [facility] TDAP 2019-02-07 Completed [facility] of 00:00:00 [facility] TDAP 2019-02-07 Completed [facility] of 00:00:00 [facility] TDAP 2019-02-07 Completed University of 00:00:00 [facility] TDAP 2019-02-07 Completed University of 00:00:00 [facility] TDAP 2019-02-07 Completed University of 00:00:00 [facility] TDAP 2019-02-07 Completed University of 00:00:00 [facility] TDAP 2019-02-07 Completed University of 00:00:00 [facility] TDAP 2019-02-07 Completed University of 00:00:00 [facility] TDAP 2019-02-07 Completed University of 00:00:00 [facility] Td 2019-01-28 Completed University of 00:00:00 [facility] Td 2019-01-28 Completed University of 00:00:00 [facility] Td 2019-01-28 Completed University of 00:00:00 [facility] Td 2019-01-28 Completed University of 00:00:00 [facility] Td 2019-01-28 Completed University of 00:00:00 [facility] Td 2019-01-28 Completed University of 00:00:00 [facility] Td 2019-01-28 Completed University of 00:00:00 [facility] Td 2019-01-28 Completed University of 00:00:00 [facility] Td 2019-01-28 Completed University of 00:00:00 [facility] Td 2019-01-28 Completed University of 00:00:00 [facility] Td 2019-01-28 Completed University of 00:00:00 [facility] Td 2019-01-28 Completed [facility] 00:00:00 [facility] Td 2019-01-28 Completed [facility] of 00:00:00 [facility] Td 2019-01-28 Completed [facility] of 00:00:00 [facility] Td 2019-01-28 Completed [facility] of 00:00:00 [facility] Td 2019-01-28 Completed University of 00:00:00 [facility] Td 2019-01-28 Completed [facility] of 00:00:00 [facility] Td 2019-01-28 Completed [facility] of 00:00:00 [facility] Td 2019-01-28 Completed [facility] of 00:00:00 [facility] Td 2019-01-28 Completed [facility] of 00:00:00 [facility] Td 2019-01-28 Completed [facility] of 00:00:00 [facility] Td 2019-01-28 Completed University of 00:00:00 [facility] Td 2019-01-28 Completed [facility] of 00:00:00 [facility] Td 2019-01-28 Completed [facility] of 00:00:00 [facility] Td 2019-01-28 Completed [facility] of 00:00:00 [facility] Td 2019-01-28 Completed University of 00:00:00 [facility] Td 2019-01-28 Completed University of 00:00:00 [facility] Influenza High Dose 2018-07-10 Completed Unive rsity of 00:00:00 [facility] Influenza High Dose 2018-07-10 Completed Unive rsity of 00:00:00 [facility] Influenza High Dose 2018-07-10 Completed Unive rsity of 00:00:00 [facility] Influenza High Dose 2018-07-10 Completed Unive rsity of 00:00:00 [facility] Influenza High Dose 2018-07-10 Completed Unive rsity of 00:00:00 [facility] Influenza High Dose 2018-07-10 Completed Unive rsity of 00:00:00 [facility] Influenza High Dose 2018-07-10 Completed Unive rsity of 00:00:00 [facility] Influenza High Dose 2018-07-10 Completed Unive rsity of 00:00:00 [facility] Influenza High Dose 2018-07-10 Completed Unive rsity of 00:00:00 [facility] Influenza High Dose 2018-07-10 Completed Unive rsity of 00:00:00 [facility] Influenza High Dose 2018-07-10 Completed Unive rsity of 00:00:00 [facility] Influenza High Dose 2018-07-10 Completed Unive rsity of 00:00:00 [facility] Influenza High Dose 2018-07-10 Completed Unive rsity of 00:00:00 [facility] Influenza High Dose 2018-07-10 Completed Unive rsity of 00:00:00 [facility] Influenza High Dose 2018-07-10 Completed Unive rsity of 00:00:00 [facility] Influenza High Dose 2018-07-10 Completed Unive rsity of 00:00:00 [facility] Influenza High Dose 2018-07-10 Completed Unive rsity of 00:00:00 [facility] Influenza High Dose 2018-07-10 Completed Unive rsity of 00:00:00 [facility] Influenza High Dose 2018-07-10 Completed Unive rsity of 00:00:00 [facility] Influenza High Dose 2018-07-10 Completed Unive rsity of 00:00:00 [facility] Influenza High Dose 2018-07-10 Completed Unive rsity of 00:00:00 [facility] Influenza High Dose 2018-07-10 Completed Unive rsity of 00:00:00 [facility] Influenza High Dose 2018-07-10 Completed Unive rsity of 00:00:00 [facility] Influenza High Dose 2018-07-10 Completed Unive rsity of 00:00:00 [facility] Influenza High Dose 2018-07-10 Completed Unive rsity of 00:00:00 [facility] Influenza High Dose 2018-07-10 Completed Unive rsity of 00:00:00 [facility] Influenza High Dose 2018-07-10 Completed Unive rsity of 00:00:00 [facility] Influenza High Dose 2017-07-08 Completed Unive rsity of 00:00:00 [facility] Influenza High Dose 2017-07-08 Completed Unive rsity of 00:00:00 [facility] Influenza High Dose 2017-07-08 Completed Unive rsity of 00:00:00 [facility] Influenza High Dose 2017-07-08 Completed Unive rsity of 00:00:00 [facility] Influenza High Dose 2017-07-08 Completed Unive rsity of 00:00:00 [facility] Influenza High Dose 2017-07-08 Completed Unive rsity of 00:00:00 [facility] Influenza High Dose 2017-07-08 Completed Unive rsity of 00:00:00 [facility] Influenza High Dose 2017-07-08 Completed Unive rsity of 00:00:00 [facility] Influenza High Dose 2017-07-08 Completed Unive rsity of 00:00:00 [facility] Influenza High Dose 2017-07-08 Completed Unive rsity of 00:00:00 [facility] Influenza High Dose 2017-07-08 Completed Unive rsity of 00:00:00 [facility] Influenza High Dose 2017-07-08 Completed Unive rsity of 00:00:00 [facility] Influenza High Dose 2017-07-08 Completed Unive rsity of 00:00:00 [facility] Influenza High Dose 2017-07-08 Completed Unive rsity of 00:00:00 [facility] Influenza High Dose 2017-07-08 Completed Unive rsity of 00:00:00 [facility] Influenza High Dose 2017-07-08 Completed Unive rsity of 00:00:00 [facility] Influenza High Dose 2017-07-08 Completed Unive rsity of 00:00:00 [facility] Influenza High Dose 2017-07-08 Completed Unive rsity of 00:00:00 [facility] Influenza High Dose 2017-07-08 Completed Unive rsity of 00:00:00 [facility] Influenza High Dose 2017-07-08 Completed Unive rsity of 00:00:00 [facility] Influenza High Dose 2017-07-08 Completed Unive rsity of 00:00:00 [facility] Influenza High Dose 2017-07-08 Completed Unive rsity of 00:00:00 [facility] Influenza High Dose 2017-07-08 Completed Unive rsity of 00:00:00 [facility] Influenza High Dose 2017-07-08 Completed Unive rsity of 00:00:00 [facility] Influenza High Dose 2017-07-08 Completed Unive rsity of 00:00:00 [facility] Influenza High Dose 2017-07-08 Completed Unive rsity of 00:00:00 [facility] Influenza High Dose 2017-07-08 Completed Unive rsity of 00:00:00 [facility] Influenza Virus 2011-07-06 Completed [facility]it y of Vaccine Quad IM 00:00:00 [place] [facility] Multi-dose 6+ [facility] Influenza Virus 2011-07-06 Completed [facility]it [facility] of Vaccine Quad IM 00:00:00 [place] [facility] Multi-dose 6+ [facility] Influenza Virus 2011-07-06 Completed [facility] of Vaccine Quad IM 00:00:00 [place] [facility] Multi-dose 6+ [facility] Influenza Virus 2011-07-06 Completed [facility] of Vaccine Quad IM 00:00:00 [place] [facility] Multi-dose 6+ [facility] Influenza Virus 2011-07-06 Completed [facility] of Vaccine [facility] IM 00:00:00 [place] [facility] Multi-dose 6+ [facility] Influenza Virus 2011-07-06 Completed [facility] of Vaccine Quad IM 00:00:00 [place] [facility] Multi-dose 6+ [facility] Influenza Virus 2011-07-06 Completed [facility] of Vaccine [facility] IM 00:00:00 [place] [facility] Multi-dose 6+ [facility] Influenza Virus 2011-07-06 Completed [facility] y of Vaccine Quad IM 00:00:00 [place] [facility] Multi-dose 6+ [facility] Influenza Virus 2011-07-06 Completed [facility] of Vaccine Quad IM 00:00:00 [place] [facility] Multi-dose 6+ [facility] Influenza Virus 2011-07-06 Completed [facility] y of Vaccine [facility] IM 00:00:00 [place] [facility] Multi-dose 6+ [facility] Influenza Virus 2011-07-06 Completed [facility] y of Vaccine Quad IM 00:00:00 [place] [facility] Multi-dose 6+ [facility] Influenza Virus 2011-07-06 Completed [facility] y of Vaccine Quad IM 00:00:00 [facility] Multi-dose 6+ [facility] Influenza Virus 2011-07-06 Completed [facility] of Vaccine Quad IM 00:00:00 [place] [facility] Multi-dose 6+ [facility] Influenza Virus 2011-07-06 Completed [facility] of Vaccine Quad IM 00:00:00 [place] [facility] Multi-dose 6+ [facility] Influenza Virus 2011-07-06 Completed [facility] of Vaccine [facility] IM 00:00:00 [place] [facility] Multi-dose 6+ [facility] Influenza Virus 2011-07-06 Completed [facility] of Vaccine Quad IM 00:00:00 [place] [facility] Multi-dose 6+ [facility] Influenza Virus 2011-07-06 Completed [facility] of Vaccine Quad IM 00:00:00 [place] [facility] Multi-dose 6+ [facility] Influenza Virus 2011-07-06 Completed [facility] of Vaccine Quad IM 00:00:00 [place] [facility] Multi-dose 6+ [facility] Influenza Virus 2011-07-06 Completed [facility] y of Vaccine Quad IM 00:00:00 [place] [facility] Multi-dose 6+ [facility] Influenza Virus 2011-07-06 Completed [facility] of Vaccine [facility] IM 00:00:00 [place] [facility] Multi-dose 6+ [facility] Influenza Virus 2011-07-06 Completed [facility] of Vaccine [facility] IM 00:00:00 [place] [facility] Multi-dose 6+ [facility] Influenza Virus 2011-07-06 Completed [facility] y of Vaccine [facility] IM 00:00:00 [place] [facility] Multi-dose 6+ [facility] Influenza Virus 2011-07-06 Completed [facility] of Vaccine [facility] IM 00:00:00 [place] [facility] Multi-dose 6+ [facility] Influenza Virus 2011-07-06 Completed [facility] of Vaccine [facility] IM 00:00:00 [place] [facility] Multi-dose 6+ [facility] Influenza Virus 2011-07-06 Completed [facility] of Vaccine [facility] IM 00:00:00 [place] [facility] Multi-dose 6+ [facility] Influenza Virus 2011-07-06 Completed [facility] of Vaccine Quad IM 00:00:00 [place] [facility] Multi-dose 6+ [facility] Influenza Virus 2011-07-06 Completed [facility] of Vaccine [facility] IM 00:00:00 [place] [facility] Multi-dose 6+ [facility] Influenza Virus 2010-07-13 Completed [facility] of Vaccine [facility] IM 00:00:00 [place] [facility] Multi-dose 6+ MO [facility] Influenza Virus 2010-07-13 Completed [facility] of Vacc[facility] IM 00:00:00 [place] [facility] Multi-dose 6+ MO [facility] Influenza Virus 2010-07-13 Completed [facility] of Vaccine [facility] IM 00:00:00 [place] [facility] Multi-dose 6+ [facility] Influenza Virus 2010-07-13 Completed [facility] of Vaccine [facility] IM 00:00:00 [place] [facility] Multi-dose 6+ [facility] Influenza Virus 2010-07-13 Completed [facility] of Vacc[facility] IM 00:00:00 [place] [facility] Multi-dose 6+ [facility] Influenza Virus 2010-07-13 Completed [facility] of Vaccine [facility] IM 00:00:00 [place] [facility] Multi-dose 6+ MO [facility] Influenza Virus 2010-07-13 Completed [facility] of Vaccine Quad IM 00:00:00 [place] [facility] Multi-dose 6+ MO [facility] Influenza Virus 2010-07-13 Completed [facility] of Vaccine [facility] IM 00:00:00 [place] [facility] Multi-dose 6+ [facility] Influenza Virus 2010-07-13 Completed [facility] of [facility] IM 00:00:00 [place] [facility] Multi-dose 6+ [facility] Influenza Virus 2010-07-13 Completed [facility] of Vaccine [facility] IM 00:00:00 [place] [facility] Multi-dose 6+ [facility] Influenza Virus 2010-07-13 Completed [facility] of Vaccine [facility] IM 00:00:00 [place] [facility] Multi-dose 6+ [facility] Influenza Virus 2010-07-13 Completed [facility] of Vaccine [facility] IM 00:00:00 [place] [facility] Multi-dose 6+ MO [facility] Influenza Virus 2010-07-13 Completed [facility] of Vaccine [facility] IM 00:00:00 [place] [facility] Multi-dose 6+ MO [facility] Influenza Virus 2010-07-13 Completed [facility] of Vaccine [facility] IM 00:00:00 [place] [facility] Multi-dose 6+ [facility] Influenza Virus 2010-07-13 Completed [facility] of Vaccine Quad IM 00:00:00 [place] [facility] Multi-dose 6+ [facility] Influenza Virus 2010-07-13 Completed [facility] of [facility] IM 00:00:00 [place] [facility] Multi-dose 6+ MO [facility] Influenza Virus 2010-07-13 Completed [facility] of Vaccine [facility] IM 00:00:00 [place] [facility] Multi-dose 6+ [facility] Influenza Virus 2010-07-13 Completed [facility] of [facility] IM 00:00:00 [place] [facility] Multi-dose 6+ [facility] Influenza Virus 2010-07-13 Completed [facility] of Vacc[facility] IM 00:00:00 [place] [facility] Multi-dose 6+ [facility] Influenza Virus 2010-07-13 Completed [facility] of Vacc[facility] IM 00:00:00 [place] [facility] Multi-dose 6+ [facility] Influenza Virus 2010-07-13 Completed [facility] of Vacc[facility] IM 00:00:00 [place] [facility] Multi-dose 6+ [facility] Influenza Virus 2010-07-13 Completed [facility] of Vaccine [facility] IM 00:00:00 [place] [facility] Multi-dose 6+ [facility] Influenza Virus 2010-07-13 Completed [facility] of Vaccine [facility] IM 00:00:00 [place] [facility] Multi-dose 6+ MO [facility] Influenza Virus 2010-07-13 Completed [facility] of Vaccine [facility] IM 00:00:00 [place] [facility] Multi-dose 6+ [facility] Influenza Virus 2010-07-13 Completed [facility] of [facility] 00:00:00 [place] [facility] Multi-dose 6+ [facility] Influenza Virus 2010-07-13 Completed [facility] of [facility] 00:00:00 [place] [facility] Multi-dose 6+ [facility] Influenza Virus 2010-07-13 Completed [facility] of [facility] IM 00:00:00 [place] [facility] Multi-dose 6+ [facility] Influenza Virus 2008-06-13 Completed [facility] of Vaccine [facility] IM 00:00:00 [place] [facility] Multi-dose 6+ [facility] Influenza Virus 2008-06-13 Completed [facility] of Vaccine [facility] IM 00:00:00 [place] [facility] Multi-dose 6+ [facility] Influenza Virus 2008-06-13 Completed [facility] of Vaccine [facility] IM 00:00:00 [place] [facility] Multi-dose 6+ [facility] Influenza Virus 2008-06-13 Completed [facility] of Vaccine [facility] IM 00:00:00 [place] [facility] Multi-dose 6+ [facility] Influenza Virus 2008-06-13 Completed [facility] of Vaccine [facility] IM 00:00:00 [place] [facility] Multi-dose 6+ [facility] Influenza Virus 2008-06-13 Completed [facility] of Vaccine [facility] IM 00:00:00 [place] [facility] Multi-dose 6+ [facility] Influenza Virus 2008-06-13 Completed [facility] of [facility] 00:00:00 [place] [facility] Multi-dose 6+ [facility] Influenza Virus 2008-06-13 Completed [facility] of Vacc[facility] IM 00:00:00 [place] [facility] Multi-dose 6+ [facility] Influenza Virus 2008-06-13 Completed [facility] of [facility] IM 00:00:00 [place] [facility] Multi-dose 6+ [facility] Influenza Virus 2008-06-13 Completed [facility] of Vaccine [facility] IM 00:00:00 [place] [facility] Multi-dose 6+ [facility] Influenza Virus 2008-06-13 Completed [facility] of Vaccine [facility] IM 00:00:00 [place] [facility] Multi-dose 6+ [facility] Influenza Virus 2008-06-13 Completed [facility] of Vaccine [facility] IM 00:00:00 [place] [facility] Multi-dose 6+ [facility] Influenza Virus 2008-06-13 Completed [facility] of Vaccine [facility] IM 00:00:00 [place] [facility] Multi-dose 6+ [facility] Influenza Virus 2008-06-13 Completed [facility] of [facility] IM 00:00:00 [place] [facility] Multi-dose 6+ [facility] Influenza Virus 2008-06-13 Completed [facility] of Vacc[facility] IM 00:00:00 [place] [facility] Multi-dose 6+ [facility] Influenza Virus 2008-06-13 Completed [facility] of Vacc[facility] IM 00:00:00 [place] [facility] Multi-dose 6+ [facility] Influenza Virus 2008-06-13 Completed [facility] of Vacc[facility] IM 00:00:00 [place] [facility] Multi-dose 6+ [facility] Influenza Virus 2008-06-13 Completed [facility] of Vacc[facility] IM 00:00:00 [place] [facility] Multi-dose 6+ [facility] Influenza Virus 2008-06-13 Completed [facility] of Vacc[facility] IM 00:00:00 [place] [facility] Multi-dose 6+ [facility] Influenza Virus 2008-06-13 Completed [facility] Vacc[facility] IM 00:00:00 [place] [facility] Multi-dose 6+ [facility] Influenza Virus 2008-06-13 Completed [facility] of [facility] IM 00:00:00 [place] [facility] Multi-dose 6+ [facility] Influenza Virus 2008-06-13 Completed [facility] of [facility] IM 00:00:00 [place] [facility] Multi-dose 6+ [facility] Influenza Virus 2008-06-13 Completed [facility] of [facility] IM 00:00:00 [place] [facility] Multi-dose 6+ [facility] Influenza Virus 2008-06-13 Completed [facility] of [facility] IM 00:00:00 [place] [facility] Multi-dose 6+ [facility] Influenza Virus 2008-06-13 Completed [facility] of Vacc[facility] IM 00:00:00 [place] [facility] Multi-dose 6+ [facility] Influenza Virus 2008-06-13 Completed [facility] of Vacc[facility] IM 00:00:00 [place] [facility] Multi-dose 6[facility] Influenza Virus 2008-06-13 Completed [facility] Vacc[facility] IM 00:00:00 [facility] Multi-dose [facility] Vital Signs Vital Name Observation Time Observation Value Comments Source Systolic blood 2022-09-06 17:01:00 150 mm[Hg] [facility] pressure [facility] Diastolic blood 2022-09-06 17:01:00 66 mm[Hg] Unive rsity of pressure [facility] Heart rate 2022-09-06 17:00:00 90 /min [facility] Body temperature 2022-09-06 17:00:00 36.44 [facility] Body height 2022-09-06 17:00:00 157.5 cm [facility] Body weight 2022-09-06 17:00:00 58.514 kg [facility] BMI 2022-09-06 17:00:00 23.59 kg/m2 [facility] Oxygen saturation in 2022-09-06 17:00:00 99 /min [facility] of Arterial blood by [facility] pushpa Pulse oximetry Branch Systolic blood 2022-08-18 21:17:00 136 mm[Hg] Univer sity of pressure [facility] Diastolic blood 2022-08-18 21:17:00 59 mm[Hg] Unive rsity of pressure [facility] Heart rate 2022-08-18 21:17:00 98 /min [facility] Body temperature 2022-08-18 21:17:00 37.44 [facility] Body height 2022-08-18 21:17:00 157.5 cm [facility] Body weight 2022-08-18 21:17:00 58.968 kg [facility] BMI 2022-08-18 21:17:00 23.78 kg/m2 [facility] Oxygen saturation in 2022-08-18 21:17:00 98 /min [facility] Arterial blood by [facility] pushpa Pulse oximetry Branch Systolic blood 2022-08-12 18:16:00 130 mm[Hg] Univer [facility]ity of pressure [facility] Diastolic blood 2022-08-12 18:16:00 66 mm[Hg] Unive rsity of pressure [facility] Heart rate 2022-08-12 18:16:00 95 /min [facility] Body temperature 2022-08-12 18:16:00 37.28 [facility] Body height 2022-08-12 18:16:00 157.5 cm [facility] Body weight 2022-08-12 18:16:00 59.421 kg [facility] BMI 2022-08-12 18:16:00 23.96 kg/m2 [facility] Oxygen saturation in 2022-08-12 18:16:00 97 /min [facility] blood by [place] [facility] Pulse [facility]xim[facility] Systolic blood 2022-07-29 14:36:00 136 mm[Hg] Univer [facility]ity of pressure [facility] Diastolic blood 2022-07-29 14:36:00 71 mm[Hg] Unive rsity of pressure [facility] Heart rate 2022-07-29 14:36:00 82 /min [facility] Body temperature 2022-07-29 14:36:00 36.94 [facility] Body height 2022-07-29 14:36:00 152.4 cm [facility] Body weight 2022-07-29 14:36:00 59.875 kg [facility] BMI 2022-07-29 14:36:00 25.78 kg/m2 [facility] Oxygen saturation in 2022-07-29 14:36:00 98 /min [facility] of Arterial blood by [facility] Pulse oximetry Branch Systolic blood 2022-07-22 15:49:00 134 mm[Hg] Univer [facility]ity of pressure [facility] Diastolic blood 2022-07-22 15:49:00 68 mm[Hg] [facility]ity of pressure [facility] Heart rate 2022-07-22 15:49:00 86 /min [facility] Body temperature 2022-07-22 15:49:00 37.22 [facility] Body height 2022-07-22 15:49:00 152.4 cm [facility] Body weight 2022-07-22 15:49:00 59.603 kg [facility] BMI 2022-07-22 15:49:00 25.66 kg/m2 [facility] Oxygen saturation in 2022-07-22 15:49:00 99 /min [facility] blood by [facility] Pulse oxim[facility] Systolic blood 2022-06-10 16:15:00 142 mm[Hg] [facility]iver [facility] of pressure [facility] Diastolic blood 2022-06-10 16:15:00 48 mm[Hg] [facility] of pressure [facility] Heart rate 2022-06-10 16:15:00 73 /min [facility] Respiratory rate 2022-06-10 16:15:00 15 /min [facility] Oxygen saturation in 2022-06-10 16:15:00 97 /min [facility] by [facility] [facility] [place] pushpa Pulse oximetry Branch Body temperature 2022-06-10 15:40:00 36.17 Tanesha [facility] [place] [facility] Body height 2022-06-04 20:31:00 157.5 cm [facility] Body weight 2022-06-04 20:31:00 60.1 kg [facility] [place] [facility] BMI 2022-06-04 20:31:00 24.23 kg/m2 [facility] [place] [facility] Systolic blood 2022-06-10 12:16:00 130 mm[Hg] [facility] [place] [facility] Diastolic blood 2022-06-10 12:16:00 57 mm[Hg] [facility] [place] [facility] Heart rate 2022-06-10 12:16:00 88 /min [facility] [place] [facility] Body temperature 2022-06-10 12:16:00 36.67 Tanesha [facility] [place] [facility] Respiratory rate 2022-06-10 12:16:00 18 /min [facility] [place] [facility] Oxygen saturation in 2022-06-10 12:16:00 97 /min [facility] of Arterial blood by [place] [facility] [place] pushpa Pulse oximetry Branch Body height 2022-06-04 20:31:00 157.5 cm [facility] [place] [facility] Body weight 2022-06-04 20:31:00 60.1 kg [facility] [place] [facility] BMI 2022-06-04 20:31:00 24.23 kg/m2 [facility] [place] [facility] Systolic blood 2022-06-03 17:56:00 127 mm[Hg] [facility] [place] [facility] Diastolic blood 2022-06-03 17:56:00 65 mm[Hg] [facility] [place] [facility] Heart rate 2022-06-03 17:56:00 83 /min [facility] Body height 2022-06-03 17:56:00 157.5 cm [facility] Body weight 2022-06-03 17:56:00 60.147 kg [facility] BMI 2022-06-03 17:56:00 24.25 kg/m2 [facility] Oxygen saturation in 2022-06-03 17:56:00 98 /min [facility] Arterial blood by [facility] Pulse oximetry Branch Procedures Procedure Date / Time Performing Clinician Source Performed POCT MOLECULAR STREP 2022-07-22 15:32:00 Irma Fuentes [facility] CYSTOSCOPY 2022-06-10 14:44:00 [facility] BOTOX INJECTION 2022-06-10 14:44:00 [facility] EXAM UNDER ANESTHESIA 2022-06-10 14:44:00 [facility] HB ABO GROUPING 2022-06-10 12:15:00 [facility] HB ABO GROUPING 2022-06-10 12:15:00 [facility] DAY SURGERY - ADC 2022-06-10 05:01:00 Doctor Unassigned, No [facility] 2022-06-08 19:53:18 Doctor Unassigned, No Un iversity [facility] DIAGNOSIS AND TREATMENT [facility] [place] CONSENT/REFUSAL FOR 2022-06-08 19:53:18 Doctor Unassigned, No [facility] Medical Branch ASSIGNMENT OF BENEFITS 2022-06-08 19:52:48 Doctor Unassigned, No [facility] ASSIGNMENT OF BENEFITS 2022-06-08 19:52:48 Doctor Unassigned, No [facility] NOTICE OF PRIVACY 2022-06-08 19:52:26 Doctor Unassigned, No [facility] [place] NOTICE OF PRIVACY 2022-06-08 19:52:26 Doctor Unassigned, No [facility] FOR 2022-06-08 19:51:56 Doctor Unassigned, No [facility] [place] DIAGNOSIS AND TREATMENT Name [facility] Branch CONSENT/REFUSAL FOR 2022-06-08 19:51:56 Doctor Unassigned, No [facility] [place] DIAGNOSIS AND TREATMENT Name Medical Branch ASSIGNMENT OF BENEFITS 2022-06-08 19:51:18 Doctor Unassigned, No [facility] ASSIGNMENT OF BENEFITS 2022-06-08 19:51:18 Doctor Unassigned, No [facility] CONSENT/REFUSAL FOR 2022-06-07 15:55:58 Doctor Unassigned, No [facility] [place] DIAGNOSIS AND TREATMENT Name [facility] CONSENT/REFUSAL FOR 2022-06-07 15:55:58 Doctor Unassigned, No [facility] [place] DIAGNOSIS AND TREATMENT [facility] Branch ASSIGNMENT OF BENEFITS 2022-06-07 15:55:21 Doctor Unassigned, No [facility] ASSIGNMENT OF BENEFITS 2022-06-07 15:55:21 Doctor Unassigned, No [facility] PATIENT QUESTIONNAIRE 2022-05-24 05:01:00 Doctor Unassigned, No [facility] Encounters Start End Encounter Admission Attending Care Care Encounter Source Date/Time Date/Time Type Type Clinicians Facility Department ID 2022-06-01 Outpatient R YINKA [facility] DIRECTOR HAIR [id number] Univers 15:55:14 DARWIN ames [facility] 2022-09-10 2022-09-10 Ref[facility] 1.2.840.114 [id number] Univers 00:00:00 00:00:00 Gypsy [employer] 350.1.13.10 it y of [place] 4.2.7.2.686 Michael as NEHEMIAH?BLEA [id number] [address] MEDICAL OFFICE BUILDING 2022-09-06 2022-09-06 Outpatient R [facility] [id number] Univers 10:30:00 11:25:56 GYPSY ames [facility] 2022-09-06 2022-09-06 Office [facility] 1.2.840.114 [id number] Univers 10:30:00 11:25:56 Visit Gypsy [employer] 350.1.13.10 it y of [place] 4.2.7.2.686 Michael as NEHEMIAH?BLEA [id number] [facility] [address] OFFICE [facility] 2022-08-20 2022-08-20 Refill [facility] 1.2.840.114 [id number] Univers 00:00:00 00:00:00 Blane HEALTH 350.1.13.10 it y of [place] 4.2.7.2.686 Michael as NEHEMIAH?BLEA [id number] [address] OFFICE [facility] 2022-08-18 2022-08-18 Out[facility] [id number] Univers 15:00:00 15:38:28 IRMA ity of [facility] 2022-08-18 2022-08-18 Office [facility] 1.2.840.114 [id number] Univers 15:00:00 15:38:28 Visit [facility] [employer] 350.1.13.10 i ty of [place] 4.2.7.2.686 Michael as NEHEMIAH?BLEA [id number] [address] OFFICE [facility] 2022-08-18 2022-08-18 Telephone [facility] 1.2.725.809 [id number] [facility] 00:00:00 00:00:00 [facility] 350.1.13.10 it y of [place] 4.2.7.2.686 Michael as NEHEMIAH?BLEA [id number] [address] OFFICE [facility] 2022-08-13 2022-08-13 Refill [facility] 1.2.840.114 [id number] Univers 00:00:00 00:00:00 Irma A HEALTH 350.1.13.10 i ty of [place] 4.2.7.2.686 Michael as NEHEMIAH?BLEA [id number] [address] OFFICE [facility] 2022-08-12 2022-08-12 Office [facility] 1.2.840.114 [id number] Univers 13:15:00 13:30:00 Visit [facility] 350.1.13.10 it y of [place] 4.2.7.2.686 Michael as NEHEMIAH?BLEA [id number] [address] OFFICE [facility] 2022-08-12 2022-08-12 Outpatient R [facility] [id number] Univers 13:15:00 13:15:00 BLANE alexandraluanne [facility] 2022-08-10 2022-08-10 Telephone [facility] 1.2.528.730 [id number] Univers 00:00:00 00:00:00 Blane HEALTH 350.1.13.10 it y of [place] 4.2.7.2.686 Michael as NEHEMIAH?BLEA [id number] [address] MEDICAL OFFICE [facility] 2022-08-09 2022-08-09 Refill Doctor [facility] 1.2.840.114 [id number] Univers 00:00:00 00:00:00 Unassigned, HEALTH 350.1.13.10 ity of [place] 4.2.7.2.686 Michael as NEHEMIAH?BLEA [id number] [address] OFFICE [facility] 2022-08-02 2022-08-02 Telephone [facility] 1.2.258.469 [id number] Univers 00:00:00 00:00:00 Irma A HEALTH 350.1.13.10 i ty of [place] 4.2.7.2.686 Michael as NEHEMIAH?BLEA [id number] [address] OFFICE [facility] 2022-07-29 2022-07-29 Outpatient [facility] [id number] Univers 09:30:00 10:01:10 IRMA morrisluanne [facility] 2022-07-29 2022-07-29 Office [facility] 1.2.840.114 [id number] Univers 09:30:00 10:01:10 Visit Irma A HEALTH 350.1.13.10 i ty of [place] 4.2.7.2.686 Michael as NEHEMIAH?BLEA [id number] [address] OFFICE [facility] 2022-07-29 2022-07-29 Refill Brian [facility] 1.2.840.114 [id number] Univers 00:00:00 00:00:00 Blane HEALTH 350.1.13.10 it y of [place] 4.2.7.2.686 Michael as NEHEMIAH?BLEA [id number] [address] OFFICE [facility] 2022-07-27 2022-07-27 Tele[facility] 1.2.322.455 [id number] Univers 00:00:00 00:00:00 Irma Tamayo HEALTH 350.1.13.10 i ty of [place] 4.2.7.2.686 Micheal as NEHEMIAH?BLEA [id number] [address] OFFICE [facility] 2022-07-22 2022-07-22 Outpatient [facility] [id number] Univers 10:30:00 11:05:29 IRMA ity [facility] 2022-07-22 2022-07-22 Office [facility] 1.2.840.114 [id number] Univers 10:30:00 11:05:29 Visit [facility] 350.1.13.10 i ty of [place] 4.2.7.2.686 Michael as NEHEMIAH?BLEA [id number] [address] OFFICE [facility] 2022-06-28 2022-06-28 Bryce [facility] 1.2.840.114 [id number] Univers 00:00:00 00:00:00 Blane HEALTH 350.1.13.10 it y of [place] 4.2.7.2.686 Michael as NEHEMIAH?BLEA [id number] [address] OFFICE [facility] 2022-06-10 2022-06-10 Outpatient [facility] DIRECTOR HAIR [id number] Univers 07:02:00 11:26:00 DARWIN ity of [facility] 2022-06-10 2022-06-10 Hospital [facility] 1.2.741.460 [id number] Univers 07:02:00 11:26:00 Encounter Darwinmilton LAZARO 350.1.13.10 [facility] [place].2.7.2.[place] [id number] [address] 2022-06-10 2022-06-10 Surgery [facility] 1.2.840.114 [id number] Univers 08:53:00 10:32:00 Darwin LAZARO 350.1.13.10 i ty of [place].2.7.[place] [id number] [facility] 020 Branch 2022-06-10 2022-06-10 Orders Doctor NANO 1.2.840.114 [id number] Univers 00:00:00 00:00:00 Only Unassigned, VILMA 350.1.13.10 ity of [facility] 4.2.7.2.686 Michael as [id number] [facility] 009 Branch 2022-06-09 2022-06-09 Outpatient [facility] [id number] Univers 08:00:00 08:00:00 DARWIN ames [facility] 2022-06-09 2022-06-09 Outpatient R [facility] [id number] Univers 08:00:00 08:00:00 DARWIN ames [facility] 2022-06-07 2022-06-07 Wrapping Checker [place], Adc Lab Main [facility] 1.2.8 40.114 [id number] Univers 10:45:00 11:00:00 Visit Darwin Honeycutt 350.1.13.10 ity [facility] 4.2.7.2.[place] [id number] [place] dic[address] 2022-06-07 2022-06-07 Outpatient R [facility] [id number] Univers 10:45:00 10:45:00 DARWIN ames [facility] 2022-06-07 2022-06-07 Outpatient R [facility] [id number] Univers 10:30:00 10:30:00 DARWIN ames [facility] 2022-06-07 2022-06-07 Outpatient R [facility] [id number] Univers 10:30:00 10:30:00 DARWIN ames [facility] 2022-06-03 2022-06-03 Office [facility] 1.2.840.114 [id number] Univers 13:00:00 13:15:00 Visit [facility] 350.1.13.10 it y erika [place] 4.2.7.2.686 Michael as NEHEMIAH?BLEA [id number] [place] fanta JOSEPH[address] 2022-06-03 2022-06-03 Outpatient R [facility] [id number] Univers 13:00:00 13:00:00 BLANE luanne [facility] 2022-06-03 2022-06-03 Outpatient R [facility] [id number] Univers 13:00:00 13:00:00 BLANE [facility] 2022-05-31 2022-05-31 Telemedici [facility] 1.2.840.114 [id number] Univers 10:30:00 10:45:00 ne Visit Darwin LAZARO 350.1.13.10 ity of [facility] 4.2.7.2.[place] [id number] [address] 2022-05-31 2022-05-31 Outpatient R [facility] [id number] Univers 10:30:00 10:30:00 DARWIN ames [facility] 2022-05-31 2022-05-31 Outpatient R [facility] [id number] Univers 10:30:00 10:30:00 DARWIN [facility] 2022-05-31 2022-05-31 Prep For [facility] 1.2.720.528 [id number] Univers 00:00:00 00:00:00 Surgery Darwin LAZARO 350.1.13.10 i ty [place] 4.2.7.2.[place] [id number] [address] 2022-05-28 2022-05-28 Telephone [facility] 1.2.840.114 [id number] Univers 00:00:00 00:00:00 Darwin LAZARO 350.1.13.10 i ty of [facility] 4.2.7.2.[place] [id number] [address] 2022-05-24 2022-05-24 Outpatient R [facility] [id number] Univers 11:00:00 12:05:33 DARWIN itluanne [facility] 2022-05-24 2022-05-24 Office [facility] 1.2.840.114 [id number] Univers 11:00:00 12:05:33 Visit Darwin SHEEBAJEAN 350.1.13.10 i ty of [place].7.2.[place] [id number] [facility] 098 [facility] 2022-05-24 2022-05-24 Orders Doctor NANO 1.2.840.114 [id number] Univers 00:00:00 00:00:00 Only Unassigned, VILMA 350.1.13.10 ity [place] [facility] 4.2.7.2.686 Michael as [id number] [address] 2022-04-29 2022-04-29 Office [facility] 1.2.840.114 [id number] Univers 12:30:00 13:06:12 Visit Irma Tamayo [facility] 350.1.13.10 i ty of [place] 4.2.7.2.686 Michael as NEHEMIAH?BLEA [id number] [address] OFFICE [facility] 2022-04-29 2022-04-29 Outpatient R FAHEEM[facility] [id number] Univers 12:30:00 13:06:12 IRMA ames [facility] 2022-04-29 2022-04-29 Outpatient R FAHEEM, [facility] [id number] Univers 12:30:00 12:30:00 IRMA [facility] 2022-04-26 2022-04-26 Refill Brian [facility] 1.2.840.114 [id number] Univers 00:00:00 00:00:00 Blane HEALTH 350.1.13.10 it y of [place] 4.2.7.2.686 Michael as NEHEMIAH?BLEA [id number] [address] OFFICE [facility] 2022-04-14 2022-04-14 Patient William [facility] 1.2.840.114 [id number] Univers 00:00:00 00:00:00 Secure Msg Kristina Godwin HEALTH 350.1.13.10 ity of [place] 4.2.7.2.686 Michael as NEHEMIAH?BLEA [id number] [address] MEDICAL OFFICE [facility] 2022-04-14 2022-04-14 Patient Doctor JAMEEL 1.2.840.114 [id number] Univers 00:00:00 00:00:00 Secure Msg Unassigned, HEALTH 350.1.13.10 ity [place] [facility] 4.2.7.2.686 Michael as NEHEMIAH?BLEA [id number] [address] OFFICE [facility] 2022-04-13 2022-04-13 Refdov [facility] 1.2.840.114 [id number] Univers 00:00:00 00:00:00 Blane HEALTH 350.1.13.10 it y [facility] 4.2.7.2.686 Michael as NEHEMIAH?BLEA [id number] [address] OFFICE [facility] 2022-04-07 2022-04-07 Refdov [facility] 1.2.840.114 [id number] Univers 00:00:00 00:00:00 [place] HEALTH 350.1.13.10 it y [facility] 4.2.7.2.686 Michael as NEHEMIAH?BLEA [id number] [address] OFFICE [facility] 2022-03-15 2022-03-15 Outpatient R [facility] [id number] Univers 00:00:00 00:00:00 ity of [facility] 2022-03-15 2022-03-15 Orders Doctor NANO 1.2.840.114 [id number] Univers 00:00:00 00:00:00 Only Unassigned, VILMA 350.1.13.10 ity of [place] [facility] 4.2.7.2.686 Michael as [id number] [address] 2022-03-09 2022-03-09 Outpatient Justine [facility] [id number] Univers 13:00:00 13:00:00 DARRYL itluanne of [facility] 2022-03-09 2022-03-09 Outpatient Justine [facility] [id number] Univers 13:00:00 13:00:00 [facility] 2022-03-05 2022-03-05 Refill [facility] 1.2.840.114 [id number] Univers 00:00:00 00:00:00 [place] HEALTH 350.1.13.10 it y of [place] 4.2.7.2.686 Michael as NEHEMIAH?BLEA [id number] [address] MEDICAL OFFICE [facility] 2022-03-04 2022-03-04 Telephone [facility] 1.2.064.299 [id number] Univers 00:00:00 00:00:00 [place] HEALTH 350.1.13.10 it y of [place] 4.2.7.2.686 Michael as NEHEMIAH?BLEA [id number] [address] OFFICE [facility] 2022-02-25 2022-02-25 Office [facility] 1.2.840.114 [id number] Univers 14:15:00 14:44:32 Visit [place]ane HEALTH 350.1.13.10 it y of [place] 4.2.7.2.686 Michael as NEHEMIAH?BLEA [id number] [address] OFFICE [facility] 2022-02-25 2022-02-25 Outpatient R [facility] [id number] Univers 14:15:00 14:44:32 [facility] 2022-02-25 2022-02-25 Outpatient [facility] [id number] Univers 14:15:00 14:15:00 [facility] 2022-02-19 2022-02-19 Patient [facility] 1.2.840.114 [id number] Univers 00:00:00 00:00:00 Secure Msg Irma A HEALTH 350.1.13.10 ity [facility] 4.2.7.2.686 Michael as NEHEMIAH?BLEA [id number] [address] MEDICAL OFFICE [facility] 2022-02-11 2022-02-11 Outpatient R [facility] [id number] Univers 10:15:00 10:45:57 DARRYL [facility] 2022-02-11 2022-02-11 Office [facility] 1.2.750.168 [id number] Univers 10:15:00 10:45:57 Visit Darryl Paulson HEALTH 350.1.13.10 it y of [place] 4.2.7.2.686 Michael as NEHEMIAH?BLEA [id number] [place]c zenne OPAL [address] [place] MEDICAL OFFICE [facility] 2022-02-04 2022-02-04 Outpatient R [facility] [id number] Univers 09:30:00 09:55:30 IRMA ity [facility] 2022-02-04 2022-02-04 Office [facility] 1.2.840.114 [id number] Univers 09:30:00 09:55:30 Visit Irma Tamayo [facility] 350.1.13.10 i ty of [facility] 4.2.7.2.686 Michael as NEHEMIAH?BLEA [id number] [address] OFFICE [facility] 2022-02-04 2022-02-04 Outpatient R [facility] [id number] Univers 09:30:00 09:55:30 IRMA ity [facility] 2022-02-03 2022-02-03 Orders Doctor NANO 1.2.840.114 [id number] Univers 00:00:00 00:00:00 Only Unassigned, VILMA 350.1.13.10 ity of [place] [facility] 4.2.7.2.686 Michael as [id number] [address] 2022-01-25 2022-01-25 Bryce [facility] 1.2.840.114 [id number] Univers 00:00:00 00:00:00 [place]ane HEALTH 350.1.13.10 it y [facility] 4.2.7.2.686 Michael as NEHEMIAH?BLEA [id number] [facility] [address] [facility] OFFICE [facility] 2022-01-20 2022-01-20 Telephone [facility] 1.2.840.114 [id number] Univers 00:00:00 00:00:00 Dashawn IVETH 350.1.13.10 i ty [facility] 4.2.7.2.[place] [id number] [place] dical NAL 188 [facility] 2022-01-18 2022-01-18 Office [facility] 1.2.840.114 [id number] Univers 10:00:00 11:19:37 Visit [facility] 350.1.13.10 i ty of [facility] 4.2.7.2.[place] [id number] [place] dical NAL 204 [facility] 2022-01-18 2022-01-18 Outpatient R [facility] [id number] Univers 10:00:00 11:19:37 [facility] 2022-01-18 2022-01-18 Outpatient R [facility] [id number] Univers 10:00:00 10:00:00 [facility] 2021-12-31 2021-12-31 Office [facility] 1.2.840.114 [id number] Univers 10:30:00 11:00:00 Visit Irma A HEALTH 350.1.13.10 i ty of [place] 4.2.7.2.686 Michael as NEHEMIAH?BLEA [id number] Nc fanta [place] [address] [facility] 2021-12-31 2021-12-31 Outpatient [facility] [id number] Univers 10:30:00 10:30:00 [facility] 2021-12-31 2021-12-31 Outpatient R [facility] [id number] Univers 10:30:00 10:30:00 [facility] 2021-12-16 2021-12-16 Telephone [facility] 1.2.840.114 [id number] Univers 00:00:00 00:00:00 Darryl L HEALTH 350.1.13.10 it y of [place] 4.2.7.2.686 Michael as NEHEMIAH?BLEA [id number] Nc fanta ST[place] [address] [facility] 2021-12-15 2021-12-15 Outpatient R [facility] [id number] Univers 09:15:00 09:59:27 DARRYL ames [facility] 2021-12-15 2021-12-15 Office [facility] 1.2.812.898 [id number] Univers 09:15:00 09:59:27 Visit Darryl MCKAY 350.1.13.10 it y of [place] 4.2.7.2.686 Michael as NEHEMIAH?BLEA [id number] Nc zenremedios ST[place] [address] [place] [address] MEDICAL OFFICE [facility] 2021-12-14 2021-12-14 Outpatient R MARTHA, [facility] [id number] Univers 10:30:00 10:30:00 GYPSY itluanne [facility] 2021-12-09 2021-12-09 Outpatient R FAHEEM, [facility] [id number] Univers 16:21:07 23:59:00 IRMA kwaku [facility] 2021-11-30 2021-11-30 Outpatient R [facility]THA [facility] [id number] Univers 09:30:00 10:25:47 GYPSY ity [facility] 2021-11-26 2021-11-26 Outpatient R GRAMM, [facility] [id number] Univers 12:52:12 23:59:00 JACKIE ity [facility] 2021-11-26 2021-11-26 Hospital [facility] 1.2.840.114 [id number] Univers 12:52:12 23:59:00 Encounter Jackie Tamayo [place] [id number] ity of [place] 4.2.7.2.686 [id number] [facility] [address] 2021-11-26 2021-11-26 Hospital Radiology [facility] 1.2.840.114 [id number] Univers 12:51:26 12:51:26 Encounter [place] [id number] [facility]y [facility] [id number] [facility] [phone] [facility] [address] 2021-11-19 2021-11-19 Outpatient [facility] [id number] Univers 11:09:57 23:59:00 ity of [facility] 2021-11-19 2021-11-19 Hospital Radiology [facility] 1.2.840.114 [id number] Univers 11:09:57 23:59:00 Encounter [place] [id number] [facility] 4[place] [id number] [facility] [address] 2021-11-17 2021-11-17 [facility] 1.2.840.114 [id number] Univers 00:00:00 00:00:00 Management Jackie Belkis [place] [id number] [facility] [id number] [facility] [phone] Me dical AMARIS [address] [facility] 2021-11-17 2021-11-17 Telephone [facility] [id number] Univers 00:00:00 00:00:00 [facility] [id number] it y of [place] [id number] Michael as NEHEMIAH?BLEA [phone] [place] dicremedios [place] [address] [facility] OFFICE [facility] 2021-11-16 2021-11-16 [facility], [place] [facility] 1.2.840.1 [id number] Univers 10:45:00 11:00:00 Visit Gypsy Thomas [facility] [id number] ity of [place] [id number] Michael as NEHEMIAH?BLEA [phone] Nc dical SHERYL [address] [facility] OFFICE [facility] 2021-11-16 2021-11-16 Outpatient R [facility] [id number] Univers 09:30:00 10:32:22 GYPSY ames of [facility] 2021-11-16 2021-11-16 Office [facility] 1.2.840.114 [id number] Univers 09:30:00 10:32:22 Visit [facility] 350.1.13.10 it y of [place] 4.2.7.2.686 Michael as NEHEMIAH?BLEA [phone] Nc dical SHERYL [address] [facility] OFFICE [facility] 2021-11-13 2021-11-13 Outpatient R [facility] [id number] Univers 15:00:00 15:00:00 IRMAPETTY ames [facility] 2021-11-11 2021-11-11 Outpatient R [facility] [id number] Univers 14:00:00 14:00:00 IRMA ames [facility] 2021-11-10 2021-11-10 Refdov Cartwright [facility] 1.2.840.114 [id number] Univers 00:00:00 00:00:00 [facility] 350.1.13.10 it y of [place] 4.2.7.2.686 Michael as NEHEMIAH?BLEA [phone] Nc fanta [address] MEDICAL OFFICE BUILDING 2021-11-09 2021-11-09 Emergency X [facility] ERT [id number] Univers 18:03:00 21:23:00 REJI ames [facility] 2021-11-09 2021-11-09 Emergency [facility] 1.2.848.040 [id number] Univers 18:03:00 21:23:00 Reji LAZARO 350.1.13.10 i ty of [place] 4.2.7.2.686 [facility] [phone] [address] 2021-11-08 2021-11-08 Emergency X [facility] ERT [id number] Univers 09:53:00 10:32:00 JENNIFER ames [facility] 2021-11-08 2021-11-08 Emergency [facility] 1.2.840.114 [id number] Univers 09:53:00 10:32:00 Jennifer LAZARO 350.1.13.10 ity of [place] 4.2.7.2.686 [facility] [phone] [address] 2021-11-08 2021-11-08 Orders Doctor NANO 1.2.840.114 [id number] Univers 00:00:00 00:00:00 Only Unassigned, VILMA 350.1.13.10 ity of [place] [facility] 4.2.7.2.686 Michael as [phone] [facility] [address] 2021-11-03 2021-11-03 Refdov [facility] 1.2.840.114 [id number] Univers 00:00:00 00:00:00 Irma Tamayo HEALTH 350.1.13.10 i ty of [place] 4.2.7.2.686 Michael as NEHEMIAH?BLEA [phone] [facility] JOSEPH [address] [facility] OFFICE [facility] 2021-10-22 2021-10-22 Office Faheem [facility] 1.2.840.114 [id number] Univers 11:30:00 13:06:49 Visit Irma Tamayo HEALTH 350.1.13.10 i ty of [place] 4.2.7.2.686 Michael as NEHEMIAH?BLEA [phone] Nc fanta [address] OFFICE [facility] 2021-10-22 2021-10-22 Outpatient R [facility] [id number] Univers 11:30:00 13:06:49 IRMA ames [facility] 2021-10-22 2021-10-22 Outpatient R [facility] [id number] Univers 11:30:00 11:30:00 IRMA ames [facility] 2021-10-13 2021-10-13 Outpatient R J[facility] [id number] Univers 11:00:00 11:32:29 JACKIE ames [facility] 2021-10-13 2021-10-13 Office [facility] 1.2.840.114 [id number] Univers 11:00:00 11:32:29 Visit [facility] 350.1.13.10 [facility] 4.2.7.2.686 [place] [phone] Nc fanta [facility] 204 [facility] 2021-10-13 2021-10-13 Outpatient R GRAMM[facility] [id number] Univers 11:00:00 11:32:29 JACKIE ames [facility] 2021-10-07 2021-10-07 Wrapping Checker Lab, Ang - Db [facility] 1.2.840.1 14 [id number] Univers 11:30:00 11:45:00 Visit Blane Cartwright 350.1.13.10 ity of [place] 4.2.7.2.686 Michael as NEHEMIAH?BLEA [phone] [facility] [address] [facility] OFFICE [facility] 2021-10-07 2021-10-07 Outpatient [facility] [id number] Univers 11:30:00 11:30:00 BLANE ames [facility] 2021-10-07 2021-10-07 [facility] 1.2.840.114 [id number] Univers 10:30:00 11:00:00 Visit Irma A HEALTH 350.1.13.10 i ty of [place] 4.2.7.2.686 Michael as NEHEMIAH?BLEA [phone] [address] OFFICE [facility] 2021-10-07 2021-10-07 Outpatient [facility] [id number] Univers 10:30:00 10:30:00 IRMA ames [facility] 2021-09-21 2021-09-21 Refill [facility] 1.2.840.114 [id number] Univers 00:00:00 00:00:00 Blane HEALTH 350.1.13.10 it y of [place] 4.2.7.2.686 Michael as NEHEMIAH?BLEA [id number] [address] OFFICE [facility] 2021-09-20 2021-09-20 Telephone [facility] 1.2.488.263 [id number] Univers 00:00:00 00:00:00 Irma A HEALTH 350.1.13.10 i ty of [place] 4.2.7.2.686 Michael as NEHEMIAH?BLEA [id number] [address] OFFICE [facility] 2021-09-18 2021-09-18 Patient [facility] 1.2.840.114 [id number] Univers 00:00:00 00:00:00 Secure Msg Irma A HEALTH 350.1.13.10 ity of [place] 4.2.7.2.686 Michael as NEHEMIAH?BLEA [phone] [address] OFFICE [facility] 2021-09-17 2021-09-17 Hospital [facility] 1.2.840.114 [id number] Univers 08:41:04 23:59:00 Encounter Irma A HEALTH 350.1.13.10 ity of [place] 4.2.7.2.686 Michael as NEHEMIAH?BLEA [phone] Nc fanta STANLEY [address] MEDICAL OFFICE [facility] 2021-09-17 2021-09-17 Wrapping Checker Lab, Ang - Db [facility] 1.2.840.1 14 [id number] Univers 08:39:27 08:54:27 Visit Cartwright Blane [facility] 350.1.13.10 ity of [place] 4.2.7.2.686 Michael as NEHEMIAH?BLEA [phone] Nc fanta ST[place] [address] MEDICAL OFFICE [facility] 2021-09-17 2021-09-17 Outpatient R FAHEEM[facility] [id number] Univers 07:30:00 08:41:57 IRMA ames [facility] 2021-09-17 2021-09-17 Outpatient R FAHEEM[facility] [id number] Univers 07:30:00 08:41:57 IRMA ames [facility] 2021-09-17 2021-09-17 Office [facility] 1.2.840.114 [id number] Univers 07:29:50 08:41:57 Visit Irma A [facility] 350.1.13.10 i ty of [place] 4.2.7.2.686 Michael as NEHEMIAH?BLEA [phone] Nc fanta [facility] [address] [facility] OFFICE [facility] 2021-08-24 2021-08-24 [facility] 1.2.840.114 [id number] Univers 11:04:25 23:59:00 Encounter [facility] 350.1.13.10 ity of [place] 4.2.7.2.686 Michael as NEHEMIAH?BLEA [phone] Nc fanta ST[place]LEY [address] MEDICAL OFFICE [facility] 2021-08-24 2021-08-24 Office [facility] 1.2.840.114 [id number] Univers 10:18:06 11:01:23 Visit Blane [facility] 350.1.13.10 it y [facility] 4.2.7.2.686 Michael as NEHEMIAH?BLEA [phone] Nc fanta ST[place]LEY [address] MEDICAL OFFICE BUILDING 2021-08-24 2021-08-24 Outpatient R [facility] [id number] Univers 10:15:00 11:01:23 BLANE ames [facility] 2021-07-30 2021-07-30 Telephone [facility] 1.2.213.777 [id number] Univers 00:00:00 00:00:00 Jackie Tamayo [place] 350.1.13.10 ity of [place] 4.2.7.2.686 [place] [phone] Nc fanta formerly [facility] [address] 2021-07-08 2021-07-08 Outpatient [facility] [id number] Univers 11:30:00 11:30:00 IRMA ames [facility] 2021-07-06 2021-07-06 Lilia [facility] 1.2.840.114 [id number] Univers 09:50:09 10:10:09 Care Katrina Tracksmith 350.1.13.10 it y of [place] 4.2.7.2.686 Michael as Nehemiah?Blea [phone] [facility] [address] Medical Office Building 2021-07-06 2021-07-06 Outpatient R [facility] [id number] Univers 10:00:00 10:00:00 KATRINA ames [facility] 2021-06-25 2021-06-25 Office [facility] 1.2.840.114 [id number] Univers 13:08:03 13:23:03 Visit Blane [facility] 350.1.13.10 it y of [place] 4.2.7.2.686 Michael as Nehemiah?Blea [phone] [facility] [address] Medical Office Building 2021-06-25 2021-06-25 Outpatient R [facility] [id number] Univers 12:30:00 12:30:00 BLANE ames [facility] 2021-06-19 2021-06-19 Refill [facility] 1.2.840.114 [id number] Univers 00:00:00 00:00:00 Irma A Health 350.1.13.10 i ty of [place] 4.2.7.2.686 Michael as Nehemiah?Blea [phone] [address] Office [facility] 2021-06-16 2021-06-16 Office Gramm[facility] 1.2.840.114 [id number] Univers 10:12:37 10:34:30 Visit Jackie Syton 350.1.13.10 ity of [place] 4.2.7.2.686 [place] [phone] [address] 2021-06-16 2021-06-16 Office Gr[facility] 1.2.840.114 [id number] Univers 10:12:37 10:34:30 Visit Jackie Syton 350.1.13.10 ity of [place] 4.2.7.2.686 [place] [id number] [address] 2021-06-16 2021-06-16 Outpatient R GRAMM[facility] [id number] Univers 10:00:00 10:34:30 JACKIE [facility] 2021-06-16 2021-06-16 Outpatient R GRAMM[facility] [id number] Univers 10:00:00 10:00:00 [facility] 2021-06-12 2021-06-12 Patient [facility] 1.2.840.114 [id number] Univers 00:00:00 00:00:00 Secure Msg Irma A Health 350.1.13.10 ity of [place] 4.2.7.2.686 Michael as Nehemiah?Blea [phone] [address] Office [facility] 2021-06-10 2021-06-10 Telephone [facility] 1.2.513.465 [id number] Univers 00:00:00 00:00:00 Irma A Health 350.1.13.10 i ty of [place] 4.2.7.2.686 Michael as Nehemiah?Blea [phone] [address] Office [facility] 2021-06-03 2021-06-03 Office [facility] 1.2.840.114 [id number] Univers 09:24:40 10:01:22 Visit Irma A [facility] 350.1.13.10 i ty of [place] 4.2.7.2.686 Michael as Nehemiah?Blea [phone] Nc zenremedios stanley 044 [facility] Office [facility] 2021-06-03 2021-06-03 Outpatient [facility] [id number] Univers 09:30:00 09:30:00 IRMA ames [facility] 2021-05-13 2021-05-13 Outpatient R RIKKI [facility] [id number] Univers 11:00:00 11:00:00 RIKKI CARTER [facility] 2021-05-13 2021-05-13 Office [facility] 1.2.740.634 [id number] Univers 10:30:32 10:53:55 Visit Rikki Lazaro 350.1.13.10 ity of [place] 4.2.7.2.686 [place] [facility] [phone] Nc fanta hayes 085 [facility] 2021-05-13 2021-05-13 Office [facility] 1.2.840.114 [id number] Univers 09:58:38 10:29:28 Visit Jackie Belkis Lazaro 350.1.13.10 ity of [place] 4.2.7.2.686 [place] [phone] Nc zenremedios nal 204 [facility] 2021-04-22 2021-04-22 Outpatient R [facility] [id number] Univers 20:00:00 20:00:00 ity of [facility] 2021-04-22 2021-04-22 Wrapping Checker 1, Najma Sleep Lab Bed [facility] 1. 2.840.114 [id number] Univers 15:23:33 17:53:33 Visit Rikki Carter 350.1.13. 10 ity of [place] 4.2.7.2.686 [place] [phone] [address] 2021-04-22 2021-04-22 Orders Doctor NANO 1.2.840.114 [id number] Univers 00:00:00 00:00:00 Only Unassigned, VILMA 350.1.13.10 ity of [place] [facility] 4.2.7.2.686 Michael as [phone] [address] 2021-04-15 2021-04-15 Office [facility] 1.2.542.460 [id number] Univers 16:26:36 16:56:36 Visit Janinegenesis Sulema [place] 350.1.13.10 ity of [place] 4.2.7.2.686 [place] [phone] Nc dical nal 085 [facility] 2021-04-15 2021-04-15 Outpatient R [facility] [id number] Univers 16:30:00 16:30:00 JANINE CARTERWAKhurram ity of [facility] 2021-04-10 2021-04-10 Urgent Sara Chavez [facility] 1.2.840. 114 [id number] Univers 16:19:28 16:41:34 Care Gina Castaneda 350.1.13.10 ity of [place] 4.2.7.2.686 Michael as Professio [phone] [facility] 044 [facility] 2021-04-10 2021-04-10 Outpatient R [facility] [id number] Univers 16:40:00 16:40:00 GINA ity of [facility] 2021-04-10 2021-04-10 Telephone [facility] 1.2.868.237 [id number] Univers 00:00:00 00:00:00 Irma Tamayo Health 350.1.13.10 i ty of [place] 4.2.7.2.686 Michael as Professio [phone] Nc [facility] [address] [place] Office [facility] 2021-04-06 2021-04-06 Office [facility] 1.2.840.114 [id number] Univers 14:57:28 15:49:25 Visit Jackie Syton 350.1.13.10 ity of [place] 4.2.7.2.686 [place] [phone] Nc dical nal 204 [facility] 2021-04-062021-04-06 Outpatient R [facility] [id number] Univers 15:00:00 15:00:00 JACKIE ames [facility] 2021-03-31 2021-03-31 Urgent Provider, [facility] 1.2.840.114 [id number] Univers 10:20:57 11:44:34 Care LeonelKathiaGinamarshall Mckay 350.1.13.10 ity of [place] 4.2.7.2.686 Michael as Professio [phone] [address] One 2021-03-31 2021-03-31 Outpatient R [facility] [id number] Univers 10:20:00 10:20:00 GINA ames [facility] 2021-03-31 2021-03-31 Telephone [facility] 1.2.850.685 [id number] Univers 00:00:00 00:00:00 [facility] 350.1.13.10 it y of [place] 4.2.7.2.686 Michael as Professio [phone] [address] One 2021-03-11 2021-03-11 Hospital [facility] 1.2.840.114 [id number] Univers 10:35:00 23:59:00 Encounter Irma Lazaro 350.1.13.10 ity of [place] 4.2.7.2.686 [place] [facility] [phone] [address] 2021-03-11 2021-03-11 Wrapping Checker Lab, Adc Fam Pob I [facility] 1.2. 840.114 [id number] Univers 10:03:29 10:23:29 [facility] 350.1.13.10 ity of [place] 4.2.7.2.686 Michael as Professio [phone] [address] One 2021-03-11 2021-03-11 Outpatient [facility] [id number] Univers 00:00:00 00:00:00 IRMA ames [facility] 2021-03-04 2021-03-04 Telephone [facility] 1.2.055.593 [id number] Univers 00:00:00 00:00:00 Irma Tamayo Health 350.1.13.10 i ty of [place] 4.2.7.2.686 Michael as Professio [phone] [address] One 2021-02-27 2021-02-27 Wrapping Checker Lab, Adc Fam Pob I [facility] 1.2. 840.114 [id number] Univers 08:40:22 09:00:22 Visit Irma Fuentes Health 350.1.13.10 ity of [place] 4.2.7.2.686 Michael as Professio [phone] [address] One 2021-02-27 2021-02-27 Office [facility] 1.2.840.114 [id number] Univers 07:55:21 08:41:33 Visit Irma Tamayo Health 350.1.13.10 i ty of [place] 4.2.7.2.686 Michael as Professio [phone] [address] One 2021-02-27 2021-02-27 Outpatient [facility] [id number] Univers 08:00:00 08:00:00 IRMA luanne [facility] 2021-02-25 2021-02-25 Outpatient R [facility]KKI [facility] [id number] Univers 11:30:00 11:30:00 RIKKI CARTER luanne [facility] 2021-02-20 2021-02-20 Outpatient R [facility] [id number] Univers 15:00:00 15:00:00 IRMA ames [facility] 2021-02-09 2021-02-09 Refill [facility] 1.2.840.114 [id number] Univers 00:00:00 00:00:00 Irma Tamayo Health 350.1.13.10 i ty of [place] 4.2.7.2.686 Michael as Professio [phone] [address] One 2021-02-05 2021-02-05 Refill [facility] 1.2.840.114 [id number] Univers 00:00:00 00:00:00 Irma A Health 350.1.13.10 i ty of [place] 4.2.7.2.686 Michael as Professio [phone] [address] One 2021-02-04 2021-02-04 Outpatient R LAURENJANINE [facility] [id number] Univers 14:00:00 14:00:00 EARLINELACHELLERIKKI MCKEON [facility] 2021-01-02 2021-01-02 Office [facility] 1.2.840.114 [id number] Univers 10:24:51 11:13:48 Visit Irma Tamayo Health 350.1.13.10 i ty of [place] 4.2.7.2.686 Michael as Professio [phone] [address] One 2021-01-02 2021-01-02 Outpatient [facility] [id number] Univers 10:30:00 10:30:00 IRMA [facility] 2020-12-23 2020-12-23 Refill CartwrightZ[facility] 1..840.114 [id number] Univers 00:00:00 00:00:00 Blane Health 350.1.13.10 it y of [place] 4.2.7.2.686 Michael as Professio [phone] [address] One 2020-12-11 2020-12-11 Telephone [facility] 1.2.505.652 [id number] Univers 00:00:00 00:00:00 Blane Health 350.1.13.10 it y of [place] 4.2.7.2.686 Michael as Professio [phone] [address] One 2020-11-19 2020-11-19 Outpatient R [facility] [id number] Univers 08:40:00 08:40:00 NORA [facility] 2020-10-30 2020-10-30 Orders Doctor MCGILL 1.2.840.114 [id number] Univers 00:00:00 00:00:00 Only Unassigned, VILMA 350.1.13.10 [facility] 4.2.7.2.686 Michael as [phone] [address] 2020-10-29 2020-10-29 Outpatient R [facility] [id number] Univers 08:50:00 08:50:00 NORA luanne [facility] 2020-10-28 2020-10-28 Patient Torsten [facility] 1.2.840.114 [id number] Univers 00:00:00 00:00:00 Outreach Ashvin PRIMARY 350.1.13.10 i ty of [facility] 4.2.7.2.686 [place] estefania TINOCO [phone] [address] 2020-10-22 2020-10-22 Outpatient R [facility] [id number] Univers 15:20:00 15:20:00 NORA [facility] 2020-10-17 2020-10-17 Wrapping Checker Lab, [facility] Fam Pob I [facility] 1.. 840.114 [id number] Univers 11:52:08 12:12:08 Visit Irma Fuentes [facility] 350.1.13.10 ity of [place] 4.2.7.2.686 Michael as Professio [phone] [address] Office [facility] 2020-10-17 2020-10-17 Office [facility] 1.2.840.114 [id number] Univers 11:01:35 11:57:38 Visit Irma Tamayo Health 350.1.13.10 i ty of [place] 4.2.7.2.686 Michael as Professio [phone] [address] Office [facility] 2020-10-17 2020-10-17 Outpatient [facility] [id number] Univers 11:00:00 11:00:00 IRMA morrisluanne [facility] 2020-10-13 2020-10-13 Orders Doctor MCGILL 1..840.114 [id number] Univers 00:00:00 00:00:00 Only Unassigned, VILMA 350.1.13.10 it[place] of [place] [facility]PITAL 4.2.7.2.686 Michael as [phone] [address] 2020-10-08 2020-10-08 Outpatient R [facility] [id number] Univers 09:45:00 09:45:00 BLANE itluanne [facility] 2020-07-29 2020-07-29 Orders Doctor NANO 1.2.840.114 [id number] Univers 00:00:00 00:00:00 Only Unassigned, VILMA 350.1.13.10 [place] of [place] HOSPITAL 4.2.7.2.686 Michael as [phone] [address] 2020-07-24 2020-07-24 Telephone [facility] 1.2.502.123 [id number] Univers 00:00:00 00:00:00 Irma A Health 350.1.13.10 i ty of [place] 4.2.7.2.686 Michael as Professio [phone] Nc dical nal [address] [place] [address] 2020-07-22 2020-07-22 Outpatient R [facility] [id number] Univers 11:00:00 11:00:00 GARY luanne [facility] 2020-07-22 2020-07-22 Patient Faheem [facility] 1.2.840.114 [id number] Univers 00:00:00 00:00:00 Secure Msg Irma A Health 350.1.13.10 ity of [place] 4.2.7.2.686 Michael as Professio [phone] [address] 2020-07-21 2020-07-21 Orders Doctor NANO 1.2.840.114 [id number] Univers 00:00:00 00:00:00 Only Unassigned, VILMA 350.1.13.10 [place] of [place] HOSPITAL 4.2.7.2.686 Michael as [phone] [address] 2020-07-14 2020-07-14 Patient TIMO CandelariaIT 1.2840.114 [id number] Univers 00:00:00 00:00:00 Secure Msg Manjit Y HEALTH 350.1.13.10 ity of [facility] 4[place]2.7.2.[place] [phone] [address] 2020-07-14 2020-07-14 Patient Brian, [facility] 1.2.840.114 [id number] Univers 00:00:00 00:00:00 Secure Msg Blane Lazaro 350.1.13.10 ity of [place] 4.2.7.2.686 [place] [phone] Nc dical nal 044 [facility] 2020-07-11 2020-07-11 Outpatient R [facility] [id number] Univers 10:00:00 10:00:00 MANJIT kwaku [facility] 2020-07-07 2020-07-07 Outpatient R [facility] [id number] Univers 12:00:00 12:00:00 BLANE ames [facility] 2020-07-04 2020-07-04 Patient Doctor [facility] 1.2.840.114 [id number] Univers 00:00:00 00:00:00 Secure Msg Unassigned, Health 350.1.13.10 ity of [place] 4.2.7.2.686 Michael as Professio [phone] Nc dic[address] Office [facility] 2020-07-03 2020-07-03 Outpatient [facility] [id number] Univers 12:45:00 12:45:00 BLANE ames [facility] 2020-06-27 2020-06-27 Wrapping Checker Lab, Adc Fam Pob I [facility] 1.. 840.114 [id number] Univers 15:47:58 15:57:58 Visit Irma Fuentes Health 350.1.13.10 ity of [place] 4.2.7.2.686 Michael as Professio [phone] Nc dical nal [address] [place] [address] Office Building One 2020-06-27 2020-06-27 Office [facility] [id number] Univers 14:28:12 15:57:21 Visit Irma A [facility] 350.1.13.10 i ty of [place] 4.2.7.2.686 Michael as Professio [phone] N[place] dic[address] Office [facility] 2020-06-27 2020-06-27 Outpatient R [facility] [id number] Univers 14:30:00 14:30:00 IRMA ity [facility] 2020-05-26 2020-05-26 Telephone Brian [facility] [id number] Univers 00:00:00 00:00:00 [facility] 350.1.13.10 it y of [place] 4.2.7.2.686 Michael as Professio [phone] [address] Office [facility] 2020-04-21 2020-04-21 Telephone NANO Cartwright [id number] Univers 00:00:00 00:00:00 Blane VILMA 350.1.13.10 it y of [facility] 4.2.7.2.686 Michael as [phone] [address] 2020-04-18 2020-04-18 Laboratory Lab, Adc Fam Pob I [facility] 1.2. 840.114 [id number] Univers 09:26:20 09:46:20 Only Gina Castan[facility] 350.1.13.10 ity of [place] 4.2.7.2.686 Michael as Professio [phone] [address] Office [facility] 2020-04-18 2020-04-18 Outpatient [facility] [id number] Univers 09:40:00 09:40:00 ity [facility] 2020-04-08 2020-04-08 Office Linhmary [facility] 1.2.840.114 [id number] Univers 10:37:06 11:27:06 Visit Kg Lazaro 350.1.13.10 i ty of [place] 4.2.7.2.686 [place] Profess[place] [phone] [address] 2020-04-08 2020-04-08 Outpatient R [facility] [id number] Univers 10:30:00 10:30:00 KG morrisluanne [facility] 2020-04-02 2020-04-02 Patient Doctor [facility] 1.2.840.114 [id number] Univers 00:00:00 00:00:00 Secure Msg Unassigned, Health 350.1.13.10 ity of [place] 4.2.7.2.686 Michael as Professio [phone] N[place] dical nal [address] [place] [address] 2020-03-26 2020-03-26 Telephone Brian DCCAROLE 1.2.405.893 [id number] Univers 00:00:00 00:00:00 [facility] 350.1.13.10 it y of [place] 4.2.7.2.686 Michael as Professio [phone] Nc dical nal [address] [place] [address] Office [facility] 2020-02-20 2020-02-20 [facility]phone [facility] 1.2.832.359 [id number] Univers 00:00:00 00:00:00 [facility] 350.1.13.10 it y of [place] 4.2.7.2.686 Michael as Professio [phone] N[place] dical nal [address] [place] [address] One 2020-02-06 2020-02-06 [facility] 1.2.840.114 [id number] Univers 00:00:00 00:00:00 [facility] 350.1.13.10 it y of [place] 4.2.7.2.686 Michael as Professio [phone] [place] dical [place]al [address] [place] [address] 2020-01-23 2020-01-23 Patient Brian [facility] 1.2.840.114 [id number] Univers 00:00:00 00:00:00 Secure Msg Blane Lazaro 350.1.13.10 it[place] [phone] [place] dical nal [address] [facility] 2020-01-23 2020-01-23 Patient Brian [facility] 1.2.840.114 [id number] Univers 00:00:00 00:00:00 Secure Msg Blane Lazaro 350.1.13.10 [place] [phone] [place] dical nal [address] [place] [address] 2020-01-21 2020-01-21 Telephone [facility] [id number] Univers 00:00:00 00:00:00 [facility] 350.1.13.10 it y of [place] 4.2.7.2.686 Michael as Professio [phone] [address] 2020-01-10 2020-01-10 [facility] 1.2.840.114 [id number] Univers 00:00:00 00:00:00 Secure Msg Blane Lazaro 350.1.13.10 it[place] [phone] [address] 2020-01-07 2020-01-07 [facility] 1.2.840.114 [id number] Univers 00:00:00 00:00:00 [facility] 350.1.13.10 it y of [place] 4.2.7.2.686 [place] as Professio [phone] [address] 2019-12-20 2019-12-20 [facility] 1.2.840.114 [id number] Univers 00:00:00 00:00:00 Secure Msg [facility] 350.1.13.10 ity of [place] 4.2.7.2.686 [place] as Professio [phone] [address] 2019-12-14 2019-12-14 Outpatient R [facility] [id number] Univers 10:40:00 10:40:00 IRMA ity [facility] 2019-12-13 2019-12-13 Office [facility] 1.2.840.114 [id number] Univers 16:21:24 17:05:27 Visit [facility] 350.1.13.10 it y of [place] 4.2.7.2.686 Michael as Professio [phone] [address] 2019-12-13 2019-12-13 [facility] [id number] Univers 16:00:00 16:00:00 GINA ity [facility] 2019-12-13 2019-12-13 Telephone Brian [facility] [id number] Univers 00:00:00 00:00:00 [facility] 350.1.13.10 it y of [place] 4.2.7.2.686 Michael as Professio [phone] Nc dicne nal [address] One 2019-12-06 2019-12-06 Orders Doctor NANO 1.2.840.114 [id number] Univers 00:00:00 00:00:00 Only Unassigned, VILMA 350.1.13.10 ity of [place] [facility] 4.2.7.2.686 Michale as [phone] [facility] [address] 2019-11-22 2019-11-22 Orders Doctor NANO 1.2.840.114 [id number] Univers 00:00:00 00:00:00 Only Unassigned, VILMA 350.1.13.10 it[place] of [place] [facility] 4.2.7.2.686 Michael as [phone] [address] 2019-11-21 2019-11-21 [facility]patient [facility] [id number] Univers 16:00:42 23:59:00 ity of [facility] 2019-11-21 2019-11-21 Hospital Radiology [facility] 1.2.840.114 [id number] Univers 16:00:00 23:59:00 Encounter [place] 350.1.13.10 it[place] of [place] [phone] [facility] [address] 2019-11-21 2019-11-21 Orders Doctor NANO 1.2.840.114 [id number] Univers 00:00:00 00:00:00 Only Unassigned, VILMA 350.1.13.10 ity of [place] [facility] 4.2.7.2.686 Michael as [phone] [address] 2019-11-02 2019-11-02 Patient Doctor [facility] 1.2.840.114 [id number] Univers 00:00:00 00:00:00 Secure Msg Unassigned, Health 350.1.13.10 [place] of [place] 4.2.7.2.686 [place] as Professio [phone] [address] Office Building One 2019-06-26 2019-06-26 Office Jez [facility] 1.2.840.114 [id number] Univers 13:16:09 14:38:22 Visit [facility] 350.1.13.10 it y of [place]2.[place] [phone] [facility] [address] 2019-06-22 2019-06-22 Patient Brian [facility] 1.2.840.114 [id number] Univers 00:00:00 00:00:00 Secure Msg [facility] 350.1.13.10 ity of [place] 4.2.7.2.686 Michael as Professio [phone] [address] Office [facility] One 2019-06-21 2019-06-21 Hospital [facility] 1.2.840.114 [id number] Univers 11:49:05 23:59:00 Encounter Irma A [place] 350.1.13.10 ity of [place] 4.2.7.2.686 [facility] [place] [phone] [facility] [address] 2019-06-21 2019-06-21 Office [facility] 1.2.840.114 [id number] Univers 10:03:52 11:34:40 Visit Irma A Health 350.1.13.10 i ty of [place] 4.2.7.2.686 Michael as Professio [phone] [address] Office [facility] One 2019-06-21 2019-06-21 Patient [facility] 1.2.840.114 [id number] Univers 00:00:00 00:00:00 Secure Msg Irma A Health 350.1.13.10 ity of [place] 4.2.7.2.686 Michael as Professio [phone] [address] Office Building One 2019-06-21 2019-06-21 Telephone Brian [facility] [id number] Univers 00:00:00 00:00:00 [facility] 350.1.13.10 it y of [place] 4.2.7.2.686 Michael as Professio [phone] [address] Office [facility] One 2019-06-20 2019-06-20 [facility] 1.2.840.114 [id number] Univers 14:34:58 23:59:00 Encounter David Lazaro 350.1.13.10 ity of [place]2.7.2.[place] [phone] [facility] [address] [place] [address] 2019-06-19 2019-06-19 Telephone Brian [facility] [id number] Univers 00:00:00 00:00:00 [facility] 350.1.13.10 it y of [place] 4.2.7.2.686 [place] as Professio [phone] [address] One 2019-05-24 2019-05-24 Office [facility] 1.2.840.114 [id number] Univers 14:03:53 14:18:53 Visit Blane Mckay 350.1.13.10 it y of [place] 4.2.7.2.686 [place] as Professio [phone] [address] One 2019-05-16 2019-05-16 Refill [facility] 1.2.840.114 [id number] Univers 00:00:00 00:00:00 [facility]ane [facility] 350.1.13.10 it y of [place] 4.2.7.2.686 [place] as Professio [phone] [address] One Results Test Description Test Time Test Comments Results Result Comments Source POCT MOLECULAR STREP 2022-07-22 15:39:45 Test Item Value Reference Range Interpretation Comme nts POCT Molecular Strep (test code = 96971-4) Negative Negative Lab Interpretation (test code = 93569-8) [id number] 15:39:45 Test Item Value Reference Range Interpretation Comments POCT Molecular Strep (test code = Negative Negative 15405-6) Lab Interpretation (test code = Normal 93966-3) [facility] This is a pre-surgical type and screen. ONCE [id number] 13:16:46 Test Item Value Reference Range Interpretation Comments ABO & RH (test code O Positive Performe d at [facility] = 20) Laboratory [facility] [place], [place] [address]Toll Free: [phone] A No. [id number] IAT (test code = Negative Performed a t [facility] 1185) Laboratory [facility] Blood [place] [address]Toll Free: [phone] A No. [id number] [facility] This is a pre-surgical type and screen. ONCE [id number] 13:16:46 Test Item Value Reference Range Interpretation Comments ABO & RH (test code O Positive Performe d at [facility] = 20) Laboratory [facility] [place], [place] [address]Toll Free: [phone] A No. [id number] IAT (test code = Negative Performed a t [facility] 1185) Laboratory [facility] [place], [place] [address]Toll Free: [phone] A No. [id number] [facility]
--- NOTE | 2022-09-12 09:10 | EDPHYS ---
Physician Documentation [facility] Name: Za Rosas Age: 72 yrs Sex: Female : 1950 Arrival Date: 09/12/2022 Time: 08:55 Bed Waiting Private MD: Blane Torres S ED Physician Dave Isaac HPI: 09/12 09:07 This 72 yrs old Female presents to ER via Unassigned with complaints of Sore [facility] Throat, Bumps in mouth. 09:07 The patient presents with sore throat. Onset: The symptoms/episode began/occurred jmm gradually, 2 month(s) ago. Is a 72-year-old female that presents to the ED with complaints of 2 months of sore throat. Patient has been prescribed antibiotics and steroids without relief. Pain is mainly deeper on the left side of the throat. Worsened with swallowing. Patient denies fever or chills. Denies vomiting. Patient is currently under the care of a assistant family teacher as well. Will be seeing ENT on Tuesday. But states that the discomfort brought her into the ER.. ROS: 09:07 Constitutional: Negative for fever, chills, and weight loss. [facility] 09:07 ENT: Positive for sore throat. 09:07 All other systems are negative. Exam: 09:07 Constitutional: This is a well developed, well nourished patient who is awake, alert, jmm and in no acute distress. Head/Face: atraumatic. Eyes: EOMI, no conjunctival erythema appreciated 09:07 Neck: Trachea midline, Supple Chest/axilla: Normal chest wall appearance and motion. Cardiovascular: Regular rate and rhythm. No edema appreciated Respiratory: Normal respirations, no respiratory distress appreciated Abdomen/GI: Non distended Back: Normal ROM Skin: General appearance color normal 09:07 ENT: Posterior pharynx: erythema, that is moderate. 09:07 Musculoskeletal/extremity: ROM: intact in all extremities. 09:07 Skin: Appearance: Color: normal in color. 09:07 Neuro: Motor: is normal. 09:07 Psych: Behavior/mood is pleasant, cooperative. MDM: 09:07 Patient medically screened. [facility] 09:08 Data reviewed: vital signs, nurses notes. Counseling: I had a detailed discussion with felipe the patient and/or guardian regarding: the historical points, exam findings, and any diagnostic results supporting the discharge/admit diagnosis, the need for outpatient follow up, to return to the emergency department if symptoms worsen or persist or if there are any questions or concerns that arise at home. Administered Medications: No medications were administered Disposition Summary: 09/12/22 09:09 Discharge Ordered Location: Home [facility] Condition: Stable [facility] Diagnosis - Acute pharyngitis, unspecified [facility] Followup: [facility] - With: Private Physician - When: 2 - 3 days - Reason: Recheck today's complaints, Continuance of care, Re-evaluation by your physician Discharge Instructions: - Discharge Summary Sheet [facility] - Pharyngitis [facility] Forms: - Medication Reconciliation Form [facility] - Thank You Letter [facility] - Antibiotic Education [facility] - Prescription Opioid Use [facility] Prescriptions: - MAGIC MOUTHWASH 1 part diphenhydramine, 1 part viscous lidocaine, 1 part Maalox, 1 part nystatin - take 5 milliliter by ORAL route 4 times per day As needed; 200 milliliter; [facility] Refills: 0, Product Selection Permitted - Pepcid 20 mg Oral Tablet - take 1 tablet by ORAL route every 12 hours for 10 days; 20 tablet; Refills: 0, [facility] Product Selection Permitted - cefdinir 300 mg Oral capsule - take 1 capsule by ORAL route every 12 hours; 20 capsule; Refills: 0, Product [facility] Selection Permitted Signatures: Bruno Oliveira PA PA [facility]
--- NOTE | 2022-09-12 09:19 | ER ---
Nurse's Notes [facility] Name: Za Rosas Age: 72 yrs Sex: Female : 1950 Arrival Date: 09/12/2022 Time: 08:55 Bed Waiting Private MD: Blane Torres S Diagnosis: Acute pharyngitis, unspecified Presentation: 09/12 09:16 Chief complaint: Patient states: sore throat and sores inmouth and Headache. iw Coronavirus screen: At this time, the client does not indicate any symptoms associated with coronavirus-19. Ebola Screen: Patient negative for fever greater than or equal to 101.5 degrees Fahrenheit, and additional compatible Ebola Virus Disease symptoms Patient denies exposure to infectious person. Patient denies travel to an Ebola-affected area in the 21 days before illness onset. No symptoms or risks identified at this time. Initial Sepsis Screen: Does the patient meet any 2 criteria? No. Patient's initial sepsis screen is negative. Does the patient have a suspected source of infection? No. Patient's initial sepsis screen is negative. Risk Assessment: Do you want to hurt yourself or someone else? Patient reports no desire to harm self or others. Onset of symptoms was September 12, 2022. 09:16 Method Of Arrival: Ambulatory 09:16 Acuity: KESHA 4 ED Course: 08:55 Patient arrived in ED. mr 08:55 Blane Torres MD is Private Physician. mr 09:06 [facility] 09:06 Dave Isaac MD is Attending Physician. [facility] 09:16 Triage completed. iw 09:18 Bouchra Gresham, RN is Primary Nurse. iw 09:18 Arm band placed on. iw Administered Medications: No medications were administered Outcome: :09 Discharge ordered by . [facility] 09:19 Patient left the ED. Signatures: Bruno Oliveira PA PA jmm Rivera, Mary mr Bouchra Gresham, RN RN iw
== END 2022-09-12 09:19 | disposition home or self-care (01) ==
LOC: ER 08:51
DX: J02.9 Acute pharyngitis, unspecified (principal); R51.9 Headache, unspecified
CPT/HCPCS: 99281